=== PATIENT | male | born 1955 | race Caucasian/White ===

== ENCOUNTER → 2019-06-03 09:16 | Outpatient (CLI) | payer MEDICARE, OTHER, SELFPAY ==
[2019-06-03 10:12] LABS: Alanine Aminotransferase 9 IU/L (<50); Albumin 4.3 g/dL (3.5-5.0); Albumin Globulin Ratio 1.7 (1.0-2.8); Alkaline Phosphatase 70 U/L (38-126); Aspartate Aminotransferase 22 IU/L (17-59); BUN Creatinine Ratio 25.6 (6-22); Bilirubin Total 0.6 mg/dL (0.2-1.3); Blood Urea Nitrogen 23 mg/dL (9-20); Calcium 9.6 mg/dL (8.4-10.2); Carbon Dioxide 31 mmol/L (22-32); Chloride 104 mmol/L (98-107); Cholesterol 159 mg/dL (140-199); Estimated Glomerular Filt Rate > 60.0 mL/min (>60); Globulin 2.6 g/dL (1.7-4.1); Glucose 109 mg/dL (80-110); HDL Cholesterol 60 mg/dL (40-60); HEMOLYSIS < 15 (0-50); LDL Cholesterol Calculated 80 mg/dL (<100); Potassium 3.8 mmol/L (3.4-5.1); Sodium 142 mmol/L (137-145); Total Protein 6.9 g/dL (6.3-8.2); Triglycerides 93 mg/dL (35-150)
[2019-06-03 10:42] LABS: Prostate Specific Antigen 1.62 ng/mL (0.10-4.00)
[2019-06-03 14:42] LABS: Creatinine Urine Random 99.7 mg/dL
[2019-06-03 14:45] LABS: Microalbumin Urine Random 0.8 mg/dL (0-1.6)
== END ==
PROVIDERS: PCP Nurse Practitioner Family; Visit Provider Nurse Practitioner Family
DX: Z13.6 Encounter for screening for cardiovascular disorders (principal); Z12.5 Encounter for screening for malignant neoplasm of prostate; I10 Essential (primary) hypertension
CPT/HCPCS: 36415; 80053; 80061; 82043; 82570; 84153

== ENCOUNTER → 2019-08-14 14:41 | Outpatient (CLI) | payer MEDICARE, OTHER, SELFPAY ==
--- NOTE | 2019-08-14 | DI.US.S_ITS ---
PROCEDURE: US ABD AORTA ANEURYSM SCREEN INDICATIONS: AAA SCREEN TECHNIQUE: Real time scanning was performed of the aorta and iliac arteries, with image documentation. COMPARISON: None. FINDINGS: Aorta: Proximal aortic diameter measures 2.7 cm. Mid-aorta measures 2.3 cm. Distal aortic diameter is 2.3 cm. Iliac arteries: Right common iliac artery measures 1.4 cm. Left common iliac artery measures 1.4 cm. IMPRESSION: No sonographic evidence for aneurysmal dilatation of the abdominal aorta. There is ectasia of the proximal abdominal aorta measuring up to 2.7 cm in diameter. Recommend followup imaging in 5 years. Dictated by: Iván Doty M.D. on 08/14/2019 at 22:07 Approved by: Iván Doty M.D. on 08/14/2019 at 22:10
== END ==
PROVIDERS: Family Provider Nurse Practitioner Family; PCP Nurse Practitioner Family; Visit Provider Nurse Practitioner Family
DX: Z13.6 Encounter for screening for cardiovascular disorders (principal); I77.811 Abdominal aortic ectasia
CPT/HCPCS: 76706

== ENCOUNTER → 2019-09-22 06:46 | Outpatient (CLI) | payer MEDICARE, OTHER, SELFPAY ==
--- NOTE | 2019-09-22 | DI.ECHO.S_ITS ---
[facility]---------+ [facility] +---------+ : : [address] : : : : [id number] : : : : Phone: [phone]+ Echocardiogram Report + + :Name: EVER WESLEY Study Date: 09/22/2019 Height: 72 in : :[facility] Weight: 227 lb : : Gender: Male BSA: 2.2 m2 : :: 1955 Age: 64 yrs BP: 158/86 mmHg: :Reason For Study: Atrial fibrillation : :Ordering Physician: Itzel : :Cierami Performed By: Rose Kumari : :Referring: MODESTO OSUNA : + + Interpretation Summary 1) Mildly increased left ventricular thickness (concentric) with normal size, wall motion, and systolic function (EF 60-65%). 2) The right ventricle is normal in size and function. 3) No significant valvular abnormalities. 4) The ascending aorta is mildly enlarged at 3.8cm. 5) No prior Echo available for comparison. Procedure: A two-dimensional transthoracic echocardiogram with color flow and Doppler was performed. The study quality was technically adequate. There is no prior echocardiogram noted for this patient. The patient was in sinus bradycardia with heart rates between 49-63 bpm during the exam. Left Ventricle: The left ventricle is normal in size. There is mild concentric left ventricular hypertrophy. The ejection fraction is estimated to be 60-65%. Diastolic parameters suggest probable normal left ventricular diastolic function and normal filling pressures. Right Ventricle: The right ventricle is normal in size and function. Atria: The left atrium is mildly dilated. Right atrial size is normal. There is no Doppler evidence for an interatrial shunt. Mitral Valve: The mitral valve is normal in structure and function. There is mild mitral regurgitation. Aortic Valve: The aortic valve is trileaflet. There is mild aortic valve sclerosis. There is no aortic valve stenosis. No aortic regurgitation is present. Tricuspid Valve: The tricuspid valve is normal in structure and function. There is mild tricuspid regurgitation. Right ventricular systolic pressure is estimated to be 23 mmHg plus the clinically estimated CVP which cannot be estimated on this exam. Pulmonic Valve: The pulmonic valve is normal in structure and function. There has been no significant change since the previous study. Great Vessels: The aortic root is normal size. The ascending aorta is mildly enlarged. The inferior vena cava was not well visualized. Pericardium/ Pleura There is no pericardial effusion. There is no pleural effusion. MMode/2D Measurements & Calculations LVIDd: 5.0 cm LVOT diam: 2.3 cm LVIDs: 3.0 cm Ao root diam: 3.1 cm FS: 39.5 % asc Aorta Diam: 3.8 cm EPSS: 0.42 cm Ao Arch Diam (Prox Trans): 2.8 cm IVSd: 1.2 cm LVPWd: 1.0 cm LV [place]. diameter/BSA (cm/m^2): 2.2 LV sys. diameter/BSA (cm/m^2): 1.4 LA A2 area: 28.9 cm2 RA long axis: 5.4 cm LA A4 area: 19.9 cm2 RA area: 20.2 cm2 LA length (vol): 5.6 cm RA vol: 64.4 ml LA vol: 86.5 ml RA : 28.6 ml/m2 LA vol index: 38.5 ml/m2 RVD1 (basal): 3.9 cm TAPSE: 2.2 cm Doppler Measurements & Calculations Ao V2 max: 172.0 cm/sec LVOT Max Tyrone: 133.2 cm/sec Ao V2 mean: 110.7 cm/sec LV V1 max P.1 mmHg Ao max P.8 mmHg LV V1 VTI: 26.3 cm Ao mean P.8 mmHg JAREN(I,D): 3.0 cm2 Ao V2 VTI: 37.3 cm JAREN(V,D): 3.3 cm2 sev ratio: 0.71 JAREN indexed to BSA (cm^2/m^2): 1.3 MV E max tyrone: 87.6 cm/sec TR max tryone: 237.7 cm/sec MV A max tyrone: 84.1 cm/sec TR max P.6 mmHg MV E/A: 1.0 PA V2 max: 89.4 cm/sec Med Peak E' Tyrone: 8.6 cm/sec PA V2 mean: 62.8 cm/sec E/E' med: 10.1 PA mean P.8 mmHg Lat Peak E' Tyrone: 14.4 cm/sec PA pr(Accel): 28.1 mmHg E/E' lat: 6.1 E/e' average: 8.1 MV dec time: 0.22 sec MV P1/2t: 68.6 msec MV P1/2t max tyrone: 88.9 cm/sec SV(LVOT): 110.8 shanique MVA(P1/2t): 3.2 cm2 Reading Physician:09:36 AM
== END ==
PROVIDERS: Family Provider Nurse Practitioner Family; PCP Nurse Practitioner Family; Referring Provider Internal Medicine Cardiovascular Disease; Visit Provider Internal Medicine Cardiovascular Disease
DX: I08.3 Combined rheumatic disorders of mitral, aortic and tricuspid valves (principal); I77.89 Other specified disorders of arteries and arterioles; I48.0 Paroxysmal atrial fibrillation
CPT/HCPCS: 93306

== ENCOUNTER → 2019-11-27 08:18 | Outpatient (CLI) | payer MEDICARE, OTHER, SELFPAY ==
[2019-11-27 09:17] LABS: Add Manual Diff / Slide Review NO; Basophils Absolute Auto 100 /uL (0-100); Basophils Percent Auto 1.1 % (0-2); Eosinophils Absolute Auto 100 /uL (0-450); Eosinophils Percent Auto 2.5 % (2-4); Hematocrit 45.4 % (41-53); Hemoglobin 15.6 g/dL (13.5-17.5); Lymphocytes Absolute Auto 1300 /uL (1100-4500); Lymphocytes Percent Auto 22.6 % (25-40); Mean Corpuscular HGB Conc 34.3 % (30-36); Mean Corpuscular Hemoglobin 31.2 PG (26-34); Mean Corpuscular Volume 90.7 fL (80-100); Monocytes Absolute Auto 400 /uL (0-900); Monocytes Percent Auto 7.9 % (3-14); Neutrophils Absolute Auto 3700 /uL (1500-7000); Neutrophils Percent Auto 65.9 % (50-75); Platelet Count 182 X10^3/uL (150-400); Red Blood Cell Count 5.01 X10^6/uL (4.5-5.9); Red Cell Distribution Width 13.7 % (11.6-14.8); White Blood Cell Count 5.7 X10^3/uL (4.5-11.0)
[2019-11-27 09:38] LABS: BUN Creatinine Ratio 30.8 (6-22); Blood Urea Nitrogen 24 mg/dL (9-20); Calcium 9.3 mg/dL (8.4-10.2); Carbon Dioxide 28 mmol/L (22-32); Chloride 106 mmol/L (98-107); Estimated Glomerular Filt Rate > 60.0 mL/min (>60); Glucose 109 mg/dL (80-110); HEMOLYSIS < 15 (0-50); Sodium 141 mmol/L (137-145)
== END ==
PROVIDERS: Family Provider Nurse Practitioner Family; PCP Nurse Practitioner Family; Referring Provider Internal Medicine Cardiovascular Disease; Visit Provider Internal Medicine Cardiovascular Disease
DX: I10 Essential (primary) hypertension (principal)
CPT/HCPCS: 36415; 80048; 85025

== ENCOUNTER → 2020-02-13 07:29 | Outpatient (CLI) | payer MEDICARE, OTHER, SELFPAY ==
[2020-02-13 07:43] LABS: Add Manual Diff / Slide Review NO; Basophils Absolute Auto 100 /uL (0-100); Eosinophils Absolute Auto 100 /uL (0-450); Eosinophils Percent Auto 1.7 % (2-4); Hematocrit 47.4 % (41-53); Hemoglobin 16.4 g/dL (13.5-17.5); Lymphocytes Absolute Auto 1100 /uL (1100-4500); Lymphocytes Percent Auto 17.7 % (25-40); Mean Corpuscular HGB Conc 34.5 % (30-36); Mean Corpuscular Hemoglobin 31.1 PG (26-34); Monocytes Absolute Auto 400 /uL (0-900); Neutrophils Absolute Auto 4700 /uL (1500-7000); Neutrophils Percent Auto 72.6 % (50-75); Platelet Count 198 X10^3/uL (150-400); Red Blood Cell Count 5.27 X10^6/uL (4.5-5.9); Red Cell Distribution Width 13.5 % (11.6-14.8); White Blood Cell Count 6.4 X10^3/uL (4.5-11.0)
[2020-02-13 07:55] LABS: Alanine Aminotransferase 9 IU/L (<50); Albumin 4.4 g/dL (3.5-5.0); Albumin Globulin Ratio 1.6 (1.0-2.8); Alkaline Phosphatase 76 U/L (38-126); Aspartate Aminotransferase 21 IU/L (17-59); BUN Creatinine Ratio 29.4 (6-22); Bilirubin Total 0.8 mg/dL (0.2-1.3); Blood Urea Nitrogen 25 mg/dL (9-20); Calcium 9.9 mg/dL (8.4-10.2); Carbon Dioxide 27 mmol/L (22-32); Chloride 107 mmol/L (98-107); Estimated Glomerular Filt Rate > 60.0 mL/min (>60); Globulin 2.7 g/dL (1.7-4.1); Glucose 114 mg/dL (80-110); HEMOLYSIS < 15 (0-50); Potassium 4.1 mmol/L (3.4-5.1); Sodium 140 mmol/L (137-145); Total Protein 7.1 g/dL (6.3-8.2)
[2020-02-13 08:28] LABS: HEMOLYSIS 19 (0-50); Iron 243 ug/dL (49-181)
[2020-02-13 08:30] LABS: Ferritin 42 ng/mL (18-464)
[2020-02-13 08:39] LABS: Percent Iron Saturation 92 % (20-50); Total Iron Binding Capacity 265 ug/dL (261-462); Transferrin 204 mg/dL (206-381)
== END ==
PROVIDERS: Internal Medicine Hematology & Oncology; Family Provider Nurse Practitioner Family; PCP Nurse Practitioner Family; Referring Provider Nurse Practitioner Family; Visit Provider Nurse Practitioner Family
DX: Z13.820 Encounter for screening for osteoporosis (principal); R29.890 Loss of height; C43.9 Malignant melanoma of skin, unspecified; E83.119 Hemochromatosis, unspecified; Z00.00 Encounter for general adult medical examination without abnormal findings; Z87.891 Personal history of nicotine dependence
CPT/HCPCS: 36415; 77080; 80053; 82728; 83540; 83550; 85025

== ENCOUNTER → 2020-02-20 14:27 | Outpatient (CLI) | payer MEDICARE, OTHER, SELFPAY ==
[2020-02-21 18:24] LABS: COVID19 Sendout Not Detected (Not Detect)
== END ==
PROVIDERS: Family Provider Nurse Practitioner Family; PCP Nurse Practitioner Family; Visit Provider Physician Assistant
DX: Z11.59 Encounter for screening for other viral diseases (principal)
CPT/HCPCS: 87635

== ENCOUNTER 2020-02-23 07:16 | Day surgery (SDC) | payer MEDICARE, OTHER, SELFPAY ==
[2020-02-23 07:33] VITALS: BP 150/86; PULSE 82; RESP 16; TEMP 36.1; O2SAT 96; BMI 28.5
[2020-02-23] MEDS: LACTATED RINGERS 1,000 ML 200 ML IV ×2 (07:48→08:07)
--- NOTE | 2020-02-23 07:56 | PM.HP.1 ---
History of Present Illness History of Present Illness Date Patient Seen: 02/23/20 Time Patient Seen: 07:56 Chief complaint: [facility] [place] Narrative: The patient presents for colorectal sreening. The previous colonoscopy 10 years ago which was normal. No personal or family history of colon cancer. On further history denies any recent gastrointestinal symptoms. No nausea, vomiting, abdominal pain, loss of appetite, unexplained weight loss, change in bowel habits, diarrhea, constipation, melena, hematochezia, or bright red blood per rectum. Patient History Medical History Ankle pain (Inactive ~2001) Aortic ectasia, abdominal (Acute 07/2019) Atrial fibrillation (Chronic 2004) Balance problem (Acute 2016) Cervical spine disease (Chronic ~2007) Chronic back pain (Chronic ~1993) Degenerative joint disease (DJD) of lumbar spine (Chronic ~1994) Fractures (Resolved ~1969) GERD (gastroesophageal reflux disease) (Chronic 2004) GI bleeding (Inactive ~2002) Hearing loss (Chronic) Hemochromatosis (Chronic 2011) History of melanoma in situ (Acute 2016) History of smoking 10-25 pack years (Chronic) Hypertension (Chronic 1999) Melanoma (Chronic ~2016) Mumps (Resolved ~1959) Positive PPD (Inactive ~1994) Rubella (Resolved ~1960) Shoulder pain (Chronic ~2018) Sleep apnea (Chronic ~2008) Vision disorder (Chronic) Surgical History Anesthesia (Resolved) History of ankle fusion (Resolved ~01/2013) History of arthroscopy of left knee (Resolved ~01/2014) History of inguinal hernia repair (Resolved) History of left hip replacement (Resolved ~2008) History of tonsillectomy (Resolved ~1959) Family & Social History Family History Father History of heart disease Congestive heart failure Mother History of heart disease Congestive heart failure Brother Hypertension Grandfather History of heart disease Congestive heart failure Grandmother No problems noted. Grandfather Kidney disease Grandmother Aneurysm Social History: household members spouse Tobacco & Substance use: Smoking Status Former smoker alcohol intake never Substance Use Type does not use Meds Home Medications and Allergies Home Medications Medication Instructions Recorded Confirmed Type cholecalciferol (vitamin D3) 25 1,000 unit PO BID cap 06/03/19 02/23/20 History mcg (1,000 unit) capsule clindamycin HCl 150 mg capsule 600 mg PO ONCE PRN cap 06/03/19 02/23/20 History multivitamin 1 tab PO DAILY 06/03/19 02/23/20 History propafenone 325 mg 325 mg PO BID cap 06/03/19 02/23/20 History capsule,extended release 12 hr diltiazem HCl 420 mg capsule,24 420 mg PO QAM 09/15/19 02/23/20 History hr,extended release apixaban 5 mg tablet 5 mg PO BID 09/17/19 02/23/20 History famotidine 20 mg tablet 20 mg PO DAILY #90 tab 12/31/19 02/23/20 Rx Allergies Allergy/AdvReac Type Severity Reaction Status Date / Time Penicillins Allergy Mild Hives, Verified 09/20/19 12:50 swelling Review of Systems Review of Systems Narrative: A 10 point review of systems is negative except as noted in the HPI Exam Vital Signs (past 8 hours): - 02/23/20 07:33 Temperature 97.0 F L Pulse Rate 82 Respiratory Rate 16 Blood Pressure 150/86 H Pulse Oximetry 96 Oxygen Delivery Method Room Air Narrative Exam Narrative: General-no acute distress, well nourished HEENT-moist mucous membranes, no scleral icterus Neck-supple, no lymphadenopathy Chest- non labored respirations, clear to auscultation bilaterally Cardiac-regular rate no peripheral edema Abdomen-soft, nontender, non distended Extremities-warm, well perfused Neurological-alert and oriented, no focal deficits Assessment & Plan Assessment and plan (1) Screening for colon cancer: Status: Acute Assessment & Plan narrative: The patient requires colorectal screening and colonoscopy is recommended. Technical details were discussed. Risks, benefits, alternatives explained. Risks including but not limited to myocardial infarction, aspiration, bleeding, pain, missed lesion, incomplete examination, need for further radiographic studies, colonic perforation, and need for major abdominal surgery were discussed. All questions were answered to their satisfaction, and they are in agreement with this plan.
[2020-02-23] MEDS: fentaNYL 250 MCG/5 ML INJ IV (08:02)
[2020-02-23] MEDS: MIDAZOLAM 5 MG/5 ML VIAL IV (08:02)
--- NOTE | 2020-02-23 08:26 | PM.OP.ENDO ---
Operative Date/Time/Diagnoses Date of procedure: 02/23/20 Time of procedure: 08:26 Pre-op diagnosis: Screening colonoscopy Post-op diagnosis: same Procedure & Clinicians Study performed: Colonoscopy Same procedure as scheduled: Yes Indications: 65-year-old male last colonoscopy 10 years ago presents for routine screening. Surgeon: Everett Felix Procedure Notes SCOAP/Timeout: Performed Procedure in detail: Patient placed in left lateral recumbent position. Time out was performed. Procedural sedation was administered with Versed and Fentanyl. Examination began with a thorough inspection of the perianal area there was no evidence of fissures, fistulae, external hemorrhoids or cutaneous malignancy. The colonoscopy scope was then placed into the rectum the the lumen was insufflated with air. The scope was carefully advanced forward. Ultimately the cecum was intubated and confirmed by identification of the ileocecal valve and the confluence of the taenia. The scope was then slowly withdrawn examining colon thoroughly in all directions. In the rectum the rectal columns were identified and retroflexion of the scope was performed for inspection of the distal rectum and anal canal. The colonoscopy was notable for the followin. Quality of the preparation-fair 2. No masses or polyps 3. Sigmoid diverticulosis. Scope withdrawal time: 6 Sedation minutes: 20 Findings: diverticulosis Specimen(s): none sent Complications: none Impression: Diverticulosis Post-procedure Recommendations: Colonscopy in 10 years Disposition: same day surgery
[2020-02-23 08:29] VITALS: BP 124/80; PULSE 76; RESP 16; TEMP 36.8; O2SAT 97
[2020-02-23 08:35] VITALS: BP 121/81; PULSE 70; RESP 13; O2SAT 97
[2020-02-23 08:40] VITALS: BP 102/67; PULSE 75; RESP 14; TEMP 36.6; O2SAT 96
[2020-02-23 09:04] VITALS: BP 137/79; PULSE 74; RESP 16; TEMP 36.7; O2SAT 96
== END 2020-02-23 09:03 | disposition home or self-care (01) ==
PROVIDERS: Family Provider Nurse Practitioner Family; PCP Nurse Practitioner Family; Referring Provider Nurse Practitioner Family; Visit Provider Surgery
PROC: 0DJD8ZZ Inspection of Lower Intestinal Tract, Via Natural or Artificial Opening Endoscopic (ICD-10-PCS; CPT 45378; principal; 2020-02-23 08:30)
DX: Z12.11 Encounter for screening for malignant neoplasm of colon (principal); K57.30 Diverticulosis of large intestine without perforation or abscess without bleeding; K21.9 Gastro-esophageal reflux disease without esophagitis; I10 Essential (primary) hypertension; G47.30 Sleep apnea, unspecified
CPT/HCPCS: G0121; 99152; J2250; J3010

== ENCOUNTER → 2020-03-10 09:02 | Outpatient (CLI) | payer MEDICARE, OTHER, SELFPAY ==
[2020-03-10 10:29] LABS: Free T4, Direct Thyroxine 1.06 ng/dL (0.78-2.19)
[2020-03-10 10:43] LABS: Thyroid Stimulating Hormone 2.05 uIU/mL (0.47-4.68)
[2020-03-10 11:09] LABS: Vitamin B12 Reflex MMA if <400 770 pg/mL (239-931)
== END ==
PROVIDERS: Family Provider Nurse Practitioner Family; PCP Nurse Practitioner Family; Referring Provider Psychiatry & Neurology Neurology; Visit Provider Psychiatry & Neurology Neurology
DX: R26.9 Unspecified abnormalities of gait and mobility (principal); G60.3 Idiopathic progressive neuropathy; R27.9 Unspecified lack of coordination
CPT/HCPCS: 36415; 82607; 84439; 84443

== ENCOUNTER 2020-08-18 09:45 | Outpatient (RCR) | payer MEDICARE, OTHER, SELFPAY ==
--- NOTE | 2020-07-20 14:57 | PT.OIE ---
Current Diagnoses Unspecified abnormalities of gait and mobility (07/20/20) Past Medical History (Last Reviewed 02/23/20 @ 07:57 by Everett Felix MD) Ankle pain (~2001) Aortic ectasia, abdominal (07/2019) Atrial fibrillation (2004) Balance problem (2016) Cervical spine disease (~2007) Chronic back pain (~1993) Degenerative joint disease (DJD) of lumbar spine (~1994) Fractures (~1969) GERD (gastroesophageal reflux disease) (2004) GI bleeding (~2002) Hearing loss Hemochromatosis (2011) History of melanoma in situ (2016) History of smoking 10-25 pack years Hypertension (1999) Melanoma (~2016) Mumps (~1959) Positive PPD (~1994) Rubella (~1960) Shoulder pain (~2018) Sleep apnea (~2008) Vision disorder Past Surgical History (Last Reviewed 02/23/20 @ 07:57 by Everett Felix MD) Anesthesia History of ankle fusion (~01/2013) History of arthroscopy of left knee (~01/2014) History of inguinal hernia repair History of left hip replacement (~2008) History of tonsillectomy (~1959) Visit Care Team Role Provider Type VIVI Ponce Family Provider Advanced Customer Service Technician Primary Care Provider Specialty: Family Practice Address: [address] [place] [address], [id number] Email: [email or web address] Ofelia Neal MD Attending Provider Non-Staff Referring Provider Specialty: Neurology Address: [address] [place] [address], [id number] Email: Physical Therapy Initial Evaluation PT-OP-A Visit Information Start: 07/15/20 15:29 Freq: Status: Active Protocol: Document 07/20/20 13:01 MB (Rec: 07/20/20 13:18 MB [id number]) Out-Patient Physical Therapy Visit Information Visit Information Visit Type Initial Evaluation Visit Start Time 13:01 Visit Stop Time 14:00 Total Visit Minutes 59 Visit Number 1 Evaluation Information Evaluation Date 07/20/20 PT-OP-B Current Condition Start: 07/15/20 15:29 Freq: Status: Active Protocol: Document 07/20/20 13:01 MB (Rec: 07/20/20 13:18 MB [id number]) Current Condition History of Current Condition Onset Date 2015 Current Complaints Balance and inability to walk in a straight line History of Current Condition PMH: increased ferritin from hemochromatosis, right ankle surgery 2001 to remove bone spurs and pt had trouble and then had to have fusion in 2012. He has history of arthritis. Pt reports that since surgery 2012, his toes went numb and he never got his sensation back. He has three screws in. Further PMH: HTN, a -fib and on blood thinner, left THR 2008, vericose veins, neck arthritis. If pt turns his head to the left for long enough, he gets tingling near brachial plexus and into shoulder. If he turns his head to the right, he can get paresthesias down to the top of his thumb. Pt reports history of light- headedness and dizziness with turning in the bed that he no longer gets. Pt occ gets cervicogenic headaches. Pt has trouble walking on unstable surfaces and falls to the right. His last fall was in 2019. He is stable on his sailboat. Pt lives on his sailboat. Pt reports arthritic pain 2/10 in his hands, 2/10 in his posterior neck, 1/10 in his SI area and 1/10 in his right ankle. Prior Treatments and Tests PT for right ankle, neck and LB. Pt liked relieving the pain. He likes visuals with exercises. Treatment Goals Patient/Caregiver Goals Find out something to help his balance PT-OP-C Subjective Start: 07/15/20 15:29 Freq: Status: Active Protocol: Document 07/20/20 13:01 MB (Rec: 07/20/20 13:18 MB [id number]) OP-PT Subjective Patient Comments Patient Comments See history of current condition Patient Questionnaires Lower Extremity Functional Scale LEFS Score 55 LEFS Impairment 20 to 39% Impaired (Score 48- 62) PT-OP-D Balance Start: 07/15/20 15:29 Freq: Status: Active Protocol: Document 07/20/20 13:01 MB (Rec: 07/20/20 14:52 MB [id number]) Balance Tests Other Other Balance Tests Performed Components of FGA performed with bare feet including head turns, walking backwards and walking with eyes shut and pt has no LOB with these tasks. He cannot perform Tandem gait d/t LOB. PT-OP-G Mobility & Gait Start: 07/15/20 15:29 Freq: Status: Active Protocol: Document 07/20/20 13:01 MB (Rec: 07/20/20 14:52 MB [id number]) OP Gait Assessment Gait Gait Assistance Required: Independent Distance (Feet) 100 Able to Maintain Weight Bearing Status Yes During Gait Assistive Devices Assistive Device None Orthotic/Prosthetic Devices or Brace: No Factors Limiting Gait Function Factors Limiting Gait Function Decreased Strength,Limited Range of Motion,Poor Balance Comments Gait Comments Gait in bare feet several reps in the hallway: pt with right foot anomalies that make gait appear to be favoring the right foot and the right foot presents with functional foot drop--decreased push off, rigid ankle and mid foot and hyper extension/whipping type reponse of right knee with final WB phase of gait. Pt reports increased listing to the right or LOB with increased gait distance at home and so 6MWT performed with pt wearing his shoes and socks and he gait trains 1254 feet in 6 minutes, favoring the right foot and no LOB PT-OP-J Posture/Palpation/Skin Start: 07/15/20 15:29 Freq: Status: Active Protocol: Document 07/20/20 13:01 MB (Rec: 07/20/20 14:52 MB [id number]) Posture Evaluation Comments Posture Comments Many postural changes in standing, pt barefoot: left tragus 3 in front of left AC joint, decreased cervical lordosis, Dowager's hump, decreased thoracic kyphosis, elevated shoulders, curvature reversal and left convexity lower thoracic area, decreased lumbar lordosis, skin changes B distal LEs with edema right greater than left LE, left shoulder and iliac crest higher than the right, B knee valgus and B foot anomalies, greater on the right with supinated foot on the right and mildly pronated on the left, right calf is atrophied compared to the left. Pt stands with right foot slightly in front of the left. PT-OP-K Range of Motion Start: 07/15/20 15:29 Freq: Status: Active Protocol: Document 07/20/20 13:01 MB (Rec: 07/20/20 14:52 MB [id number]) Cervical Spine Range of Motion Cervical Spine Active Testing Position Standing Flexion 20 Extension 15 Rotation Left 15 Rotation Right 20 Lateral Flexion Left 10 Lateral Flexion Right 10 Comments Postural changes contribute to cervical ROM loss Ankle and Foot Goniometric Range of Motion Ankle and Foot ROM Limitations Comments B foot changes, greater on the right with pt with very little active eversion and inversion, less than 5 deg each on the right foot. Right ankle DF 5 deg with leg extended in supine. With attempted heel raises in standing, pt can clear right heel x5 with excessive right knee flexion and thrusting weight forward. PT-OP-M Strength Start: 07/15/20 15:29 Freq: Status: Active Protocol: Document 07/20/20 13:01 MB (Rec: 07/20/20 14:52 MB [id number]) Hip Strength Hip Manual Muscle Testing Left Flexion (L2) 5 Normal Abduction 3+ Fair+ Right Flexion (L2) 3+ Fair+ Abduction 4 Good Knee Strength Knee Manual Muscle Testing Left Flexion (S2) 5 Normal Extension (L3) 5 Normal Right Flexion (S2) 5 Normal Extension (L3) 5 Normal Ankle/Foot Strength Ankle and Foot Manual Muscle Testing Left Dorsiflexion (L4) 5 Normal Inversion 4 Good Eversion (S1) 4 Good Comments Pt performs 20 reps heel raises in standing with B hand support against the wall Right Comments MMT is not accurate in setting of ROM losses from old ankle fusion and functional foot drop with gait requiring increased right knee flexion Toe Strength Toe Manual Muscle Testing Left Great Toe Extension 3+ Fair+ Comments Left 5th toe does not extend with the rest of toes when observed Right Great Toe Extension 3+ Fair+ PT-OP-T Assessment and Plan Start: 07/15/20 15:29 Freq: Status: Active Protocol: Document 07/20/20 13:01 MB (Rec: 07/20/20 14:52 MB [id number]) Physical Therapy Assessment Rehab Potential Rehabilitation Potential Fair Evaluation Complexity Number of Personal Factors/Comorbidities 1-2 Number of Body Systems Impaired 1-2 Clinical Presentation at Evaluation Evolving Impairments Impairments Balance,Gait,Integument,Pain, Posture,ROM,Sensation,Soft Tissue Mobility,Strength Other Impairments Pt reports numbness on the ball of his left foot. He presents with integumentary changes from hemachromatosis and B LE edema. Other Concerns Fall Risk Yes Goals 5 Infection Prevention Coordinator Goal (LTG) Pt will perform progressive HEP with I including flexibility, alignment, balance, strengthening and gait activities to improve range of motion, strength and balance by 09/17/20. LTG Duration 8 weeks 4 Usp Goal (LTG) Pt will gait train at least 1600 feet in 6 minutes without LOB to improve ability to walk with for exercise by 09/17/20. LTG Duration 8 weeks 3 Infection Prevention Coordinator Goal (LTG) Pt will present with improved B hip flexion and abduction strength to 5/5 to improve balance and functional strength by 09/17/20. LTG Duration 8 weeks 2 Impairment Reports of falls, listing to the right, unable to perform Tandem gait Usp Goal (LTG) Pt will present WNLs on a standardized balance test to decrease fall risk by 09/17/20. LTG Duration 8 weeks 1 Impairment LEF reflects 31.25% impairment Usp Goal (LTG) Pt will present with an improved LEF score to reflect no more than 25% impairment to improve functional tasks and balance by 09/17/20. LTG Duration 8 weeks Assessment Summary Assessment Pt is a 65 y/o male presenting with right foot numbness, post-op changes from right ankle fusion in 2012, limited right ankle ROM and strength, poor balance, many postural changes of his spine that all contribute to his reports of poor balance and trouble walking for exercise with his . He reports walking on inclines and for increased duration are difficult and that he occ lists to the right and/or loses his balance. He and his live on their sail boat and he denies falls on the boat. He presents with right greater than left LE edema and skin changes that he states is d/t hemachromatosis and being on a blood thinner for a-fib. Post-op changes and lymphatic/integumentary changes and edema are barriers to PT. Pt presents with severe cervical spine limitations that also affect his ability to turn his head with functional tasks and gait and since this also contributes to balance impairment, PT course will include cervical intervention as well. Will also consider assessing VOR and other cervicogenic components to his presentation. He will benefit from PT to improve range, flexibility, functional strength, balance and gait. PT interventions may include exercise, manual therapy including fascial Counterstrain and other functional activities. Physical Therapy Plan Frequency and Duration Frequency of Treatment 2x/Week Duration of Treatment 8 weeks Plan of Care Start Date 07/20/20 Plan of Care End Date 09/20/20 Therapeutic Interventions Therapeutic Interventions Balance Training,Canalithic Repositioning,Coordination Training,Gait Training,Home Exercise Program,Joint Mobilizations,Manual Therapy, Neuromuscular Re-education, Patient/Caregiver Education, Self-Care/Home Management, Sensory Integration,Soft Tissue Mobilization,Taping, Therapeutic Activities, Therapeutic Exercises Modalities Cold Pack/Ice Massage,Hot Packs Next Visit Focus/Plan Next Note Type Treatment Note Next Visit Plan Initiate flexibility exercises
--- NOTE | 2020-07-20 14:57 | PT.OPPOC ---
Physical, Occupational & Speech Therapy At [facility] Current Diagnoses Unspecified abnormalities of gait and mobility (07/20/20) Visit Care Team Role Provider Type VIVI Ponce Family Provider Advanced Manager Paid Primary Care Provider Specialty: Family Practice Address: [address] [place] [address], [id number] Email: [email or web address] Ofelia Neal MD Attending Provider Non-Staff Referring Provider Specialty: Neurology Address: [address] [place] [address], [id number] Email: Plan Of Care PT-OP-T Assessment and Plan Start: 07/15/20 15:29 Freq: Status: Active Protocol: Document 07/20/20 13:01 MB (Rec: 07/20/20 14:52 MB [id number]) Physical Therapy Assessment Rehab Potential Rehabilitation Potential Fair Evaluation Complexity Number of Personal Factors/Comorbidities 1-2 Number of Body Systems Impaired 1-2 Clinical Presentation at Evaluation Evolving Impairments Impairments Balance,Gait,Integument,Pain, Posture,ROM,Sensation,Soft Tissue Mobility,Strength Other Impairments Pt reports numbness on the ball of his left foot. He presents with integumentary changes from hemachromatosis and B LE edema. Other Concerns Fall Risk Yes Goals 5 Assistant Fitness Manager Goal (LTG) Pt will perform progressive HEP with I including flexibility, alignment, balance, strengthening and gait activities to improve range of motion, strength and balance by 09/17/20. LTG Duration 8 weeks 4 [facility] Goal (LTG) Pt will gait train at least 1600 feet in 6 minutes without LOB to improve ability to walk with for exercise by 09/17/20. LTG Duration 8 weeks 3 [facility] Goal (LTG) Pt will present with improved B hip flexion and abduction strength to 5/5 to improve balance and functional strength by 09/17/20. LTG Duration 8 weeks 2 Impairment Reports of falls, listing to the right, unable to perform Tandem gait Assistant Fitness Manager Goal (LTG) Pt will present WNLs on a standardized balance test to decrease fall risk by 09/17/20. LTG Duration 8 weeks 1 Impairment LEF reflects 31.25% impairment [facility] Goal (LTG) Pt will present with an improved LEF score to reflect no more than 25% impairment to improve functional tasks and balance by 09/17/20. LTG Duration 8 weeks Assessment Summary Assessment Pt is a 65 y/o male presenting with right foot numbness, post-op changes from right ankle fusion in 2012, limited right ankle ROM and strength, poor balance, many postural changes of his spine that all contribute to his reports of poor balance and trouble walking for exercise with his . He reports walking on inclines and for increased duration are difficult and that he occ lists to the right and/or loses his balance. He and his live on their sail boat and he denies falls on the boat. He presents with right greater than left LE edema and skin changes that he states is d/t hemachromatosis and being on a blood thinner for a-fib. Post-op changes and lymphatic/integumentary changes and edema are barriers to PT. Pt presents with severe cervical spine limitations that also affect his ability to turn his head with functional tasks and gait and since this also contributes to balance impairment, PT course will include cervical intervention as well. Will also consider assessing VOR and other cervicogenic components to his presentation. He will benefit from PT to improve range, flexibility, functional strength, balance and gait. PT interventions may include exercise, manual therapy including fascial Counterstrain and other functional activities. Physical Therapy Plan Frequency and Duration Frequency of Treatment 2x/Week Duration of Treatment 8 weeks Plan of Care Start Date 07/20/20 Plan of Care End Date 09/20/20 Therapeutic Interventions Therapeutic Interventions Balance Training,Canalithic Repositioning,Coordination Training,Gait Training,Home Exercise Program,Joint Mobilizations,Manual Therapy, Neuromuscular Re-education, Patient/Caregiver Education, Self-Care/Home Management, Sensory Integration,Soft Tissue Mobilization,Taping, Therapeutic Activities, Therapeutic Exercises Modalities Cold Pack/Ice Massage,Hot Packs Next Visit Focus/Plan Next Note Type Treatment Note Next Visit Plan Initiate flexibility exercises Plan of Care Dates Plan of Care Start Date 07/20/20 Plan of Care End Date 09/20/20 Electronically Signed by: Sarah Bridges PT 07/20/20 2149 Please Sign and Return: I have reviewed this Plan of Care and certify that the skilled therapy services above are required to meet the patient?s needs. Physician Signature Date Printed Name and Credentials Clinical Instructor Signature Printed Name and Credentials
--- NOTE | 2020-07-23 13:44 | PT.OTN ---
Current Diagnoses Unspecified abnormalities of gait and mobility (07/23/20) Physical Therapy Treatment Note PT-OP-A Visit Information Start: 07/15/20 15:29 Freq: Status: Active Protocol: Document 07/23/20 13:02 MB (Rec: 07/23/20 13:43 MB [id number]) Out-Patient Physical Therapy Visit Information Visit Information Visit Type Treatment Note Visit Start Time 13:02 Visit Stop Time 13:45 Total Visit Minutes 43 Visit Number 2 PT-OP-B Current Condition Start: 07/15/20 15:29 Freq: Status: Active Protocol: Document 07/20/20 13:01 MB (Rec: 07/20/20 13:18 MB [id number]) Current Condition History of Current Condition Onset Date 2015 Current Complaints Balance and inability to walk in a straight line History of Current Condition PMH: increased ferritin from hemochromatosis, right ankle surgery 2001 to remove bone spurs and pt had trouble and then had to have fusion in 2012. He has history of arthritis. Pt reports that since surgery 2012, his toes went numb and he never got his sensation back. He has three screws in. Further PMH: HTN, a -fib and on blood thinner, left THR 2008, vericose veins, neck arthritis. If pt turns his head to the left for long enough, he gets tingling near brachial plexus and into shoulder. If he turns his head to the right, he can get paresthesias down to the top of his thumb. Pt reports history of light- headedness and dizziness with turning in the bed that he no longer gets. Pt occ gets cervicogenic headaches. Pt has trouble walking on unstable surfaces and falls to the right. His last fall was in 2019. He is stable on his sailboat. Pt lives on his sailboat. Pt reports arthritic pain 2/10 in his hands, 2/10 in his posterior neck, 1/10 in his SI area and 1/10 in his right ankle. Prior Treatments and Tests PT for right ankle, neck and LB. Pt liked relieving the pain. He likes visuals with exercises. Treatment Goals Patient/Caregiver Goals Find out something to help his balance PT-OP-C Subjective Start: 07/15/20 15:29 Freq: Status: Active Protocol: Document 07/23/20 13:02 MB (Rec: 07/23/20 13:43 MB [id number]) OP-PT Subjective Patient Comments Patient Comments Okay when PT asks pt how he is doing PT-OP-D Balance Start: 07/15/20 15:29 Freq: Status: Active Protocol: Document 07/20/20 13:01 MB (Rec: 07/20/20 14:52 MB [id number]) Balance Tests Other Other Balance Tests Performed Components of FGA performed with bare feet including head turns, walking backwards and walking with eyes shut and pt has no LOB with these tasks. He cannot perform Tandem gait d/t LOB. PT-OP-G Mobility & Gait Start: 07/15/20 15:29 Freq: Status: Active Protocol: Document 07/20/20 13:01 MB (Rec: 07/20/20 14:52 MB [id number]) OP Gait Assessment Gait Gait Assistance Required: Independent Distance (Feet) 100 Able to Maintain Weight Bearing Status Yes During Gait Assistive Devices Assistive Device None Orthotic/Prosthetic Devices or Brace: No Factors Limiting Gait Function Factors Limiting Gait Function Decreased Strength,Limited Range of Motion,Poor Balance Comments Gait Comments Gait in bare feet several reps in the hallway: pt with right foot anomalies that make gait appear to be favoring the right foot and the right foot presents with functional foot drop--decreased push off, rigid ankle and mid foot and hyper extension/whipping type reponse of right knee with final WB phase of gait. Pt reports increased listing to the right or LOB with increased gait distance at home and so 6MWT performed with pt wearing his shoes and socks and he gait trains 1254 feet in 6 minutes, favoring the right foot and no LOB PT-OP-J Posture/Palpation/Skin Start: 07/15/20 15:29 Freq: Status: Active Protocol: Document 07/20/20 13:01 MB (Rec: 07/20/20 14:52 MB [id number]) Posture Evaluation Comments Posture Comments Many postural changes in standing, pt barefoot: left tragus 3 in front of left AC joint, decreased cervical lordosis, Dowager's hump, decreased thoracic kyphosis, elevated shoulders, curvature reversal and left convexity lower thoracic area, decreased lumbar lordosis, skin changes B distal LEs with edema right greater than left LE, left shoulder and iliac crest higher than the right, B knee valgus and B foot anomalies, greater on the right with supinated foot on the right and mildly pronated on the left, right calf is atrophied compared to the left. Pt stands with right foot slightly in front of the left. PT-OP-K Range of Motion Start: 07/15/20 15:29 Freq: Status: Active Protocol: Document 07/20/20 13:01 MB (Rec: 07/20/20 14:52 MB [id number]) Cervical Spine Range of Motion Cervical Spine Active Testing Position Standing Flexion 20 Extension 15 Rotation Left 15 Rotation Right 20 Lateral Flexion Left 10 Lateral Flexion Right 10 Comments Postural changes contribute to cervical ROM loss Ankle and Foot Goniometric Range of Motion Ankle and Foot ROM Limitations Comments B foot changes, greater on the right with pt with very little active eversion and inversion, less than 5 deg each on the right foot. Right ankle DF 5 deg with leg extended in supine. With attempted heel raises in standing, pt can clear right heel x5 with excessive right knee flexion and thrusting weight forward. PT-OP-M Strength Start: 07/15/20 15:29 Freq: Status: Active Protocol: Document 07/20/20 13:01 MB (Rec: 07/20/20 14:52 MB [id number]) Hip Strength Hip Manual Muscle Testing Left Flexion (L2) 5 Normal Abduction 3+ Fair+ Right Flexion (L2) 3+ Fair+ Abduction 4 Good Knee Strength Knee Manual Muscle Testing Left Flexion (S2) 5 Normal Extension (L3) 5 Normal Right Flexion (S2) 5 Normal Extension (L3) 5 Normal Ankle/Foot Strength Ankle and Foot Manual Muscle Testing Left Dorsiflexion (L4) 5 Normal Inversion 4 Good Eversion (S1) 4 Good Comments Pt performs 20 reps heel raises in standing with B hand support against the wall Right Comments MMT is not accurate in setting of ROM losses from old ankle fusion and functional foot drop with gait requiring increased right knee flexion Toe Strength Toe Manual Muscle Testing Left Great Toe Extension 3+ Fair+ Comments Left 5th toe does not extend with the rest of toes when observed Right Great Toe Extension 3+ Fair+ PT-OP-Q Treatments Start: 07/15/20 15:29 Freq: Status: Active Protocol: Document 07/23/20 13:02 MB (Rec: 07/23/20 13:43 MB [id number]) Manual Therapy Treatment Other Other Manual Treatments Lavage right greater than left foot, ankle and calf, gentle mobs B phalanges and movement at mets as feet anatomy allow which is not much. Very stiff mets and tarsals. LEs are not very cool to touch and discoloration is great and he has edema that is pitting B posterior legs and con't with legs just lying flat. He presents with right knee tension PT-OP-T Assessment and Plan Start: 07/15/20 15:29 Freq: Status: Active Protocol: Document 07/23/20 13:02 MB (Rec: 07/23/20 13:43 MB [id number]) Physical Therapy Assessment Rehab Potential Rehabilitation Potential Fair Evaluation Complexity Number of Personal Factors/Comorbidities 1-2 Number of Body Systems Impaired 1-2 Clinical Presentation at Evaluation Evolving Impairments Impairments Balance,Gait,Integument,Pain, Posture,ROM,Sensation,Soft Tissue Mobility,Strength Other Impairments Pt reports numbness on the ball of his left foot. He presents with integumentary changes from hemachromatosis and B LE edema. Other Concerns Fall Risk Yes Goals 5 Assisted Goal (LTG) Pt will perform progressive HEP with I including flexibility, alignment, balance, strengthening and gait activities to improve range of motion, strength and balance by 09/17/20. LTG Duration 8 weeks 4 Lithographing Machine Operator Goal (LTG) Pt will gait train at least 1600 feet in 6 minutes without LOB to improve ability to walk with for exercise by 09/17/20. LTG Duration 8 weeks 3 Assisted Goal (LTG) Pt will present with improved B hip flexion and abduction strength to 5/5 to improve balance and functional strength by 09/17/20. LTG Duration 8 weeks 2 Impairment Reports of falls, listing to the right, unable to perform Tandem gait Lithographing Machine Operator Goal (LTG) Pt will present WNLs on a standardized balance test to decrease fall risk by 09/17/20. LTG Duration 8 weeks 1 Impairment LEF reflects 31.25% impairment Lithographing Machine Operator Goal (LTG) Pt will present with an improved LEF score to reflect no more than 25% impairment to improve functional tasks and balance by 09/17/20. LTG Duration 8 weeks Assessment Summary Assessment Manual assessment and treatment today to assess and improve right greater than left foot and LE tension. This is to help with mobility, balance and gait. See manual treatment comments. Consider measuring pt for compression hose with very limited compression. Physical Therapy Plan Frequency and Duration Frequency of Treatment 2x/Week Duration of Treatment 8 weeks Plan of Care Start Date 07/20/20 Plan of Care End Date 09/20/20 Therapeutic Interventions Therapeutic Interventions Balance Training,Canalithic Repositioning,Coordination Training,Gait Training,Home Exercise Program,Joint Mobilizations,Manual Therapy, Neuromuscular Re-education, Patient/Caregiver Education, Self-Care/Home Management, Sensory Integration,Soft Tissue Mobilization,Taping, Therapeutic Activities, Therapeutic Exercises Modalities Cold Pack/Ice Massage,Hot Packs Next Visit Focus/Plan Next Note Type Treatment Note Next Visit Plan Initiate flexibility exercises and other progression. Measure for compression hose. Consider lymphedema therapist scan/opinion
--- NOTE | 2020-07-28 15:14 | PT.OTN ---
Current Diagnoses Unspecified abnormalities of gait and mobility (07/28/20) Physical Therapy Treatment Note PT-OP-A Visit Information Start: 07/15/20 15:29 Freq: Status: Active Protocol: Document 07/28/20 14:32 MB (Rec: 07/28/20 15:14 MB [id number]) Out-Patient Physical Therapy Visit Information Visit Information Visit Type Treatment Note Visit Start Time 14:32 Visit Stop Time 15:13 Total Visit Minutes 41 Visit Number 3 PT-OP-B Current Condition Start: 07/15/20 15:29 Freq: Status: Active Protocol: Document 07/20/20 13:01 MB (Rec: 07/20/20 13:18 MB [id number]) Current Condition History of Current Condition Onset Date 2015 Current Complaints Balance and inability to walk in a straight line History of Current Condition PMH: increased ferritin from hemochromatosis, right ankle surgery 2001 to remove bone spurs and pt had trouble and then had to have fusion in 2012. He has history of arthritis. Pt reports that since surgery 2012, his toes went numb and he never got his sensation back. He has three screws in. Further PMH: HTN, a -fib and on blood thinner, left THR 2008, vericose veins, neck arthritis. If pt turns his head to the left for long enough, he gets tingling near brachial plexus and into shoulder. If he turns his head to the right, he can get paresthesias down to the top of his thumb. Pt reports history of light- headedness and dizziness with turning in the bed that he no longer gets. Pt occ gets cervicogenic headaches. Pt has trouble walking on unstable surfaces and falls to the right. His last fall was in 2019. He is stable on his sailboat. Pt lives on his sailboat. Pt reports arthritic pain 2/10 in his hands, 2/10 in his posterior neck, 1/10 in his SI area and 1/10 in his right ankle. Prior Treatments and Tests PT for right ankle, neck and LB. Pt liked relieving the pain. He likes visuals with exercises. Treatment Goals Patient/Caregiver Goals Find out something to help his balance PT-OP-C Subjective Start: 07/15/20 15:29 Freq: Status: Active Protocol: Document 07/28/20 14:32 MB (Rec: 07/28/20 15:14 MB [id number]) OP-PT Subjective Patient Comments Patient Comments Pretty good when PT asks pt how he felt after last treatment's manual work PT-OP-D Balance Start: 07/15/20 15:29 Freq: Status: Active Protocol: Document 07/20/20 13:01 MB (Rec: 07/20/20 14:52 MB [id number]) Balance Tests Other Other Balance Tests Performed Components of FGA performed with bare feet including head turns, walking backwards and walking with eyes shut and pt has no LOB with these tasks. He cannot perform Tandem gait d/t LOB. PT-OP-G Mobility & Gait Start: 07/15/20 15:29 Freq: Status: Active Protocol: Document 07/20/20 13:01 MB (Rec: 07/20/20 14:52 MB [id number]) OP Gait Assessment Gait Gait Assistance Required: Independent Distance (Feet) 100 Able to Maintain Weight Bearing Status Yes During Gait Assistive Devices Assistive Device None Orthotic/Prosthetic Devices or Brace: No Factors Limiting Gait Function Factors Limiting Gait Function Decreased Strength,Limited Range of Motion,Poor Balance Comments Gait Comments Gait in bare feet several reps in the hallway: pt with right foot anomalies that make gait appear to be favoring the right foot and the right foot presents with functional foot drop--decreased push off, rigid ankle and mid foot and hyper extension/whipping type reponse of right knee with final WB phase of gait. Pt reports increased listing to the right or LOB with increased gait distance at home and so 6MWT performed with pt wearing his shoes and socks and he gait trains 1254 feet in 6 minutes, favoring the right foot and no LOB PT-OP-J Posture/Palpation/Skin Start: 07/15/20 15:29 Freq: Status: Active Protocol: Document 07/20/20 13:01 MB (Rec: 07/20/20 14:52 MB [id number]) Posture Evaluation Comments Posture Comments Many postural changes in standing, pt barefoot: left tragus 3 in front of left AC joint, decreased cervical lordosis, Dowager's hump, decreased thoracic kyphosis, elevated shoulders, curvature reversal and left convexity lower thoracic area, decreased lumbar lordosis, skin changes B distal LEs with edema right greater than left LE, left shoulder and iliac crest higher than the right, B knee valgus and B foot anomalies, greater on the right with supinated foot on the right and mildly pronated on the left, right calf is atrophied compared to the left. Pt stands with right foot slightly in front of the left. PT-OP-K Range of Motion Start: 07/15/20 15:29 Freq: Status: Active Protocol: Document 07/20/20 13:01 MB (Rec: 07/20/20 14:52 MB [id number]) Cervical Spine Range of Motion Cervical Spine Active Testing Position Standing Flexion 20 Extension 15 Rotation Left 15 Rotation Right 20 Lateral Flexion Left 10 Lateral Flexion Right 10 Comments Postural changes contribute to cervical ROM loss Ankle and Foot Goniometric Range of Motion Ankle and Foot ROM Limitations Comments B foot changes, greater on the right with pt with very little active eversion and inversion, less than 5 deg each on the right foot. Right ankle DF 5 deg with leg extended in supine. With attempted heel raises in standing, pt can clear right heel x5 with excessive right knee flexion and thrusting weight forward. PT-OP-M Strength Start: 07/15/20 15:29 Freq: Status: Active Protocol: Document 07/20/20 13:01 MB (Rec: 07/20/20 14:52 MB [id number]) Hip Strength Hip Manual Muscle Testing Left Flexion (L2) 5 Normal Abduction 3+ Fair+ Right Flexion (L2) 3+ Fair+ Abduction 4 Good Knee Strength Knee Manual Muscle Testing Left Flexion (S2) 5 Normal Extension (L3) 5 Normal Right Flexion (S2) 5 Normal Extension (L3) 5 Normal Ankle/Foot Strength Ankle and Foot Manual Muscle Testing Left Dorsiflexion (L4) 5 Normal Inversion 4 Good Eversion (S1) 4 Good Comments Pt performs 20 reps heel raises in standing with B hand support against the wall Right Comments MMT is not accurate in setting of ROM losses from old ankle fusion and functional foot drop with gait requiring increased right knee flexion Toe Strength Toe Manual Muscle Testing Left Great Toe Extension 3+ Fair+ Comments Left 5th toe does not extend with the rest of toes when observed Right Great Toe Extension 3+ Fair+ PT-OP-Q Treatments Start: 07/15/20 15:29 Freq: Status: Active Protocol: Document 07/28/20 14:32 MB (Rec: 07/28/20 15:14 MB [id number]) Therapeutic Exercises Supine Exercises Rene stretch Side bilateral Comments Abdominal drawing in first, then lower leg, 30 sec hold Hamstring stretch and AP Side bilateral Equipment Used Martial art belt Comments Hook lying with head and neck supported Sitting Exercises AP and toe flexion with band ankle hammock Side bilateral Equipment Used Level 2 band Comments 20 reps slowly Standing Exercises Calf stretching in standing--gastroc and soleus Side bilateral Comments 20 sec hold each B PT-OP-T Assessment and Plan Start: 07/15/20 15:29 Freq: Status: Active Protocol: Document 07/28/20 14:32 MB (Rec: 07/28/20 15:14 MB [id number]) Physical Therapy Assessment Rehab Potential Rehabilitation Potential Fair Evaluation Complexity Number of Personal Factors/Comorbidities 1-2 Number of Body Systems Impaired 1-2 Clinical Presentation at Evaluation Evolving Impairments Impairments Balance,Gait,Integument,Pain, Posture,ROM,Sensation,Soft Tissue Mobility,Strength Other Impairments Pt reports numbness on the ball of his left foot. He presents with integumentary changes from hemachromatosis and B LE edema. Other Concerns Fall Risk Yes Goals 5 Hat Stock Laminating Machine Operator Goal (LTG) Pt will perform progressive HEP with I including flexibility, alignment, balance, strengthening and gait activities to improve range of motion, strength and balance by 09/17/20. LTG Duration 8 weeks 4 [employer] Machine Operator Goal (LTG) Pt will gait train at least 1600 feet in 6 minutes without LOB to improve ability to walk with for exercise by 09/17/20. LTG Duration 8 weeks 3 [employer] Machine Operator Goal (LTG) Pt will present with improved B hip flexion and abduction strength to 5/5 to improve balance and functional strength by 09/17/20. LTG Duration 8 weeks 2 Impairment Reports of falls, listing to the right, unable to perform Tandem gait [facility] Living Goal (LTG) Pt will present WNLs on a standardized balance test to decrease fall risk by 09/17/20. LTG Duration 8 weeks 1 Impairment LEF reflects 31.25% impairment [facility] Goal (LTG) Pt will present with an improved LEF score to reflect no more than 25% impairment to improve functional tasks and balance by 09/17/20. LTG Duration 8 weeks Assessment Summary Assessment Initiated flexibility exercises today and pt to perform at home. Provided handout and education about compression hose. Con't manual work and strengthening and balance progression. Physical Therapy Plan Frequency and Duration Frequency of Treatment 2x/Week Duration of Treatment 8 weeks Plan of Care Start Date 07/20/20 Plan of Care End Date 09/20/20 Therapeutic Interventions Therapeutic Interventions Balance Training,Canalithic Repositioning,Coordination Training,Gait Training,Home Exercise Program,Joint Mobilizations,Manual Therapy, Neuromuscular Re-education, Patient/Caregiver Education, Self-Care/Home Management, Sensory Integration,Soft Tissue Mobilization,Taping, Therapeutic Activities, Therapeutic Exercises Modalities Cold Pack/Ice Massage,Hot Packs Next Visit Focus/Plan Next Note Type Treatment Note Next Visit Plan Consider lymphedema therapist scan/opinion. Progress strengthening and balance exercises.
--- NOTE | 2020-07-30 15:15 | PT.OTN ---
Current Diagnoses Unspecified abnormalities of gait and mobility (07/30/20) Physical Therapy Treatment Note PT-OP-A Visit Information Start: 07/15/20 15:29 Freq: Status: Active Protocol: Document 07/30/20 14:31 MB (Rec: 07/30/20 15:13 MB [id number]) Out-Patient Physical Therapy Visit Information Visit Information Visit Type Treatment Note Visit Start Time 14:31 Visit Stop Time 15:15 Total Visit Minutes 44 Visit Number 4 PT-OP-B Current Condition Start: 07/15/20 15:29 Freq: Status: Active Protocol: Document 07/20/20 13:01 MB (Rec: 07/20/20 13:18 MB [id number]) Current Condition History of Current Condition Onset Date 2015 Current Complaints Balance and inability to walk in a straight line History of Current Condition PMH: increased ferritin from hemochromatosis, right ankle surgery 2001 to remove bone spurs and pt had trouble and then had to have fusion in 2012. He has history of arthritis. Pt reports that since surgery 2012, his toes went numb and he never got his sensation back. He has three screws in. Further PMH: HTN, a -fib and on blood thinner, left THR 2008, vericose veins, neck arthritis. If pt turns his head to the left for long enough, he gets tingling near brachial plexus and into shoulder. If he turns his head to the right, he can get paresthesias down to the top of his thumb. Pt reports history of light- headedness and dizziness with turning in the bed that he no longer gets. Pt occ gets cervicogenic headaches. Pt has trouble walking on unstable surfaces and falls to the right. His last fall was in 2019. He is stable on his sailboat. Pt lives on his sailboat. Pt reports arthritic pain 2/10 in his hands, 2/10 in his posterior neck, 1/10 in his SI area and 1/10 in his right ankle. Prior Treatments and Tests PT for right ankle, neck and LB. Pt liked relieving the pain. He likes visuals with exercises. Treatment Goals Patient/Caregiver Goals Find out something to help his balance PT-OP-C Subjective Start: 07/15/20 15:29 Freq: Status: Active Protocol: Document 07/30/20 14:31 MB (Rec: 07/30/20 15:13 MB [id number]) OP-PT Subjective Patient Comments Patient Comments Not too good. Pt reports left neck pain PT-OP-D Balance Start: 07/15/20 15:29 Freq: Status: Active Protocol: Document 07/20/20 13:01 MB (Rec: 07/20/20 14:52 MB [id number]) Balance Tests Other Other Balance Tests Performed Components of FGA performed with bare feet including head turns, walking backwards and walking with eyes shut and pt has no LOB with these tasks. He cannot perform Tandem gait d/t LOB. PT-OP-G Mobility & Gait Start: 07/15/20 15:29 Freq: Status: Active Protocol: Document 07/20/20 13:01 MB (Rec: 07/20/20 14:52 MB [id number]) OP Gait Assessment Gait Gait Assistance Required: Independent Distance (Feet) 100 Able to Maintain Weight Bearing Status Yes During Gait Assistive Devices Assistive Device None Orthotic/Prosthetic Devices or Brace: No Factors Limiting Gait Function Factors Limiting Gait Function Decreased Strength,Limited Range of Motion,Poor Balance Comments Gait Comments Gait in bare feet several reps in the hallway: pt with right foot anomalies that make gait appear to be favoring the right foot and the right foot presents with functional foot drop--decreased push off, rigid ankle and mid foot and hyper extension/whipping type reponse of right knee with final WB phase of gait. Pt reports increased listing to the right or LOB with increased gait distance at home and so 6MWT performed with pt wearing his shoes and socks and he gait trains 1254 feet in 6 minutes, favoring the right foot and no LOB PT-OP-J Posture/Palpation/Skin Start: 07/15/20 15:29 Freq: Status: Active Protocol: Document 07/20/20 13:01 MB (Rec: 07/20/20 14:52 MB [id number]) Posture Evaluation Comments Posture Comments Many postural changes in standing, pt barefoot: left tragus 3 in front of left AC joint, decreased cervical lordosis, Dowager's hump, decreased thoracic kyphosis, elevated shoulders, curvature reversal and left convexity lower thoracic area, decreased lumbar lordosis, skin changes B distal LEs with edema right greater than left LE, left shoulder and iliac crest higher than the right, B knee valgus and B foot anomalies, greater on the right with supinated foot on the right and mildly pronated on the left, right calf is atrophied compared to the left. Pt stands with right foot slightly in front of the left. PT-OP-K Range of Motion Start: 07/15/20 15:29 Freq: Status: Active Protocol: Document 07/20/20 13:01 MB (Rec: 07/20/20 14:52 MB [id number]) Cervical Spine Range of Motion Cervical Spine Active Testing Position Standing Flexion 20 Extension 15 Rotation Left 15 Rotation Right 20 Lateral Flexion Left 10 Lateral Flexion Right 10 Comments Postural changes contribute to cervical ROM loss Ankle and Foot Goniometric Range of Motion Ankle and Foot ROM Limitations Comments B foot changes, greater on the right with pt with very little active eversion and inversion, less than 5 deg each on the right foot. Right ankle DF 5 deg with leg extended in supine. With attempted heel raises in standing, pt can clear right heel x5 with excessive right knee flexion and thrusting weight forward. PT-OP-M Strength Start: 07/15/20 15:29 Freq: Status: Active Protocol: Document 07/20/20 13:01 MB (Rec: 07/20/20 14:52 MB [id number]) Hip Strength Hip Manual Muscle Testing Left Flexion (L2) 5 Normal Abduction 3+ Fair+ Right Flexion (L2) 3+ Fair+ Abduction 4 Good Knee Strength Knee Manual Muscle Testing Left Flexion (S2) 5 Normal Extension (L3) 5 Normal Right Flexion (S2) 5 Normal Extension (L3) 5 Normal Ankle/Foot Strength Ankle and Foot Manual Muscle Testing Left Dorsiflexion (L4) 5 Normal Inversion 4 Good Eversion (S1) 4 Good Comments Pt performs 20 reps heel raises in standing with B hand support against the wall Right Comments MMT is not accurate in setting of ROM losses from old ankle fusion and functional foot drop with gait requiring increased right knee flexion Toe Strength Toe Manual Muscle Testing Left Great Toe Extension 3+ Fair+ Comments Left 5th toe does not extend with the rest of toes when observed Right Great Toe Extension 3+ Fair+ PT-OP-Q Treatments Start: 07/15/20 15:29 Freq: Status: Active Protocol: Document 07/30/20 14:31 MB (Rec: 07/30/20 15:13 MB [id number]) Manual Therapy Treatment Other Other Manual Treatments Pt prone: grade III-IV PA thoracic mobs, scapular mobs, STM and positional release B upper traps and levator, suboccipitals, rib recoil Pt supine: MWM B upper traps with PT providing TrP pressure and pt elevating shoulders, STM B upper traps and levator in supine and suboccipital release PT-OP-T Assessment and Plan Start: 07/15/20 15:29 Freq: Status: Active Protocol: Document 07/30/20 14:31 MB (Rec: 07/30/20 15:13 MB [id number]) Physical Therapy Assessment Rehab Potential Rehabilitation Potential Fair Evaluation Complexity Number of Personal Factors/Comorbidities 1-2 Number of Body Systems Impaired 1-2 Clinical Presentation at Evaluation Evolving Impairments Impairments Balance,Gait,Integument,Pain, Posture,ROM,Sensation,Soft Tissue Mobility,Strength Other Impairments Pt reports numbness on the ball of his left foot. He presents with integumentary changes from hemachromatosis and B LE edema. Other Concerns Fall Risk Yes Goals 5 Nursing Home Goal (LTG) Pt will perform progressive HEP with I including flexibility, alignment, balance, strengthening and gait activities to improve range of motion, strength and balance by 09/17/20. LTG Duration 8 weeks 4 Optometric Coordinator Goal (LTG) Pt will gait train at least 1600 feet in 6 minutes without LOB to improve ability to walk with for exercise by 09/17/20. LTG Duration 8 weeks 3 Nursing Home Goal (LTG) Pt will present with improved B hip flexion and abduction strength to 5/5 to improve balance and functional strength by 09/17/20. LTG Duration 8 weeks 2 Impairment Reports of falls, listing to the right, unable to perform Tandem gait Nursing Home Goal (LTG) Pt will present WNLs on a standardized balance test to decrease fall risk by 09/17/20. LTG Duration 8 weeks 1 Impairment LEF reflects 31.25% impairment Optometric Coordinator Goal (LTG) Pt will present with an improved LEF score to reflect no more than 25% impairment to improve functional tasks and balance by 09/17/20. LTG Duration 8 weeks Assessment Summary Assessment Manual work to assess and address cervical limitations today in order to help with neck rotation and balance. Con 't to address. Physical Therapy Plan Frequency and Duration Frequency of Treatment 2x/Week Duration of Treatment 8 weeks Plan of Care Start Date 07/20/20 Plan of Care End Date 09/20/20 Therapeutic Interventions Therapeutic Interventions Balance Training,Canalithic Repositioning,Coordination Training,Gait Training,Home Exercise Program,Joint Mobilizations,Manual Therapy, Neuromuscular Re-education, Patient/Caregiver Education, Self-Care/Home Management, Sensory Integration,Soft Tissue Mobilization,Taping, Therapeutic Activities, Therapeutic Exercises Modalities Cold Pack/Ice Massage,Hot Packs Next Visit Focus/Plan Next Note Type Treatment Note Next Visit Plan Consider lymphedema therapist scan/opinion. Progress strengthening and balance exercises. Con't to work on cervical spine.
--- NOTE | 2020-08-04 09:45 | PT.OTN ---
Current Diagnoses Unspecified abnormalities of gait and mobility (08/04/20) Physical Therapy Treatment Note PT-OP-A Visit Information Start: 07/15/20 15:29 Freq: Status: Active Protocol: Document 08/04/20 09:03 MB (Rec: 08/04/20 09:33 MB [id number]) Out-Patient Physical Therapy Visit Information Visit Information Visit Type Treatment Note Visit Start Time 09:03 Visit Stop Time 09:45 Total Visit Minutes 42 Visit Number 5 PT-OP-B Current Condition Start: 07/15/20 15:29 Freq: Status: Active Protocol: Document 07/20/20 13:01 MB (Rec: 07/20/20 13:18 MB [id number]) Current Condition History of Current Condition Onset Date 2015 Current Complaints Balance and inability to walk in a straight line History of Current Condition PMH: increased ferritin from hemochromatosis, right ankle surgery 2001 to remove bone spurs and pt had trouble and then had to have fusion in 2012. He has history of arthritis. Pt reports that since surgery 2012, his toes went numb and he never got his sensation back. He has three screws in. Further PMH: HTN, a -fib and on blood thinner, left THR 2008, vericose veins, neck arthritis. If pt turns his head to the left for long enough, he gets tingling near brachial plexus and into shoulder. If he turns his head to the right, he can get paresthesias down to the top of his thumb. Pt reports history of light- headedness and dizziness with turning in the bed that he no longer gets. Pt occ gets cervicogenic headaches. Pt has trouble walking on unstable surfaces and falls to the right. His last fall was in 2019. He is stable on his sailboat. Pt lives on his sailboat. Pt reports arthritic pain 2/10 in his hands, 2/10 in his posterior neck, 1/10 in his SI area and 1/10 in his right ankle. Prior Treatments and Tests PT for right ankle, neck and LB. Pt liked relieving the pain. He likes visuals with exercises. Treatment Goals Patient/Caregiver Goals Find out something to help his balance PT-OP-C Subjective Start: 07/15/20 15:29 Freq: Status: Active Protocol: Document 08/04/20 09:03 MB (Rec: 08/04/20 09:33 MB [id number]) OP-PT Subjective Patient Comments Patient Comments The exercises are going well. Pt ordered closed toe hose. PT-OP-D Balance Start: 07/15/20 15:29 Freq: Status: Active Protocol: Document 07/20/20 13:01 MB (Rec: 07/20/20 14:52 MB [id number]) Balance Tests Other Other Balance Tests Performed Components of FGA performed with bare feet including head turns, walking backwards and walking with eyes shut and pt has no LOB with these tasks. He cannot perform Tandem gait d/t LOB. PT-OP-G Mobility & Gait Start: 07/15/20 15:29 Freq: Status: Active Protocol: Document 07/20/20 13:01 MB (Rec: 07/20/20 14:52 MB [id number]) OP Gait Assessment Gait Gait Assistance Required: Independent Distance (Feet) 100 Able to Maintain Weight Bearing Status Yes During Gait Assistive Devices Assistive Device None Orthotic/Prosthetic Devices or Brace: No Factors Limiting Gait Function Factors Limiting Gait Function Decreased Strength,Limited Range of Motion,Poor Balance Comments Gait Comments Gait in bare feet several reps in the hallway: pt with right foot anomalies that make gait appear to be favoring the right foot and the right foot presents with functional foot drop--decreased push off, rigid ankle and mid foot and hyper extension/whipping type reponse of right knee with final WB phase of gait. Pt reports increased listing to the right or LOB with increased gait distance at home and so 6MWT performed with pt wearing his shoes and socks and he gait trains 1254 feet in 6 minutes, favoring the right foot and no LOB PT-OP-J Posture/Palpation/Skin Start: 07/15/20 15:29 Freq: Status: Active Protocol: Document 07/20/20 13:01 MB (Rec: 07/20/20 14:52 MB [id number]) Posture Evaluation Comments Posture Comments Many postural changes in standing, pt barefoot: left tragus 3 in front of left AC joint, decreased cervical lordosis, Dowager's hump, decreased thoracic kyphosis, elevated shoulders, curvature reversal and left convexity lower thoracic area, decreased lumbar lordosis, skin changes B distal LEs with edema right greater than left LE, left shoulder and iliac crest higher than the right, B knee valgus and B foot anomalies, greater on the right with supinated foot on the right and mildly pronated on the left, right calf is atrophied compared to the left. Pt stands with right foot slightly in front of the left. PT-OP-K Range of Motion Start: 07/15/20 15:29 Freq: Status: Active Protocol: Document 07/20/20 13:01 MB (Rec: 07/20/20 14:52 MB [id number]) Cervical Spine Range of Motion Cervical Spine Active Testing Position Standing Flexion 20 Extension 15 Rotation Left 15 Rotation Right 20 Lateral Flexion Left 10 Lateral Flexion Right 10 Comments Postural changes contribute to cervical ROM loss Ankle and Foot Goniometric Range of Motion Ankle and Foot ROM Limitations Comments B foot changes, greater on the right with pt with very little active eversion and inversion, less than 5 deg each on the right foot. Right ankle DF 5 deg with leg extended in supine. With attempted heel raises in standing, pt can clear right heel x5 with excessive right knee flexion and thrusting weight forward. PT-OP-M Strength Start: 07/15/20 15:29 Freq: Status: Active Protocol: Document 07/20/20 13:01 MB (Rec: 07/20/20 14:52 MB [id number]) Hip Strength Hip Manual Muscle Testing Left Flexion (L2) 5 Normal Abduction 3+ Fair+ Right Flexion (L2) 3+ Fair+ Abduction 4 Good Knee Strength Knee Manual Muscle Testing Left Flexion (S2) 5 Normal Extension (L3) 5 Normal Right Flexion (S2) 5 Normal Extension (L3) 5 Normal Ankle/Foot Strength Ankle and Foot Manual Muscle Testing Left Dorsiflexion (L4) 5 Normal Inversion 4 Good Eversion (S1) 4 Good Comments Pt performs 20 reps heel raises in standing with B hand support against the wall Right Comments MMT is not accurate in setting of ROM losses from old ankle fusion and functional foot drop with gait requiring increased right knee flexion Toe Strength Toe Manual Muscle Testing Left Great Toe Extension 3+ Fair+ Comments Left 5th toe does not extend with the rest of toes when observed Right Great Toe Extension 3+ Fair+ PT-OP-Q Treatments Start: 07/15/20 15:29 Freq: Status: Active Protocol: Document 08/04/20 09:03 MB (Rec: 08/04/20 09:33 MB [id number]) Therapeutic Exercises Sitting Exercises PF STM Comments Sitting with ball under foot and massage over PF (plantar fascia), PT demo Calf MWM with racquet ball Side bilateral Comments TrP pressure with ball and active DF/PF Hamstring MWM Side bilateral Comments TrP pressure with racquet ball and pt extending legs Upper traps MWM Side left Comments TrP pressure and pt performing active cervical rotation away Standing Exercises Glute STM Side bilateral Comments Standing against wall with TrP STM with racquet ball Infraspinatus MWM with racquet ball Side left Comments TrP pressure with racquet ball and pt performing active ER and IR Intrascapular massage with racquet ball Side left Comments Pt performs with cues Manual Therapy Treatment Other Other Manual Treatments B plantar fascia and plantar flexor and fibularis longus STM, grade II-III phalange and metatarsal mobs to joint tolerance PT-OP-T Assessment and Plan Start: 07/15/20 15:29 Freq: Status: Active Protocol: Document 08/04/20 09:03 MB (Rec: 08/04/20 09:33 MB [id number]) Physical Therapy Assessment Rehab Potential Rehabilitation Potential Fair Evaluation Complexity Number of Personal Factors/Comorbidities 1-2 Number of Body Systems Impaired 1-2 Clinical Presentation at Evaluation Evolving Impairments Impairments Balance,Gait,Integument,Pain, Posture,ROM,Sensation,Soft Tissue Mobility,Strength Other Impairments Pt reports numbness on the ball of his left foot. He presents with integumentary changes from hemachromatosis and B LE edema. Other Concerns Fall Risk Yes Goals 5 Field Logistics Coordinator Goal (LTG) Pt will perform progressive HEP with I including flexibility, alignment, balance, strengthening and gait activities to improve range of motion, strength and balance by 09/17/20. LTG Duration 8 weeks 4 [facility] Goal (LTG) Pt will gait train at least 1600 feet in 6 minutes without LOB to improve ability to walk with for exercise by 09/17/20. LTG Duration 8 weeks 3 [facility] Goal (LTG) Pt will present with improved B hip flexion and abduction strength to 11/17 to improve balance and functional strength by 09/17/20. LTG Duration 8 weeks 2 Impairment Reports of falls, listing to the right, unable to perform Tandem gait [facility] Goal (LTG) Pt will present WNLs on a standardized balance test to decrease fall risk by 09/17/20. LTG Duration 8 weeks 1 Impairment LEF reflects 31.25% impairment Field Logistics Coordinator Goal (LTG) Pt will present with an improved LEF score to reflect no more than 25% impairment to improve functional tasks and balance by 09/17/20. LTG Duration 8 weeks Assessment Summary Assessment Initiated self-myofascial mobility today with racquet ball and MWM, ongoing manual work. See progression plans below. Physical Therapy Plan Frequency and Duration Frequency of Treatment 2x/Week Duration of Treatment 8 weeks Plan of Care Start Date 07/20/20 Plan of Care End Date 09/20/20 Therapeutic Interventions Therapeutic Interventions Balance Training,Canalithic Repositioning,Coordination Training,Gait Training,Home Exercise Program,Joint Mobilizations,Manual Therapy, Neuromuscular Re-education, Patient/Caregiver Education, Self-Care/Home Management, Sensory Integration,Soft Tissue Mobilization,Taping, Therapeutic Activities, Therapeutic Exercises Modalities Cold Pack/Ice Massage,Hot Packs Next Visit Focus/Plan Next Note Type Treatment Note Next Visit Plan Progress strengthening and balance exercises. Con't to work on cervical spine.
--- NOTE | 2020-08-06 14:32 | PT.OTN ---
Current Diagnoses Unspecified abnormalities of gait and mobility (08/06/20) Physical Therapy Treatment Note PT-OP-A Visit Information Start: 07/15/20 15:29 Freq: Status: Active Protocol: Document 08/06/20 13:52 MB (Rec: 08/06/20 14:31 MB [id number]) Out-Patient Physical Therapy Visit Information Visit Information Visit Type Treatment Note Visit Start Time 13:52 Visit Stop Time 14:30 Total Visit Minutes 38 Visit Number 6 PT-OP-B Current Condition Start: 07/15/20 15:29 Freq: Status: Active Protocol: Document 07/20/20 13:01 MB (Rec: 07/20/20 13:18 MB [id number]) Current Condition History of Current Condition Onset Date 2015 Current Complaints Balance and inability to walk in a straight line History of Current Condition PMH: increased ferritin from hemochromatosis, right ankle surgery 2001 to remove bone spurs and pt had trouble and then had to have fusion in 2012. He has history of arthritis. Pt reports that since surgery 2012, his toes went numb and he never got his sensation back. He has three screws in. Further PMH: HTN, a -fib and on blood thinner, left THR 2008, vericose veins, neck arthritis. If pt turns his head to the left for long enough, he gets tingling near brachial plexus and into shoulder. If he turns his head to the right, he can get paresthesias down to the top of his thumb. Pt reports history of light- headedness and dizziness with turning in the bed that he no longer gets. Pt occ gets cervicogenic headaches. Pt has trouble walking on unstable surfaces and falls to the right. His last fall was in 2019. He is stable on his sailboat. Pt lives on his sailboat. Pt reports arthritic pain 2/10 in his hands, 2/10 in his posterior neck, 1/10 in his SI area and 1/10 in his right ankle. Prior Treatments and Tests PT for right ankle, neck and LB. Pt liked relieving the pain. He likes visuals with exercises. Treatment Goals Patient/Caregiver Goals Find out something to help his balance PT-OP-C Subjective Start: 07/15/20 15:29 Freq: Status: Active Protocol: Document 08/06/20 13:52 MB (Rec: 08/06/20 14:31 MB [id number]) OP-PT Subjective Patient Comments Patient Comments Doing pretty good. I got my first COVID shot today. Pt has been doing racquet ball massages PT-OP-D Balance Start: 07/15/20 15:29 Freq: Status: Active Protocol: Document 07/20/20 13:01 MB (Rec: 07/20/20 14:52 MB [id number]) Balance Tests Other Other Balance Tests Performed Components of FGA performed with bare feet including head turns, walking backwards and walking with eyes shut and pt has no LOB with these tasks. He cannot perform Tandem gait d/t LOB. PT-OP-G Mobility & Gait Start: 07/15/20 15:29 Freq: Status: Active Protocol: Document 07/20/20 13:01 MB (Rec: 07/20/20 14:52 MB [id number]) OP Gait Assessment Gait Gait Assistance Required: Independent Distance (Feet) 100 Able to Maintain Weight Bearing Status Yes During Gait Assistive Devices Assistive Device None Orthotic/Prosthetic Devices or Brace: No Factors Limiting Gait Function Factors Limiting Gait Function Decreased Strength,Limited Range of Motion,Poor Balance Comments Gait Comments Gait in bare feet several reps in the hallway: pt with right foot anomalies that make gait appear to be favoring the right foot and the right foot presents with functional foot drop--decreased push off, rigid ankle and mid foot and hyper extension/whipping type reponse of right knee with final WB phase of gait. Pt reports increased listing to the right or LOB with increased gait distance at home and so 6MWT performed with pt wearing his shoes and socks and he gait trains 1254 feet in 6 minutes, favoring the right foot and no LOB PT-OP-J Posture/Palpation/Skin Start: 07/15/20 15:29 Freq: Status: Active Protocol: Document 07/20/20 13:01 MB (Rec: 07/20/20 14:52 MB [id number]) Posture Evaluation Comments Posture Comments Many postural changes in standing, pt barefoot: left tragus 3 in front of left AC joint, decreased cervical lordosis, Dowager's hump, decreased thoracic kyphosis, elevated shoulders, curvature reversal and left convexity lower thoracic area, decreased lumbar lordosis, skin changes B distal LEs with edema right greater than left LE, left shoulder and iliac crest higher than the right, B knee valgus and B foot anomalies, greater on the right with supinated foot on the right and mildly pronated on the left, right calf is atrophied compared to the left. Pt stands with right foot slightly in front of the left. PT-OP-K Range of Motion Start: 07/15/20 15:29 Freq: Status: Active Protocol: Document 07/20/20 13:01 MB (Rec: 07/20/20 14:52 MB [id number]) Cervical Spine Range of Motion Cervical Spine Active Testing Position Standing Flexion 20 Extension 15 Rotation Left 15 Rotation Right 20 Lateral Flexion Left 10 Lateral Flexion Right 10 Comments Postural changes contribute to cervical ROM loss Ankle and Foot Goniometric Range of Motion Ankle and Foot ROM Limitations Comments B foot changes, greater on the right with pt with very little active eversion and inversion, less than 5 deg each on the right foot. Right ankle DF 5 deg with leg extended in supine. With attempted heel raises in standing, pt can clear right heel x5 with excessive right knee flexion and thrusting weight forward. PT-OP-M Strength Start: 07/15/20 15:29 Freq: Status: Active Protocol: Document 07/20/20 13:01 MB (Rec: 07/20/20 14:52 MB [id number]) Hip Strength Hip Manual Muscle Testing Left Flexion (L2) 5 Normal Abduction 3+ Fair+ Right Flexion (L2) 3+ Fair+ Abduction 4 Good Knee Strength Knee Manual Muscle Testing Left Flexion (S2) 5 Normal Extension (L3) 5 Normal Right Flexion (S2) 5 Normal Extension (L3) 5 Normal Ankle/Foot Strength Ankle and Foot Manual Muscle Testing Left Dorsiflexion (L4) 5 Normal Inversion 4 Good Eversion (S1) 4 Good Comments Pt performs 20 reps heel raises in standing with B hand support against the wall Right Comments MMT is not accurate in setting of ROM losses from old ankle fusion and functional foot drop with gait requiring increased right knee flexion Toe Strength Toe Manual Muscle Testing Left Great Toe Extension 3+ Fair+ Comments Left 5th toe does not extend with the rest of toes when observed Right Great Toe Extension 3+ Fair+ PT-OP-Q Treatments Start: 07/15/20 15:29 Freq: Status: Active Protocol: Document 08/06/20 13:52 MB (Rec: 08/06/20 14:31 MB [id number]) Therapeutic Exercises Standing Exercises Tandem standing Comments In the corner: right foot behind partial tandem and left full, shoes on Forward, backward and side stepping with band Side bilateral Comments All directions, several reps, level 2 then level 1 band Manual Therapy Treatment Other Other Manual Treatments Pt prone: B scapular mobs, thoracic PA mobs with rib recoil, right upper traps release PT-OP-T Assessment and Plan Start: 07/15/20 15:29 Freq: Status: Active Protocol: Document 08/06/20 13:52 MB (Rec: 08/06/20 14:31 MB [id number]) Physical Therapy Assessment Rehab Potential Rehabilitation Potential Fair Evaluation Complexity Number of Personal Factors/Comorbidities 1-2 Number of Body Systems Impaired 1-2 Clinical Presentation at Evaluation Evolving Impairments Impairments Balance,Gait,Integument,Pain, Posture,ROM,Sensation,Soft Tissue Mobility,Strength Other Impairments Pt reports numbness on the ball of his left foot. He presents with integumentary changes from hemachromatosis and B LE edema. Other Concerns Fall Risk Yes Goals 5 Jail Goal (LTG) Pt will perform progressive HEP with I including flexibility, alignment, balance, strengthening and gait activities to improve range of motion, strength and balance by 09/17/20. 08/06/20: Pt has been performing HEP exercises: racquet ball massages, foot hammock with level 3 & 4 bands , calf stretches, hamstring stretch, brice stretch, backwards and side stepping with band, Tandem standing in corner, partial when right foot behind LTG Duration 8 weeks 4 Code Enforcement Inspector Goal (LTG) Pt will gait train at least 1600 feet in 6 minutes without LOB to improve ability to walk with for exercise by 09/17/20. LTG Duration 8 weeks 3 Jail Goal (LTG) Pt will present with improved B hip flexion and abduction strength to / to improve balance and functional strength by 09/17/20. LTG Duration 8 weeks 2 Impairment Reports of falls, listing to the right, unable to perform Tandem gait Jail Goal (LTG) Pt will present WNLs on a standardized balance test to decrease fall risk by 09/17/20. LTG Duration 8 weeks 1 Impairment LEF reflects 31.25% impairment Code Enforcement Inspector Goal (LTG) Pt will present with an improved LEF score to reflect no more than 25% impairment to improve functional tasks and balance by 09/17/20. LTG Duration 8 weeks Assessment Summary Assessment Progressed balance exercises today and LE strengthening, con't ankle, intrascapular and core strengthening and balance progression. Physical Therapy Plan Frequency and Duration Frequency of Treatment 2x/Week Duration of Treatment 8 weeks Plan of Care Start Date 07/20/20 Plan of Care End Date 09/20/20 Therapeutic Interventions Therapeutic Interventions Balance Training,Canalithic Repositioning,Coordination Training,Gait Training,Home Exercise Program,Joint Mobilizations,Manual Therapy, Neuromuscular Re-education, Patient/Caregiver Education, Self-Care/Home Management, Sensory Integration,Soft Tissue Mobilization,Taping, Therapeutic Activities, Therapeutic Exercises Modalities Cold Pack/Ice Massage,Hot Packs Next Visit Focus/Plan Next Note Type Treatment Note Next Visit Plan Progress strengthening and balance exercises. Consider heel raises, intrascapular, shoulder and core strengthening. Con't to work on cervical spine.
--- NOTE | 2020-08-09 10:30 | PT.OTN ---
Current Diagnoses Unspecified abnormalities of gait and mobility (08/09/20) Physical Therapy Treatment Note PT-OP-A Visit Information Start: 07/15/20 15:29 Freq: Status: Active Protocol: Document 08/09/20 09:45 SP (Rec: 08/09/20 12:51 SP [id number]) Out-Patient Physical Therapy Visit Information Visit Information Visit Type Treatment Note Visit Note CASEY Mccoy attended 1/2 tx and assisted with ed and support as needed. Visit Start Time 09:45 Visit Stop Time 10:30 Total Visit Minutes 45 Visit Number 7 Number of UPHOLSTERY BUNDLER Visits 1 PT-OP-B Current Condition Start: 07/15/20 15:29 Freq: Status: Active Protocol: Document 07/20/20 13:01 MB (Rec: 07/20/20 13:18 MB [id number]) Current Condition History of Current Condition Onset Date 2015 Current Complaints Balance and inability to walk in a straight line History of Current Condition PMH: increased ferritin from hemochromatosis, right ankle surgery 2001 to remove bone spurs and pt had trouble and then had to have fusion in 2012. He has history of arthritis. Pt reports that since surgery 2012, his toes went numb and he never got his sensation back. He has three screws in. Further PMH: HTN, a -fib and on blood thinner, left THR 2008, vericose veins, neck arthritis. If pt turns his head to the left for long enough, he gets tingling near brachial plexus and into shoulder. If he turns his head to the right, he can get paresthesias down to the top of his thumb. Pt reports history of light- headedness and dizziness with turning in the bed that he no longer gets. Pt occ gets cervicogenic headaches. Pt has trouble walking on unstable surfaces and falls to the right. His last fall was in 2019. He is stable on his sailboat. Pt lives on his sailboat. Pt reports arthritic pain 2/10 in his hands, 2/10 in his posterior neck, 1/10 in his SI area and 1/10 in his right ankle. Prior Treatments and Tests PT for right ankle, neck and LB. Pt liked relieving the pain. He likes visuals with exercises. Treatment Goals Patient/Caregiver Goals Find out something to help his balance PT-OP-C Subjective Start: 07/15/20 15:29 Freq: Status: Active Protocol: Document 08/09/20 09:45 SP (Rec: 08/09/20 12:51 SP [id number]) OP-PT Subjective Patient Comments Patient Comments Pt reported compliant with HEP exercises, no questions/ concerns. Patient Reported Progress Improving PT-OP-D Balance Start: 07/15/20 15:29 Freq: Status: Active Protocol: Document 07/20/20 13:01 MB (Rec: 07/20/20 14:52 MB [id number]) Balance Tests Other Other Balance Tests Performed Components of FGA performed with bare feet including head turns, walking backwards and walking with eyes shut and pt has no LOB with these tasks. He cannot perform Tandem gait d/t LOB. PT-OP-G Mobility & Gait Start: 07/15/20 15:29 Freq: Status: Active Protocol: Document 07/20/20 13:01 MB (Rec: 07/20/20 14:52 MB [id number]) OP Gait Assessment Gait Gait Assistance Required: Independent Distance (Feet) 100 Able to Maintain Weight Bearing Status Yes During Gait Assistive Devices Assistive Device None Orthotic/Prosthetic Devices or Brace: No Factors Limiting Gait Function Factors Limiting Gait Function Decreased Strength,Limited Range of Motion,Poor Balance Comments Gait Comments Gait in bare feet several reps in the hallway: pt with right foot anomalies that make gait appear to be favoring the right foot and the right foot presents with functional foot drop--decreased push off, rigid ankle and mid foot and hyper extension/whipping type reponse of right knee with final WB phase of gait. Pt reports increased listing to the right or LOB with increased gait distance at home and so 6MWT performed with pt wearing his shoes and socks and he gait trains 1254 feet in 6 minutes, favoring the right foot and no LOB PT-OP-J Posture/Palpation/Skin Start: 07/15/20 15:29 Freq: Status: Active Protocol: Document 07/20/20 13:01 MB (Rec: 07/20/20 14:52 MB [id number]) Posture Evaluation Comments Posture Comments Many postural changes in standing, pt barefoot: left tragus 3 in front of left AC joint, decreased cervical lordosis, Dowager's hump, decreased thoracic kyphosis, elevated shoulders, curvature reversal and left convexity lower thoracic area, decreased lumbar lordosis, skin changes B distal LEs with edema right greater than left LE, left shoulder and iliac crest higher than the right, B knee valgus and B foot anomalies, greater on the right with supinated foot on the right and mildly pronated on the left, right calf is atrophied compared to the left. Pt stands with right foot slightly in front of the left. PT-OP-K Range of Motion Start: 07/15/20 15:29 Freq: Status: Active Protocol: Document 07/20/20 13:01 MB (Rec: 07/20/20 14:52 MB [id number]) Cervical Spine Range of Motion Cervical Spine Active Testing Position Standing Flexion 20 Extension 15 Rotation Left 15 Rotation Right 20 Lateral Flexion Left 10 Lateral Flexion Right 10 Comments Postural changes contribute to cervical ROM loss Ankle and Foot Goniometric Range of Motion Ankle and Foot ROM Limitations Comments B foot changes, greater on the right with pt with very little active eversion and inversion, less than 5 deg each on the right foot. Right ankle DF 5 deg with leg extended in supine. With attempted heel raises in standing, pt can clear right heel x5 with excessive right knee flexion and thrusting weight forward. PT-OP-M Strength Start: 07/15/20 15:29 Freq: Status: Active Protocol: Document 07/20/20 13:01 MB (Rec: 07/20/20 14:52 MB [id number]) Hip Strength Hip Manual Muscle Testing Left Flexion (L2) 5 Normal Abduction 3+ Fair+ Right Flexion (L2) 3+ Fair+ Abduction 4 Good Knee Strength Knee Manual Muscle Testing Left Flexion (S2) 5 Normal Extension (L3) 5 Normal Right Flexion (S2) 5 Normal Extension (L3) 5 Normal Ankle/Foot Strength Ankle and Foot Manual Muscle Testing Left Dorsiflexion (L4) 5 Normal Inversion 4 Good Eversion (S1) 4 Good Comments Pt performs 20 reps heel raises in standing with B hand support against the wall Right Comments MMT is not accurate in setting of ROM losses from old ankle fusion and functional foot drop with gait requiring increased right knee flexion Toe Strength Toe Manual Muscle Testing Left Great Toe Extension 3+ Fair+ Comments Left 5th toe does not extend with the rest of toes when observed Right Great Toe Extension 3+ Fair+ PT-OP-Q Treatments Start: 07/15/20 15:29 Freq: Status: Active Protocol: Document 08/09/20 09:45 SP (Rec: 08/09/20 12:51 SP [id number]) Therapeutic Exercises Sitting Exercises pirformis stretch Sitting Exercise Name w/ EV/IV Side bilateral Reps/Minutes 30 x2 ankle ev/iv/pf/ df TB Sitting Exercise Name add HEP Side right Reps/Minutes x10 each direction Comments cued slow allowable range foot on floor AP and toe flexion with band ankle hammock Sitting Exercise Name HEP review Side bilateral Equipment Used Level 2 band Comments 10 reps slowly Standing Exercises sit<> stands Standing Exercise Name add HEP Equipment Used 20 raised table>18 chair Reps/Minutes x10 total Comments cued hip hinge with glut facilitation knees apart and knees behind with toe SLS Side bilateral Equipment Used counter for contact support PRN Reps/Minutes 3 Comments L 10, 8, 5 ; R 4, 7, 5 Forward, backward and side stepping with band Standing Exercise Name review HEP f/b/s Side bilateral Resistance TB #2 Reps/Minutes 20 ft x2 laps each direction Comments CG back stepping for balance, cued slow w/ WBOS PT-OP-T Assessment and Plan Start: 07/15/20 15:29 Freq: Status: Active Protocol: Document 08/09/20 09:45 SP (Rec: 08/09/20 12:51 SP [id number]) Physical Therapy Assessment Goals 5 Customer Engagement Manager Goal (LTG) Pt will perform progressive HEP with I including flexibility, alignment, balance, strengthening and gait activities to improve range of motion, strength and balance by 09/17/20. 08/06/20: Pt has been performing HEP exercises: racquet ball massages, foot hammock with level 3 & 4 bands , calf stretches, hamstring stretch, brice stretch, backwards and side stepping with band, Tandem standing in corner, partial when right foot behind, added 4 way ankle TB, sit to stands, SLS for time, hip stretch LTG Duration 8 weeks 4 [facility] Goal (LTG) Pt will gait train at least 1600 feet in 6 minutes without LOB to improve ability to walk with for exercise by 09/17/20. LTG Duration 8 weeks 3 [facility] Goal (LTG) Pt will present with improved B hip flexion and abduction strength to / to improve balance and functional strength by 09/17/20. LTG Duration 8 weeks 2 Impairment Reports of falls, listing to the right, unable to perform Tandem gait Customer Engagement Manager Goal (LTG) Pt will present WNLs on a standardized balance test to decrease fall risk by 09/17/20. LTG Duration 8 weeks 1 Impairment LEF reflects 31.25% impairment Customer Engagement Manager Goal (LTG) Pt will present with an improved LEF score to reflect no more than 25% impairment to improve functional tasks and balance by 09/17/20. LTG Duration 8 weeks Assessment Summary Assessment Tx focused on HEP, initated 4 way ankle TB, sit to stands with improved hip hinge post cuing and SLS for time with cuing for upright posture, stance leg over NAZANIN and glut fac with imprived time. Back stepping band walk challenging today required rail and contact posteriorly with cuing for slower pacing to allow safety retro lean. Physical Therapy Plan Frequency and Duration Frequency of Treatment 2x/Week Duration of Treatment 8 weeks Plan of Care Start Date 07/20/20 Plan of Care End Date 09/20/20 Therapeutic Interventions Therapeutic Interventions Balance Training,Canalithic Repositioning,Coordination Training,Gait Training,Home Exercise Program,Joint Mobilizations,Manual Therapy, Neuromuscular Re-education, Patient/Caregiver Education, Self-Care/Home Management, Sensory Integration,Soft Tissue Mobilization,Taping, Therapeutic Activities, Therapeutic Exercises Modalities Cold Pack/Ice Massage,Hot Packs Next Visit Focus/Plan Next Note Type Treatment Note Next Visit Plan Assess response to sls, sit to stands, ankle strength/mob and band walk last tx. Progress strengthening and balance exercises. Consider heel raises, intrascapular, shoulder and core strengthening. Con't to work on cervical spine.
--- NOTE | 2020-08-11 15:22 | PT.OTN ---
Current Diagnoses Unspecified abnormalities of gait and mobility (08/11/20) Physical Therapy Treatment Note PT-OP-A Visit Information Start: 07/15/20 15:29 Freq: Status: Active Protocol: Document 08/11/20 14:32 MB (Rec: 08/11/20 14:52 MB [id number]) Out-Patient Physical Therapy Visit Information Visit Information Visit Type Treatment Note Visit Note Medicare 03/03 before KX 2020 Visit Start Time 14:32 Visit Stop Time 15:15 Total Visit Minutes 43 Visit Number 8 Number of MUFFLER INSTALLER Visits 0 PT-OP-B Current Condition Start: 07/15/20 15:29 Freq: Status: Active Protocol: Document 07/20/20 13:01 MB (Rec: 07/20/20 13:18 MB [id number]) Current Condition History of Current Condition Onset Date 2015 Current Complaints Balance and inability to walk in a straight line History of Current Condition PMH: increased ferritin from hemochromatosis, right ankle surgery 2001 to remove bone spurs and pt had trouble and then had to have fusion in 2012. He has history of arthritis. Pt reports that since surgery 2012, his toes went numb and he never got his sensation back. He has three screws in. Further PMH: HTN, a -fib and on blood thinner, left THR 2008, vericose veins, neck arthritis. If pt turns his head to the left for long enough, he gets tingling near brachial plexus and into shoulder. If he turns his head to the right, he can get paresthesias down to the top of his thumb. Pt reports history of light- headedness and dizziness with turning in the bed that he no longer gets. Pt occ gets cervicogenic headaches. Pt has trouble walking on unstable surfaces and falls to the right. His last fall was in 2019. He is stable on his sailboat. Pt lives on his sailboat. Pt reports arthritic pain 2/10 in his hands, 2/10 in his posterior neck, 1/10 in his SI area and 1/10 in his right ankle. Prior Treatments and Tests PT for right ankle, neck and LB. Pt liked relieving the pain. He likes visuals with exercises. Treatment Goals Patient/Caregiver Goals Find out something to help his balance PT-OP-C Subjective Start: 07/15/20 15:29 Freq: Status: Active Protocol: Document 08/11/20 14:32 MB (Rec: 08/11/20 14:52 MB [id number]) OP-PT Subjective Patient Comments Patient Comments I did them all today. PT-OP-D Balance Start: 07/15/20 15:29 Freq: Status: Active Protocol: Document 07/20/20 13:01 MB (Rec: 07/20/20 14:52 MB [id number]) Balance Tests Other Other Balance Tests Performed Components of FGA performed with bare feet including head turns, walking backwards and walking with eyes shut and pt has no LOB with these tasks. He cannot perform Tandem gait d/t LOB. PT-OP-G Mobility & Gait Start: 07/15/20 15:29 Freq: Status: Active Protocol: Document 07/20/20 13:01 MB (Rec: 07/20/20 14:52 MB [id number]) OP Gait Assessment Gait Gait Assistance Required: Independent Distance (Feet) 100 Able to Maintain Weight Bearing Status Yes During Gait Assistive Devices Assistive Device None Orthotic/Prosthetic Devices or Brace: No Factors Limiting Gait Function Factors Limiting Gait Function Decreased Strength,Limited Range of Motion,Poor Balance Comments Gait Comments Gait in bare feet several reps in the hallway: pt with right foot anomalies that make gait appear to be favoring the right foot and the right foot presents with functional foot drop--decreased push off, rigid ankle and mid foot and hyper extension/whipping type reponse of right knee with final WB phase of gait. Pt reports increased listing to the right or LOB with increased gait distance at home and so 6MWT performed with pt wearing his shoes and socks and he gait trains 1254 feet in 6 minutes, favoring the right foot and no LOB PT-OP-J Posture/Palpation/Skin Start: 07/15/20 15:29 Freq: Status: Active Protocol: Document 07/20/20 13:01 MB (Rec: 07/20/20 14:52 MB [id number]) Posture Evaluation Comments Posture Comments Many postural changes in standing, pt barefoot: left tragus 3 in front of left AC joint, decreased cervical lordosis, Dowager's hump, decreased thoracic kyphosis, elevated shoulders, curvature reversal and left convexity lower thoracic area, decreased lumbar lordosis, skin changes B distal LEs with edema right greater than left LE, left shoulder and iliac crest higher than the right, B knee valgus and B foot anomalies, greater on the right with supinated foot on the right and mildly pronated on the left, right calf is atrophied compared to the left. Pt stands with right foot slightly in front of the left. PT-OP-K Range of Motion Start: 07/15/20 15:29 Freq: Status: Active Protocol: Document 07/20/20 13:01 MB (Rec: 07/20/20 14:52 MB [id number]) Cervical Spine Range of Motion Cervical Spine Active Testing Position Standing Flexion 20 Extension 15 Rotation Left 15 Rotation Right 20 Lateral Flexion Left 10 Lateral Flexion Right 10 Comments Postural changes contribute to cervical ROM loss Ankle and Foot Goniometric Range of Motion Ankle and Foot ROM Limitations Comments B foot changes, greater on the right with pt with very little active eversion and inversion, less than 5 deg each on the right foot. Right ankle DF 5 deg with leg extended in supine. With attempted heel raises in standing, pt can clear right heel x5 with excessive right knee flexion and thrusting weight forward. PT-OP-M Strength Start: 07/15/20 15:29 Freq: Status: Active Protocol: Document 07/20/20 13:01 MB (Rec: 07/20/20 14:52 MB [id number]) Hip Strength Hip Manual Muscle Testing Left Flexion (L2) 5 Normal Abduction 3+ Fair+ Right Flexion (L2) 3+ Fair+ Abduction 4 Good Knee Strength Knee Manual Muscle Testing Left Flexion (S2) 5 Normal Extension (L3) 5 Normal Right Flexion (S2) 5 Normal Extension (L3) 5 Normal Ankle/Foot Strength Ankle and Foot Manual Muscle Testing Left Dorsiflexion (L4) 5 Normal Inversion 4 Good Eversion (S1) 4 Good Comments Pt performs 20 reps heel raises in standing with B hand support against the wall Right Comments MMT is not accurate in setting of ROM losses from old ankle fusion and functional foot drop with gait requiring increased right knee flexion Toe Strength Toe Manual Muscle Testing Left Great Toe Extension 3+ Fair+ Comments Left 5th toe does not extend with the rest of toes when observed Right Great Toe Extension 3+ Fair+ PT-OP-Q Treatments Start: 07/15/20 15:29 Freq: Status: Active Protocol: Document 08/11/20 14:32 MB (Rec: 08/11/20 15:20 MB [id number]) Therapeutic Exercises Standing Exercises Shoulder ER and scapular retraction strengthening with band Comments Level 2 band, 5 reps, pt cannot tolerate retraction with band over doorway Manual Therapy Treatment Other Other Manual Treatments Pt prone: B scapular mobs, thoracic PA mobs with rib recoil, right upper traps release, B STM upper traps along cervical spine PT-OP-T Assessment and Plan Start: 07/15/20 15:29 Freq: Status: Active Protocol: Document 08/11/20 14:32 MB (Rec: 08/11/20 14:52 MB [id number]) Physical Therapy Assessment Rehab Potential Rehabilitation Potential Fair Evaluation Complexity Number of Personal Factors/Comorbidities 1-2 Number of Body Systems Impaired 1-2 Clinical Presentation at Evaluation Evolving Impairments Impairments Balance,Gait,Integument,Pain, Posture,ROM,Sensation,Soft Tissue Mobility,Strength Other Impairments Pt reports numbness on the ball of his left foot. He presents with integumentary changes from hemachromatosis and B LE edema. Other Concerns Fall Risk Yes Goals 5 Forestry Support Specialist Goal (LTG) Pt will perform progressive HEP with I including flexibility, alignment, balance, strengthening and gait activities to improve range of motion, strength and balance by 09/17/20. 08/11/20: Pt has been performing HEP exercises: racquet ball massages, foot hammock with level 3 & 4 bands , calf stretches, hamstring stretch, brice stretch, backwards and side stepping with band, Tandem standing in corner, partial when right foot behind, SLS, hip rotator stretch, ankle strengthening and intrascapular and shoulder ER strengthening with bands LTG Duration 8 weeks 4 [facility] Goal (LTG) Pt will gait train at least 1600 feet in 6 minutes without LOB to improve ability to walk with for exercise by 09/17/20. LTG Duration 8 weeks 3 [facility] Goal (LTG) Pt will present with improved B hip flexion and abduction strength to 11/17 to improve balance and functional strength by 09/17/20. LTG Duration 8 weeks 2 Impairment Reports of falls, listing to the right, unable to perform Tandem gait [facility] Goal (LTG) Pt will present WNLs on a standardized balance test to decrease fall risk by 09/17/20. LTG Duration 8 weeks 1 Impairment LEF reflects 31.25% impairment Forestry Support Specialist Goal (LTG) Pt will present with an improved LEF score to reflect no more than 25% impairment to improve functional tasks and balance by 09/17/20. LTG Duration 8 weeks Assessment Summary Assessment Added postural strengthening today and ongoing manual work. Discussed plan with pt and he is reaching HEP goals and anticipate 2 more treatments. Physical Therapy Plan Frequency and Duration Frequency of Treatment 2x/Week Duration of Treatment 8 weeks Plan of Care Start Date 07/20/20 Plan of Care End Date 09/20/20 Therapeutic Interventions Therapeutic Interventions Balance Training,Canalithic Repositioning,Coordination Training,Gait Training,Home Exercise Program,Joint Mobilizations,Manual Therapy, Neuromuscular Re-education, Patient/Caregiver Education, Self-Care/Home Management, Sensory Integration,Soft Tissue Mobilization,Taping, Therapeutic Activities, Therapeutic Exercises Modalities Cold Pack/Ice Massage,Hot Packs Next Visit Focus/Plan Next Note Type Treatment Note Next Visit Plan Review any exercises as needed and manual work
--- NOTE | 2020-08-16 13:00 | PT.OTN ---
Current Diagnoses Unspecified abnormalities of gait and mobility (08/16/20) Physical Therapy Treatment Note PT-OP-A Visit Information Start: 07/15/20 15:29 Freq: Status: Active Protocol: Document 08/16/20 12:17 MB (Rec: 08/16/20 12:32 MB [id number]) Out-Patient Physical Therapy Visit Information Visit Information Visit Type Treatment Note Visit Note Medicare 03/03 before KX 2020 Visit Start Time 12:17 Visit Stop Time 13:00 Total Visit Minutes 43 Visit Number 9 Number of REGISTRY NURSE Visits 0 PT-OP-B Current Condition Start: 07/15/20 15:29 Freq: Status: Active Protocol: Document 07/20/20 13:01 MB (Rec: 07/20/20 13:18 MB [id number]) Current Condition History of Current Condition Onset Date 2015 Current Complaints Balance and inability to walk in a straight line History of Current Condition PMH: increased ferritin from hemochromatosis, right ankle surgery 2001 to remove bone spurs and pt had trouble and then had to have fusion in 2012. He has history of arthritis. Pt reports that since surgery 2012, his toes went numb and he never got his sensation back. He has three screws in. Further PMH: HTN, a -fib and on blood thinner, left THR 2008, vericose veins, neck arthritis. If pt turns his head to the left for long enough, he gets tingling near brachial plexus and into shoulder. If he turns his head to the right, he can get paresthesias down to the top of his thumb. Pt reports history of light- headedness and dizziness with turning in the bed that he no longer gets. Pt occ gets cervicogenic headaches. Pt has trouble walking on unstable surfaces and falls to the right. His last fall was in 2019. He is stable on his sailboat. Pt lives on his sailboat. Pt reports arthritic pain 2/10 in his hands, 2/10 in his posterior neck, 1/10 in his SI area and 1/10 in his right ankle. Prior Treatments and Tests PT for right ankle, neck and LB. Pt liked relieving the pain. He likes visuals with exercises. Treatment Goals Patient/Caregiver Goals Find out something to help his balance PT-OP-C Subjective Start: 07/15/20 15:29 Freq: Status: Active Protocol: Document 08/16/20 12:17 MB (Rec: 08/16/20 12:32 MB [id number]) OP-PT Subjective Patient Comments Patient Comments I'm okay. PT-OP-D Balance Start: 07/15/20 15:29 Freq: Status: Active Protocol: Document 07/20/20 13:01 MB (Rec: 07/20/20 14:52 MB [id number]) Balance Tests Other Other Balance Tests Performed Components of FGA performed with bare feet including head turns, walking backwards and walking with eyes shut and pt has no LOB with these tasks. He cannot perform Tandem gait d/t LOB. PT-OP-G Mobility & Gait Start: 07/15/20 15:29 Freq: Status: Active Protocol: Document 07/20/20 13:01 MB (Rec: 07/20/20 14:52 MB [id number]) OP Gait Assessment Gait Gait Assistance Required: Independent Distance (Feet) 100 Able to Maintain Weight Bearing Status Yes During Gait Assistive Devices Assistive Device None Orthotic/Prosthetic Devices or Brace: No Factors Limiting Gait Function Factors Limiting Gait Function Decreased Strength,Limited Range of Motion,Poor Balance Comments Gait Comments Gait in bare feet several reps in the hallway: pt with right foot anomalies that make gait appear to be favoring the right foot and the right foot presents with functional foot drop--decreased push off, rigid ankle and mid foot and hyper extension/whipping type reponse of right knee with final WB phase of gait. Pt reports increased listing to the right or LOB with increased gait distance at home and so 6MWT performed with pt wearing his shoes and socks and he gait trains 1254 feet in 6 minutes, favoring the right foot and no LOB PT-OP-J Posture/Palpation/Skin Start: 07/15/20 15:29 Freq: Status: Active Protocol: Document 07/20/20 13:01 MB (Rec: 07/20/20 14:52 MB [id number]) Posture Evaluation Comments Posture Comments Many postural changes in standing, pt barefoot: left tragus 3 in front of left AC joint, decreased cervical lordosis, Dowager's hump, decreased thoracic kyphosis, elevated shoulders, curvature reversal and left convexity lower thoracic area, decreased lumbar lordosis, skin changes B distal LEs with edema right greater than left LE, left shoulder and iliac crest higher than the right, B knee valgus and B foot anomalies, greater on the right with supinated foot on the right and mildly pronated on the left, right calf is atrophied compared to the left. Pt stands with right foot slightly in front of the left. PT-OP-K Range of Motion Start: 07/15/20 15:29 Freq: Status: Active Protocol: Document 07/20/20 13:01 MB (Rec: 07/20/20 14:52 MB [id number]) Cervical Spine Range of Motion Cervical Spine Active Testing Position Standing Flexion 20 Extension 15 Rotation Left 15 Rotation Right 20 Lateral Flexion Left 10 Lateral Flexion Right 10 Comments Postural changes contribute to cervical ROM loss Ankle and Foot Goniometric Range of Motion Ankle and Foot ROM Limitations Comments B foot changes, greater on the right with pt with very little active eversion and inversion, less than 5 deg each on the right foot. Right ankle DF 5 deg with leg extended in supine. With attempted heel raises in standing, pt can clear right heel x5 with excessive right knee flexion and thrusting weight forward. PT-OP-M Strength Start: 07/15/20 15:29 Freq: Status: Active Protocol: Document 07/20/20 13:01 MB (Rec: 07/20/20 14:52 MB [id number]) Hip Strength Hip Manual Muscle Testing Left Flexion (L2) 5 Normal Abduction 3+ Fair+ Right Flexion (L2) 3+ Fair+ Abduction 4 Good Knee Strength Knee Manual Muscle Testing Left Flexion (S2) 5 Normal Extension (L3) 5 Normal Right Flexion (S2) 5 Normal Extension (L3) 5 Normal Ankle/Foot Strength Ankle and Foot Manual Muscle Testing Left Dorsiflexion (L4) 5 Normal Inversion 4 Good Eversion (S1) 4 Good Comments Pt performs 20 reps heel raises in standing with B hand support against the wall Right Comments MMT is not accurate in setting of ROM losses from old ankle fusion and functional foot drop with gait requiring increased right knee flexion Toe Strength Toe Manual Muscle Testing Left Great Toe Extension 3+ Fair+ Comments Left 5th toe does not extend with the rest of toes when observed Right Great Toe Extension 3+ Fair+ PT-OP-Q Treatments Start: 07/15/20 15:29 Freq: Status: Active Protocol: Document 08/16/20 12:17 MB (Rec: 08/16/20 12:32 MB [id number]) Therapeutic Exercises Sitting Exercises Thoracic rotation Comments B and held and breathed to the end Manual Therapy Treatment Other Other Manual Treatments Pt prone: B scapular mobs, thoracic PA mobs with rib recoil, right upper traps release, B STM upper traps along cervical spine PT-OP-T Assessment and Plan Start: 07/15/20 15:29 Freq: Status: Active Protocol: Document 08/16/20 12:17 MB (Rec: 08/16/20 12:32 MB [id number]) Physical Therapy Assessment Rehab Potential Rehabilitation Potential Fair Evaluation Complexity Number of Personal Factors/Comorbidities 1-2 Number of Body Systems Impaired 1-2 Clinical Presentation at Evaluation Evolving Impairments Impairments Balance,Gait,Integument,Pain, Posture,ROM,Sensation,Soft Tissue Mobility,Strength Other Impairments Pt reports numbness on the ball of his left foot. He presents with integumentary changes from hemachromatosis and B LE edema. Other Concerns Fall Risk Yes Goals 5 Neon Technician Goal (LTG) Pt will perform progressive HEP with I including flexibility, alignment, balance, strengthening and gait activities to improve range of motion, strength and balance by 09/17/20. 08/11/20: Pt has been performing HEP exercises: racquet ball massages, foot hammock with level 3 & 4 bands , calf stretches, hamstring stretch, brice stretch, backwards and side stepping with band, Tandem standing in corner, partial when right foot behind, SLS, hip rotator stretch, ankle strengthening and intrascapular and shoulder ER strengthening with bands LTG Duration 8 weeks 4 [facility] Goal (LTG) Pt will gait train at least 1600 feet in 6 minutes without LOB to improve ability to walk with for exercise by 09/17/20. LTG Duration 8 weeks 3 [facility] Goal (LTG) Pt will present with improved B hip flexion and abduction strength to / to improve balance and functional strength by 09/17/20. LTG Duration 8 weeks 2 Impairment Reports of falls, listing to the right, unable to perform Tandem gait Neon Technician Goal (LTG) Pt will present WNLs on a standardized balance test to decrease fall risk by 09/17/20. LTG Duration 8 weeks 1 Impairment LEF reflects 31.25% impairment Neon Technician Goal (LTG) Pt will present with an improved LEF score to reflect no more than 25% impairment to improve functional tasks and balance by 09/17/20. LTG Duration 8 weeks Assessment Summary Assessment Added thoracic rotation today and manual work. Anticipate d/ c next treatment date. Physical Therapy Plan Frequency and Duration Frequency of Treatment 2x/Week Duration of Treatment 8 weeks Plan of Care Start Date 07/20/20 Plan of Care End Date 09/20/20 Therapeutic Interventions Therapeutic Interventions Balance Training,Canalithic Repositioning,Coordination Training,Gait Training,Home Exercise Program,Joint Mobilizations,Manual Therapy, Neuromuscular Re-education, Patient/Caregiver Education, Self-Care/Home Management, Sensory Integration,Soft Tissue Mobilization,Taping, Therapeutic Activities, Therapeutic Exercises Modalities Cold Pack/Ice Massage,Hot Packs Next Visit Focus/Plan Next Note Type Discharge Summary
--- NOTE | 2020-08-18 10:29 | PT.OTN ---
Current Diagnoses Unspecified abnormalities of gait and mobility (08/18/20) Physical Therapy Treatment Note PT-OP-A Visit Information Start: 07/15/20 15:29 Freq: Status: Active Protocol: Document 08/18/20 09:47 MB (Rec: 08/18/20 10:28 MB [id number]) Out-Patient Physical Therapy Visit Information Visit Information Visit Type Treatment Note Visit Start Time 09:47 Visit Stop Time 10:25 Total Visit Minutes 38 Visit Number 10 PT-OP-B Current Condition Start: 07/15/20 15:29 Freq: Status: Active Protocol: Document 07/20/20 13:01 MB (Rec: 07/20/20 13:18 MB [id number]) Current Condition History of Current Condition Onset Date 2015 Current Complaints Balance and inability to walk in a straight line History of Current Condition PMH: increased ferritin from hemochromatosis, right ankle surgery 2001 to remove bone spurs and pt had trouble and then had to have fusion in 2012. He has history of arthritis. Pt reports that since surgery 2012, his toes went numb and he never got his sensation back. He has three screws in. Further PMH: HTN, a -fib and on blood thinner, left THR 2008, vericose veins, neck arthritis. If pt turns his head to the left for long enough, he gets tingling near brachial plexus and into shoulder. If he turns his head to the right, he can get paresthesias down to the top of his thumb. Pt reports history of light- headedness and dizziness with turning in the bed that he no longer gets. Pt occ gets cervicogenic headaches. Pt has trouble walking on unstable surfaces and falls to the right. His last fall was in 2019. He is stable on his sailboat. Pt lives on his sailboat. Pt reports arthritic pain 2/10 in his hands, 2/10 in his posterior neck, 1/10 in his SI area and 1/10 in his right ankle. Prior Treatments and Tests PT for right ankle, neck and LB. Pt liked relieving the pain. He likes visuals with exercises. Treatment Goals Patient/Caregiver Goals Find out something to help his balance PT-OP-C Subjective Start: 07/15/20 15:29 Freq: Status: Active Protocol: Document 08/18/20 09:47 MB (Rec: 08/18/20 10:28 MB [id number]) OP-PT Subjective Patient Comments Patient Comments I'm doing okay. Pt states that he is doing his exercises . PT-OP-D Balance Start: 07/15/20 15:29 Freq: Status: Active Protocol: Document 07/20/20 13:01 MB (Rec: 07/20/20 14:52 MB [id number]) Balance Tests Other Other Balance Tests Performed Components of FGA performed with bare feet including head turns, walking backwards and walking with eyes shut and pt has no LOB with these tasks. He cannot perform Tandem gait d/t LOB. PT-OP-G Mobility & Gait Start: 07/15/20 15:29 Freq: Status: Active Protocol: Document 07/20/20 13:01 MB (Rec: 07/20/20 14:52 MB [id number]) OP Gait Assessment Gait Gait Assistance Required: Independent Distance (Feet) 100 Able to Maintain Weight Bearing Status Yes During Gait Assistive Devices Assistive Device None Orthotic/Prosthetic Devices or Brace: No Factors Limiting Gait Function Factors Limiting Gait Function Decreased Strength,Limited Range of Motion,Poor Balance Comments Gait Comments Gait in bare feet several reps in the hallway: pt with right foot anomalies that make gait appear to be favoring the right foot and the right foot presents with functional foot drop--decreased push off, rigid ankle and mid foot and hyper extension/whipping type reponse of right knee with final WB phase of gait. Pt reports increased listing to the right or LOB with increased gait distance at home and so 6MWT performed with pt wearing his shoes and socks and he gait trains 1254 feet in 6 minutes, favoring the right foot and no LOB PT-OP-J Posture/Palpation/Skin Start: 07/15/20 15:29 Freq: Status: Active Protocol: Document 07/20/20 13:01 MB (Rec: 07/20/20 14:52 MB [id number]) Posture Evaluation Comments Posture Comments Many postural changes in standing, pt barefoot: left tragus 3 in front of left AC joint, decreased cervical lordosis, Dowager's hump, decreased thoracic kyphosis, elevated shoulders, curvature reversal and left convexity lower thoracic area, decreased lumbar lordosis, skin changes B distal LEs with edema right greater than left LE, left shoulder and iliac crest higher than the right, B knee valgus and B foot anomalies, greater on the right with supinated foot on the right and mildly pronated on the left, right calf is atrophied compared to the left. Pt stands with right foot slightly in front of the left. PT-OP-K Range of Motion Start: 07/15/20 15:29 Freq: Status: Active Protocol: Document 07/20/20 13:01 MB (Rec: 07/20/20 14:52 MB [id number]) Cervical Spine Range of Motion Cervical Spine Active Testing Position Standing Flexion 20 Extension 15 Rotation Left 15 Rotation Right 20 Lateral Flexion Left 10 Lateral Flexion Right 10 Comments Postural changes contribute to cervical ROM loss Ankle and Foot Goniometric Range of Motion Ankle and Foot ROM Limitations Comments B foot changes, greater on the right with pt with very little active eversion and inversion, less than 5 deg each on the right foot. Right ankle DF 5 deg with leg extended in supine. With attempted heel raises in standing, pt can clear right heel x5 with excessive right knee flexion and thrusting weight forward. PT-OP-M Strength Start: 07/15/20 15:29 Freq: Status: Active Protocol: Document 07/20/20 13:01 MB (Rec: 07/20/20 14:52 MB [id number]) Hip Strength Hip Manual Muscle Testing Left Flexion (L2) 5 Normal Abduction 3+ Fair+ Right Flexion (L2) 3+ Fair+ Abduction 4 Good Knee Strength Knee Manual Muscle Testing Left Flexion (S2) 5 Normal Extension (L3) 5 Normal Right Flexion (S2) 5 Normal Extension (L3) 5 Normal Ankle/Foot Strength Ankle and Foot Manual Muscle Testing Left Dorsiflexion (L4) 5 Normal Inversion 4 Good Eversion (S1) 4 Good Comments Pt performs 20 reps heel raises in standing with B hand support against the wall Right Comments MMT is not accurate in setting of ROM losses from old ankle fusion and functional foot drop with gait requiring increased right knee flexion Toe Strength Toe Manual Muscle Testing Left Great Toe Extension 3+ Fair+ Comments Left 5th toe does not extend with the rest of toes when observed Right Great Toe Extension 3+ Fair+ PT-OP-Q Treatments Start: 07/15/20 15:29 Freq: Status: Active Protocol: Document 08/18/20 09:47 MB (Rec: 08/18/20 10:28 MB [id number]) Therapeutic Exercises Sitting Exercises pirformis stretch Comments Performed in sitting today Upper traps MWM Comments Performed on intrascapular muscles today Standing Exercises Forward, backward and side stepping with band Comments Level 1 and 2 bands today, several trials Other Exercises Answered all HEP exercises Comments Performed this today in preparation for d/c PT-OP-T Assessment and Plan Start: 07/15/20 15:29 Freq: Status: Active Protocol: Document 08/18/20 09:47 MB (Rec: 08/18/20 10:28 MB [id number]) Physical Therapy Assessment Goals 5 Coverage Specialist Rn Goal (LTG) Pt will perform progressive HEP with I including flexibility, alignment, balance, strengthening and gait activities to improve range of motion, strength and balance by 09/17/20. 08/18/20: Pt has been performing HEP exercises: racquet ball massages, foot hammock with level 3 & 4 bands, calf stretches, hamstring stretch, brice stretch, backwards and side stepping with band, Tandem standing in corner, partial when right foot behind , SLS, hip rotator stretch, ankle strengthening and intrascapular and shoulder ER strengthening with bands LTG Duration Met 4 Coverage Specialist Rn Goal (LTG) Pt will gait train at least 1600 feet in 6 minutes without LOB to improve ability to walk with for exercise by 09/17/20. 08/18/20: Pt gait trains 1766 feet in 6 minutes with one episode of scuffing left foot with gait LTG Duration Met 3 Long-Term Goal (LTG) Pt will present with improved B hip flexion and abduction strength to 5/5 to improve balance and functional strength by 09/17/20. 08/18/20: Right hip flexion and abduction 4/5 and left hip flexion and abduction 5/5 LTG Duration Met 2 Impairment Reports of falls, listing to the right, unable to perform Tandem gait Coverage Specialist Rn Goal (LTG) Pt will present WNLs on a standardized balance test to decrease fall risk by 09/17/20. 08/18/20: Pt scores WNLs on FGA balance testing with only trouble with Tandem walking, score 28/30 LTG Duration Met 1 Impairment LEF reflects 31.25% impairment Coverage Specialist Rn Goal (LTG) Pt will present with an improved LEF score to reflect no more than 25% impairment to improve functional tasks and balance by 09/17/20. 2/3/21: LEF score reflects 26. 25% impairment, an improvement since evaluation LTG Duration Progressed Assessment Summary Assessment Pt has progressed towards or met all PT goals since starting PT. He has met 6MWT, HEP and FGA (balance ) goals. He has progressed towards strengthening and LEF goals. Pt is ready to d/c PT.
== END 2020-08-19 14:26 ==
LOC: PHYS 09:45
PROVIDERS: Family Provider Nurse Practitioner Family; PCP Nurse Practitioner Family; Referring Provider Psychiatry & Neurology Neurology; Visit Provider Psychiatry & Neurology Neurology
DX: R26.9 Unspecified abnormalities of gait and mobility (principal)
CPT/HCPCS: 97110; 97116; 97140; 97161

== ENCOUNTER → 2020-10-26 09:08 | Outpatient (CLI) | payer MEDICARE, OTHER, SELFPAY ==
--- NOTE | 2020-10-26 | DI.RAD.S_ITS ---
PROCEDURE: XR CERVICAL SPINE MIN 6V INDICATIONS: Radiculopathy, cervical region TECHNIQUE: 6 views of the cervical spine acquired. COMPARISON: None. FINDINGS: Bones: No fractures or dislocations to the T1 level. Oblique images demonstrate no bony foraminal stenoses. There is moderately severe degenerative disc disease at C5-6 and C6-7 and facet osteoarthritis that is also moderately severe at these levels. Spinal and foraminal stenosis would be expected. Soft tissues: No prevertebral soft tissue swelling. IMPRESSION: C5-6 and C6-7 moderately severe degenerative disc disease and facet osteoarthritis to the degree that significant spinal and foraminal stenosis likely is present. Dictated by: Ernesto Roman M.D. on 10/26/2020 at 10:32 Approved by: Ernesto Roman M.D. on 10/26/2020 at 10:34
== END ==
PROVIDERS: Family Provider Nurse Practitioner Family; PCP Nurse Practitioner Family; Referring Provider Psychiatry & Neurology Neurology; Visit Provider Psychiatry & Neurology Neurology
DX: M50.122 Cervical disc disorder at C5-C6 level with radiculopathy (principal); M47.22 Other spondylosis with radiculopathy, cervical region
CPT/HCPCS: 72052

== ENCOUNTER 2020-10-28 08:15 | Outpatient (RCR) | payer MEDICARE, OTHER, SELFPAY ==
--- NOTE | 2020-09-28 15:45 | PT.OIE ---
Current Diagnoses Spondylopathy, unspecified (09/28/20) Past Medical History (Last Updated 08/31/20 @ 15:27 by VIVI Ponce) Ankle pain (~2001) Aortic ectasia, abdominal (07/2019) Atrial fibrillation (2004) Balance problem (2016) Cervical spine disease (~2007) Chronic back pain (~1993) Degenerative joint disease (DJD) of lumbar spine (~1994) Fractures (~1969) GERD (gastroesophageal reflux disease) (2004) GI bleeding (~2002) Hearing loss Hemochromatosis (2011) History of melanoma in situ (2016) History of smoking 10-25 pack years Hypertension (1999) Melanoma (~2016) Mumps (~1959) Positive PPD (~1994) Rubella (~1960) Shoulder pain (~2018) Sleep apnea (~2008) Vision disorder Past Surgical History (Last Reviewed 02/23/20 @ 07:57 by Everett Felix MD) Anesthesia History of ankle fusion (~01/2013) History of arthroscopy of left knee (~01/2014) History of inguinal hernia repair History of left hip replacement (~2008) History of tonsillectomy (~1959) Visit Care Team Role Provider Type Ofelia Neal MD Other Providers Non-Staff Specialty: Neurology Address: [address] [place] [address], [id number] Email: VIVI Ponce Attending Provider Advanced Preparation Room Manager Family Provider Primary Care Provider Referring Provider Specialty: Family Practice Address: [address] [place] [address], [id number] Email: [email or web address] Physical Therapy Initial Evaluation PT-OP-A Visit Information Start: 09/24/20 14:39 Freq: Status: Active Protocol: Document 09/28/20 14:33 MB (Rec: 09/28/20 14:47 MB [id number]) Out-Patient Physical Therapy Visit Information Visit Information Visit Type Initial Evaluation Visit Note Medicare Pt goes by Ernesto Visit Start Time 14:33 Visit Stop Time 15:00 Total Visit Minutes 27 Visit Number 1 Evaluation Information Evaluation Date 09/28/20 Precautions Precautions Hemochromatosis, neuropathy, s /p right ankle fusion, cervical spinal changes PT-OP-B Current Condition Start: 09/24/20 14:39 Freq: Status: Active Protocol: Document 09/28/20 14:33 MB (Rec: 09/28/20 14:47 MB [id number]) Current Condition History of Current Condition Onset Date Years Current Complaints Radicular numbness down right arm History of Current Condition Pt presents with long history of neck pain and decreased ROM . He has arthritis. He recently finished OPPT course for right foot and balance and postural changes and self STM was initiated at that time. Pt saw his PCP about neck pain and radicular symptoms down his right arm to his dorsal thumb. He has electrical buzzing in left shoulder blade . His biggest complaint is electrical numbness down the arm and hand. He returned to neurologist after completely OPPT for balance and she was glad he is restarting PT for his neck d/ t radicular symptoms. Pt is left-headed except for writing. PMH includes hemochromatosis, neuropathy, a-fib, L THR, R ankle fusion, DDD with changes in cervical and lumbar spine. Pt reports 2/10 posterior neck pain, 1/10 LBP between SI joints, 1/10 pain right ankle. Pt sleeps on his back or side . He has a small contour pillow. He has a CPAP. Prior Treatments and Tests Cervical spinal injections, PT for right foot/balance recently Treatment Goals Patient/Caregiver Goals Help decrease right arm symptoms PT-OP-C Subjective Start: 09/24/20 14:39 Freq: Status: Active Protocol: Document 09/28/20 14:33 MB (Rec: 09/28/20 15:29 MB [id number]) OP-PT Subjective Patient Comments Patient Comments See history of current condition Patient Reported Progress Worse Patient Questionnaires Neck Disability Index NDI Score 8 Neck Disability Index Impairment 1 to 19% Impaired (Score 1-9) Quick Dash- Upper Extremity Quick Dash UE Score 16 Quick Dash UE Impairment 1 to 19% Impaired (Score 1-19) PT-OP-H Neuro Start: 09/24/20 14:39 Freq: Status: Active Protocol: Document 09/28/20 14:33 MB (Rec: 09/28/20 15:45 MB [id number]) Sensation Evaluation Gross Sensation Gross Sensation WNL Comments Summary Comments Pt reports he often has numbness down his right arm to his thumb and this is the most problematic thing for him . He is standing upright with head in neutral when PT checks him today. Known radiculopathy and so PT does not attempt to provoke with cervical testing today. PT-OP-J Posture/Palpation/Skin Start: 09/24/20 14:39 Freq: Status: Active Protocol: Document 09/28/20 14:33 MB (Rec: 09/28/20 15:45 MB [id number]) Posture Evaluation Comments Posture Comments Forward head, rounded shoulder , very limited cervical and thoracic mobility PT-OP-K Range of Motion Start: 09/24/20 14:39 Freq: Status: Active Protocol: Document 09/28/20 14:33 MB (Rec: 09/28/20 15:45 MB [id number]) Cervical Spine Range of Motion Cervical Spine Active Testing Position Standing Flexion 40 Extension 20 Rotation Left 18 Rotation Right 55 Lateral Flexion Left 8 Lateral Flexion Right 10 Shoulder Goniometric Range of Motion Shoulder Left Active Shoulder ROM WFL Yes Testing Position Standing Comments Normal flexion and abduction in standing Right Active Shoulder ROM WFL Yes Testing Position Standing Comments Normal flexion and abduction in standing Wrist Goniometric Range of Motion ROM Limitations Comments Pt does present with decreased B wrist extension and flexion movement in setting of arthritic changes PT-OP-M Strength Start: 09/24/20 14:39 Freq: Status: Active Protocol: Document 09/28/20 14:33 MB (Rec: 09/28/20 15:45 MB [id number]) Shoulder Strength Shoulder Manual Muscle Testing Left Flexion 5 Normal Abduction (C5) 5 Normal External Rotation 5 Normal Internal Rotation 5 Normal Right Flexion 4 Good Abduction (C5) 5 Normal External Rotation 3+ Fair+ Internal Rotation 4 Good Elbow/Forearm Strength Elbow and Forearm Manual Muscle Testing Left Flexion (C6) 5 Normal Extension (C7) 5 Normal Pronation 5 Normal Supination 5 Normal Right Flexion (C6) 5 Normal Extension (C7) 5 Normal Pronation 5 Normal Supination 5 Normal Wrist Strength Wrist Manual Muscle Testing Left Flexion (C7) 5 Normal Extension (C6) 5 Normal Comments In available range Right Flexion (C7) 5 Normal Extension (C6) 5 Normal Comments In available range PT-OP-T Assessment and Plan Start: 09/24/20 14:39 Freq: Status: Active Protocol: Document 09/28/20 14:33 MB (Rec: 09/28/20 15:45 MB [id number]) Physical Therapy Assessment Rehab Potential Rehabilitation Potential Fair Evaluation Complexity Number of Personal Factors/Comorbidities 1-2 Number of Body Systems Impaired 1-2 Clinical Presentation at Evaluation Evolving Impairments Impairments Activity Tolerance,Balance, Pain,Posture,ROM,Sensation, Soft Tissue Mobility,Strength Goals 3 Nursery Technician Goal (LTG) Pt will perform progressive HEP with I including postural, cervical and thoracic mobility, breathing, ROM, balance and strengthening exercises to improve cervical range and decrease paresthesias by 11/28/2020. LTG Duration 8 weeks 2 Nursery Technician Goal (LTG) Pt will present with improved active cervical ROM to at least 25 deg extension, 25 deg left rotation, B SB 15 deg to improve functional head turns with driving and gait by 11/28. LTG Duration 8 weeks 1 Nursery Technician Goal (LTG) Pt will present with an improved QuickDASH score to no more than 5% impairment to reflect improved functional mobility and less numbness by 11/28/2020. LTG Duration 8 weeks Assessment Summary Assessment Pt is a 65 y/o male presenting with right UE numbness and severe limitations in cervical spine ROM d/t DDD and likely other anatomical changes. Pt presents with many postural changes. He has other underlying issues including hemocromatosis, THR, ankle fusion and neuropathy and these affect his mobility and balance as well. He presents with right UE weakness as well . Pt will benefit from PT to improve range, flexibility, posture, balance and strength. He will benefit from manual work to assist with fascial components to presentation. Barriers include chronic progress disease process. Physical Therapy Plan Frequency and Duration Frequency of Treatment 2x/Week Duration of Treatment 8 weeks Plan of Care Start Date 09/28/20 Plan of Care End Date 11/29/20 Therapeutic Interventions Therapeutic Interventions Balance Training,Canalithic Repositioning,Coordination Training,Home Exercise Program ,Joint Mobilizations,Manual Therapy,Neuromuscular Re- education,Patient/Caregiver Education,Self-Care/Home Management,Soft Tissue Mobilization,Taping, Therapeutic Exercises Modalities Cold Pack/Ice Massage,Electric Stimulation,Hot Packs, Ultrasound Next Visit Focus/Plan Next Note Type Treatment Note Next Visit Plan Review applicable exercises given last PT course and initiate manual work, consider Counterstrain
--- NOTE | 2020-09-28 15:45 | PT.OPPOC ---
Physical, Occupational & Speech Therapy At [facility] Current Diagnoses Spondylopathy, unspecified (09/28/20) Visit Care Team Role Provider Type Ofelia Neal MD Other Providers Non-Staff Specialty: Neurology Address: [address] [place], [address] Email: VIVI Ponce Attending Provider Advanced Account Manager Family Provider Primary Care Provider Referring Provider Specialty: Family Practice Address: [address] [place] [address], [address] Email: [email or web address] Plan Of Care PT-OP-T Assessment and Plan Start: 09/24/20 14:39 Freq: Status: Active Protocol: Document 09/28/20 14:33 MB (Rec: 09/28/20 15:45 MB [id number]) Physical Therapy Assessment Rehab Potential Rehabilitation Potential Fair Evaluation Complexity Number of Personal Factors/Comorbidities 1-2 Number of Body Systems Impaired 1-2 Clinical Presentation at Evaluation Evolving Impairments Impairments Activity Tolerance,Balance, Pain,Posture,ROM,Sensation, Soft Tissue Mobility,Strength Goals 3 Field Service Specialist Goal (LTG) Pt will perform progressive HEP with I including postural, cervical and thoracic mobility, breathing, ROM, balance and strengthening exercises to improve cervical range and decrease paresthesias by 11/28/2020. LTG Duration 8 weeks 2 Half-Way Goal (LTG) Pt will present with improved active cervical ROM to at least 25 deg extension, 25 deg left rotation, B SB 15 deg to improve functional head turns with driving and gait by 11/28. LTG Duration 8 weeks 1 Field Service Specialist Goal (LTG) Pt will present with an improved QuickDASH score to no more than 5% impairment to reflect improved functional mobility and less numbness by 11/28/2020. LTG Duration 8 weeks Assessment Summary Assessment Pt is a 65 y/o male presenting with right UE numbness and severe limitations in cervical spine ROM d/t DDD and likely other anatomical changes. Pt presents with many postural changes. He has other underlying issues including hemocromatosis, THR, ankle fusion and neuropathy and these affect his mobility and balance as well. He presents with right UE weakness as well . Pt will benefit from PT to improve range, flexibility, posture, balance and strength. He will benefit from manual work to assist with fascial components to presentation. Barriers include chronic progress disease process. Physical Therapy Plan Frequency and Duration Frequency of Treatment 2x/Week Duration of Treatment 8 weeks Plan of Care Start Date 09/28/20 Plan of Care End Date 11/29/20 Therapeutic Interventions Therapeutic Interventions Balance Training,Canalithic Repositioning,Coordination Training,Home Exercise Program ,Joint Mobilizations,Manual Therapy,Neuromuscular Re- education,Patient/Caregiver Education,Self-Care/Home Management,Soft Tissue Mobilization,Taping, Therapeutic Exercises Modalities Cold Pack/Ice Massage,Electric Stimulation,Hot Packs, Ultrasound Next Visit Focus/Plan Next Note Type Treatment Note Next Visit Plan Review applicable exercises given last PT course and initiate manual work, consider Counterstrain Plan of Care Dates Plan of Care Start Date 09/28/20 Plan of Care End Date 11/29/20 Electronically Signed by: Sarah Bridges, PT 09/28/20 2526 Please Sign and Return: I have reviewed this Plan of Care and certify that the skilled therapy services above are required to meet the patient?s needs. Physician Signature Date Printed Name and Credentials Clinical Instructor Signature Printed Name and Credentials
--- NOTE | 2020-10-06 15:13 | PT.OTN ---
Current Diagnoses Spondylopathy, unspecified (10/06/20) Physical Therapy Treatment Note PT-OP-A Visit Information Start: 09/24/20 14:39 Freq: Status: Active Protocol: Document 10/06/20 14:31 MB (Rec: 10/06/20 14:39 MB [id number]) Out-Patient Physical Therapy Visit Information Visit Information Visit Type Treatment Note Visit Note Medicare Visit Start Time 14:31 Visit Stop Time 15:13 Total Visit Minutes 41 Visit Number 2 Precautions Precautions Hemochromatosis, neuropathy, s /p right ankle fusion, cervical spinal changes PT-OP-B Current Condition Start: 09/24/20 14:39 Freq: Status: Active Protocol: Document 09/28/20 14:33 MB (Rec: 09/28/20 14:47 MB [id number]) Current Condition History of Current Condition Onset Date Years Current Complaints Radicular numbness down right arm History of Current Condition Pt presents with long history of neck pain and decreased ROM . He has arthritis. He recently finished OPPT course for right foot and balance and postural changes and self STM was initiated at that time. Pt saw his PCP about neck pain and radicular symptoms down his right arm to his dorsal thumb. He has electrical buzzing in left shoulder blade . His biggest complaint is electrical numbness down the arm and hand. He returned to neurologist after completely OPPT for balance and she was glad he is restarting PT for his neck d/ t radicular symptoms. Pt is left-headed except for writing. PMH includes hemochromatosis, neuropathy, a-fib, L THR, R ankle fusion, DDD with changes in cervical and lumbar spine. Pt reports 2/10 posterior neck pain, 1/10 LBP between SI joints, 1/10 pain right ankle. Pt sleeps on his back or side . He has a small contour pillow. He has a CPAP. 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 PT-OP-H Neuro Start: 09/24/20 14:39 Freq: Status: Active Protocol: Document 09/28/20 14:33 MB (Rec: 09/28/20 15:45 MB [id number]) Sensation Evaluation Gross Sensation Gross Sensation WNL Comments Summary Comments Pt reports he often has numbness down his right arm to his thumb and this is the most problematic thing for him . He is standing upright with head in neutral when PT checks him today. Known radiculopathy and so PT does not attempt to provoke with cervical testing today. PT-OP-J Posture/Palpation/Skin Start: 09/24/20 14:39 Freq: Status: Active Protocol: Document 09/28/20 14:33 MB (Rec: 09/28/20 15:45 MB [id number]) Posture Evaluation Comments Posture Comments Forward head, rounded shoulder , very limited cervical and thoracic mobility PT-OP-K Range of Motion Start: 09/24/20 14:39 Freq: Status: Active Protocol: Document 09/28/20 14:33 MB (Rec: 09/28/20 15:45 MB [id number]) Cervical Spine Range of Motion Cervical Spine Active Testing Position Standing Flexion 40 Extension 20 Rotation Left 18 Rotation Right 55 Lateral Flexion Left 8 Lateral Flexion Right 10 Shoulder Goniometric Range of Motion Shoulder Left Active Shoulder ROM WFL Yes Testing Position Standing Comments Normal flexion and abduction in standing Right Active Shoulder ROM WFL Yes Testing Position Standing Comments Normal flexion and abduction in standing Wrist Goniometric Range of Motion ROM Limitations Comments Pt does present with decreased B wrist extension and flexion movement in setting of arthritic changes PT-OP-M Strength Start: 09/24/20 14:39 Freq: Status: Active Protocol: Document 09/28/20 14:33 MB (Rec: 09/28/20 15:45 MB [id number]) Shoulder Strength Shoulder Manual Muscle Testing Left Flexion 5 Normal Abduction (C5) 5 Normal External Rotation 5 Normal Internal Rotation 5 Normal Right Flexion 4 Good Abduction (C5) 5 Normal External Rotation 3+ Fair+ Internal Rotation 4 Good Elbow/Forearm Strength Elbow and Forearm Manual Muscle Testing Left Flexion (C6) 5 Normal Extension (C7) 5 Normal Pronation 5 Normal Supination 5 Normal Right Flexion (C6) 5 Normal Extension (C7) 5 Normal Pronation 5 Normal Supination 5 Normal Wrist Strength Wrist Manual Muscle Testing Left Flexion (C7) 5 Normal Extension (C6) 5 Normal Comments In available range Right Flexion (C7) 5 Normal Extension (C6) 5 Normal Comments In available range PT-OP-Q Treatments Start: 09/24/20 14:39 Freq: Status: Active Protocol: Document 10/06/20 14:31 MB (Rec: 10/06/20 15:01 MB [id number]) Manual Therapy Treatment Other Other Manual Treatments Pt agrees to Counterstrain to assess and treat fascial tension and pt presents with tension in the following fascial systems: LF, ALL, standard lymphatic row, spinal vein extension. PT treats stacks in the following systems: standard lymphatic row and spinal vein extension and pt tolerates well. PT-OP-T Assessment and Plan Start: 09/24/20 14:39 Freq: Status: Active Protocol: Document 10/06/20 14:31 MB (Rec: 10/06/20 14:39 MB [id number]) Physical Therapy Assessment Rehab Potential Rehabilitation Potential Fair Evaluation Complexity Number of Personal Factors/Comorbidities 1-2 Number of Body Systems Impaired 1-2 Clinical Presentation at Evaluation Evolving Impairments Impairments Activity Tolerance,Balance, Pain,Posture,ROM,Sensation, Soft Tissue Mobility,Strength Goals 3 Orderlies Teacher Goal (LTG) Pt will perform progressive HEP with I including postural, cervical and thoracic mobility, breathing, ROM, balance and strengthening exercises to improve cervical range and decrease paresthesias by 11/28/2020. LTG Duration 8 weeks 2 Intermediate Goal (LTG) Pt will present with improved active cervical ROM to at least 25 deg extension, 25 deg left rotation, B SB 15 deg to improve functional head turns with driving and gait by 11/28. LTG Duration 8 weeks 1 Intermediate Goal (LTG) Pt will present with an improved QuickDASH score to no more than 5% impairment to reflect improved functional mobility and less numbness by 11/28/2020. LTG Duration 8 weeks Assessment Summary Assessment Initiated Counterstrain today and pt tolerates well today. Con't per POC below. Physical Therapy Plan Frequency and Duration Frequency of Treatment 2x/Week Duration of Treatment 8 weeks Plan of Care Start Date 09/28/20 Plan of Care End Date 11/29/20 Therapeutic Interventions Therapeutic Interventions Balance Training,Canalithic Repositioning,Coordination Training,Home Exercise Program ,Joint Mobilizations,Manual Therapy,Neuromuscular Re- education,Patient/Caregiver Education,Self-Care/Home Management,Soft Tissue Mobilization,Taping, Therapeutic Exercises Modalities Cold Pack/Ice Massage,Electric Stimulation,Hot Packs, Ultrasound Next Visit Focus/Plan Next Note Type Treatment Note Next Visit Plan Review applicable exercises given last PT course and ongoing manual work
--- NOTE | 2020-10-11 08:13 | PT.OTN ---
Current Diagnoses Spondylopathy, unspecified (10/11/20) Physical Therapy Treatment Note PT-OP-A Visit Information Start: 09/24/20 14:39 Freq: Status: Active Protocol: Document 10/11/20 07:31 MB (Rec: 10/11/20 08:09 MB [id number]) Out-Patient Physical Therapy Visit Information Visit Information Visit Type Treatment Note Visit Note Medicare Visit Start Time 07:31 Visit Stop Time 08:10 Total Visit Minutes 39 Visit Number 3 Precautions Precautions Hemochromatosis, neuropathy, s /p right ankle fusion, cervical spinal changes PT-OP-B Current Condition Start: 09/24/20 14:39 Freq: Status: Active Protocol: Document 09/28/20 14:33 MB (Rec: 09/28/20 14:47 MB [id number]) Current Condition History of Current Condition Onset Date Years Current Complaints Radicular numbness down right arm History of Current Condition Pt presents with long history of neck pain and decreased ROM . He has arthritis. He recently finished OPPT course for right foot and balance and postural changes and self STM was initiated at that time. Pt saw his PCP about neck pain and radicular symptoms down his right arm to his dorsal thumb. He has electrical buzzing in left shoulder blade . His biggest complaint is electrical numbness down the arm and hand. He returned to neurologist after completely OPPT for balance and she was glad he is restarting PT for his neck d/ t radicular symptoms. Pt is left-headed except for writing. PMH includes hemochromatosis, neuropathy, a-fib, L THR, R ankle fusion, DDD with changes in cervical and lumbar spine. Pt reports 2/10 posterior neck pain, 1/10 LBP between SI joints, 1/10 pain right ankle. Pt sleeps on his back or side . He has a small contour pillow. He has a CPAP. Prior Treatments and Tests Cervical spinal injections, PT for right foot/balance recently Treatment Goals Patient/Caregiver Goals Help decrease right arm symptoms PT-OP-C Subjective Start: 09/24/20 14:39 Freq: Status: Active Protocol: Document 10/11/20 07:31 MB (Rec: 10/11/20 08:09 MB [id number]) OP-PT Subjective Patient Comments Patient Comments Pt was unable to do exercises yesterday d/t it was rough on the water yesterday. He felt a little better after Counterstrain. He brings in previous PT duration exercises to review. PT-OP-H Neuro Start: 09/24/20 14:39 Freq: Status: Active Protocol: Document 09/28/20 14:33 MB (Rec: 09/28/20 15:45 MB [id number]) Sensation Evaluation Gross Sensation Gross Sensation WNL Comments Summary Comments Pt reports he often has numbness down his right arm to his thumb and this is the most problematic thing for him . He is standing upright with head in neutral when PT checks him today. Known radiculopathy and so PT does not attempt to provoke with cervical testing today. PT-OP-J Posture/Palpation/Skin Start: 09/24/20 14:39 Freq: Status: Active Protocol: Document 09/28/20 14:33 MB (Rec: 09/28/20 15:45 MB [id number]) Posture Evaluation Comments Posture Comments Forward head, rounded shoulder , very limited cervical and thoracic mobility PT-OP-K Range of Motion Start: 09/24/20 14:39 Freq: Status: Active Protocol: Document 09/28/20 14:33 MB (Rec: 09/28/20 15:45 MB [id number]) Cervical Spine Range of Motion Cervical Spine Active Testing Position Standing Flexion 40 Extension 20 Rotation Left 18 Rotation Right 55 Lateral Flexion Left 8 Lateral Flexion Right 10 Shoulder Goniometric Range of Motion Shoulder Left Active Shoulder ROM WFL Yes Testing Position Standing Comments Normal flexion and abduction in standing Right Active Shoulder ROM WFL Yes Testing Position Standing Comments Normal flexion and abduction in standing Wrist Goniometric Range of Motion ROM Limitations Comments Pt does present with decreased B wrist extension and flexion movement in setting of arthritic changes PT-OP-M Strength Start: 09/24/20 14:39 Freq: Status: Active Protocol: Document 09/28/20 14:33 MB (Rec: 09/28/20 15:45 MB [id number]) Shoulder Strength Shoulder Manual Muscle Testing Left Flexion 5 Normal Abduction (C5) 5 Normal External Rotation 5 Normal Internal Rotation 5 Normal Right Flexion 4 Good Abduction (C5) 5 Normal External Rotation 3+ Fair+ Internal Rotation 4 Good Elbow/Forearm Strength Elbow and Forearm Manual Muscle Testing Left Flexion (C6) 5 Normal Extension (C7) 5 Normal Pronation 5 Normal Supination 5 Normal Right Flexion (C6) 5 Normal Extension (C7) 5 Normal Pronation 5 Normal Supination 5 Normal Wrist Strength Wrist Manual Muscle Testing Left Flexion (C7) 5 Normal Extension (C6) 5 Normal Comments In available range Right Flexion (C7) 5 Normal Extension (C6) 5 Normal Comments In available range PT-OP-Q Treatments Start: 09/24/20 14:39 Freq: Status: Active Protocol: Document 10/11/20 07:31 MB (Rec: 10/11/20 08:09 MB [id number]) Therapeutic Exercises Supine Exercises Rene stretch Comments Pt is not doing, hard finding a location on the yaht, d/c Hamstring stretch and AP Comments Reviewed handout and pt to con 't at home Sitting Exercises Thoracic rotation Comments Reviewed handout and pt to con 't at home pirformis stretch Comments Pt not performing and so d/c ankle ev/iv/pf/ df TB Comments Right ankle does not move with it, so d/c Hamstring MWM Comments Reviewed handout and pt to con 't at home Upper traps MWM Comments Reviewed handout and pt to con 't at home AP and toe flexion with band ankle hammock Comments Reviewed handout and pt to con 't at home Standing Exercises Shoulder ER and scapular retraction strengthening with band Comments Reviewed handout and pt to con 't at home sit<> stands Comments Reviewed handout and pt to con 't at home SLS Comments Reviewed handout and pt to con 't at home Tandem standing Comments Reviewed handout and pt to con 't at home Forward, backward and side stepping with band Comments Reviewed handout and pt to con 't at home Glute STM Comments Reviewed handout and pt to con 't at home Infraspinatus MWM with racquet ball Comments Pt performs I today Intrascapular massage with racquet ball Comments Pt performs I today Calf stretching in standing--gastroc and soleus Comments Pt performs I today Other Exercises Answered all HEP exercises Comments Performed today, reviewed all handouts and got rid of several Manual Therapy Treatment Other Other Manual Treatments Pt prone: thoracic PA mobs grade grade III and IV, scapular mobs, STM cervical paraspinals and thoracolumbar paraspinals PT-OP-T Assessment and Plan Start: 09/24/20 14:39 Freq: Status: Active Protocol: Document 10/11/20 07:31 MB (Rec: 10/11/20 08:09 MB [id number]) Physical Therapy Assessment Rehab Potential Rehabilitation Potential Fair Evaluation Complexity Number of Personal Factors/Comorbidities 1-2 Number of Body Systems Impaired 1-2 Clinical Presentation at Evaluation Evolving Impairments Impairments Activity Tolerance,Balance, Pain,Posture,ROM,Sensation, Soft Tissue Mobility,Strength Goals 3 Tube Mounter Goal (LTG) Pt will perform progressive HEP with I including postural, cervical and thoracic mobility, breathing, ROM, balance and strengthening exercises to improve cervical range and decrease paresthesias by 11/28/2020. LTG Duration 8 weeks 2 Skilled Nursing Goal (LTG) Pt will present with improved active cervical ROM to at least 25 deg extension, 25 deg left rotation, B SB 15 deg to improve functional head turns with driving and gait by 11/28. LTG Duration 8 weeks 1 Skilled Nursing Goal (LTG) Pt will present with an improved QuickDASH score to no more than 5% impairment to reflect improved functional mobility and less numbness by 11/28/2020. LTG Duration 8 weeks Assessment Summary Assessment Reviewed all of pt's previous HEP exercises and revised program. Prone manual work. Con't per plan below. Multiple spinal changes are barriers to improving range and decreasing pain. Physical Therapy Plan Frequency and Duration Frequency of Treatment 2x/Week Duration of Treatment 8 weeks Plan of Care Start Date 09/28/20 Plan of Care End Date 11/29/20 Therapeutic Interventions Therapeutic Interventions Balance Training,Canalithic Repositioning,Coordination Training,Home Exercise Program ,Joint Mobilizations,Manual Therapy,Neuromuscular Re- education,Patient/Caregiver Education,Self-Care/Home Management,Soft Tissue Mobilization,Taping, Therapeutic Exercises Modalities Cold Pack/Ice Massage,Electric Stimulation,Hot Packs, Ultrasound Next Visit Focus/Plan Next Note Type Treatment Note Next Visit Plan Counterstrain next treatment date. Progress exercises as needed, con't manual work, consider doorway stretches
--- NOTE | 2020-10-14 09:02 | PT.OTN ---
Current Diagnoses Spondylopathy, unspecified (10/14/20) Physical Therapy Treatment Note PT-OP-A Visit Information Start: 09/24/20 14:39 Freq: Status: Active Protocol: Document 10/14/20 08:16 MB (Rec: 10/14/20 09:01 MB [id number]) Out-Patient Physical Therapy Visit Information Visit Information Visit Type Treatment Note Visit Note Medicare Visit Start Time 08:16 Visit Stop Time 09:00 Total Visit Minutes 44 Visit Number 4 Precautions Precautions Hemochromatosis, neuropathy, s /p right ankle fusion, cervical spinal changes PT-OP-B Current Condition Start: 09/24/20 14:39 Freq: Status: Active Protocol: Document 09/28/20 14:33 MB (Rec: 09/28/20 14:47 MB [id number]) Current Condition History of Current Condition Onset Date Years Current Complaints Radicular numbness down right arm History of Current Condition Pt presents with long history of neck pain and decreased ROM . He has arthritis. He recently finished OPPT course for right foot and balance and postural changes and self STM was initiated at that time. Pt saw his PCP about neck pain and radicular symptoms down his right arm to his dorsal thumb. He has electrical buzzing in left shoulder blade . His biggest complaint is electrical numbness down the arm and hand. He returned to neurologist after completely OPPT for balance and she was glad he is restarting PT for his neck d/ t radicular symptoms. Pt is left-headed except for writing. PMH includes hemochromatosis, neuropathy, a-fib, L THR, R ankle fusion, DDD with changes in cervical and lumbar spine. Pt reports 2/10 posterior neck pain, 1/10 LBP between SI joints, 1/10 pain right ankle. Pt sleeps on his back or side . He has a small contour pillow. He has a CPAP. Prior Treatments and Tests Cervical spinal injections, PT for right foot/balance recently Treatment Goals Patient/Caregiver Goals Help decrease right arm symptoms PT-OP-C Subjective Start: 09/24/20 14:39 Freq: Status: Active Protocol: Document 10/14/20 08:16 MB (Rec: 10/14/20 09:01 MB [id number]) OP-PT Subjective Patient Comments Patient Comments Pt states that he was able to do projects on the boat yesterday. PT-OP-H Neuro Start: 09/24/20 14:39 Freq: Status: Active Protocol: Document 09/28/20 14:33 MB (Rec: 09/28/20 15:45 MB [id number]) Sensation Evaluation Gross Sensation Gross Sensation WNL Comments Summary Comments Pt reports he often has numbness down his right arm to his thumb and this is the most problematic thing for him . He is standing upright with head in neutral when PT checks him today. Known radiculopathy and so PT does not attempt to provoke with cervical testing today. PT-OP-J Posture/Palpation/Skin Start: 09/24/20 14:39 Freq: Status: Active Protocol: Document 09/28/20 14:33 MB (Rec: 09/28/20 15:45 MB [id number]) Posture Evaluation Comments Posture Comments Forward head, rounded shoulder , very limited cervical and thoracic mobility PT-OP-K Range of Motion Start: 09/24/20 14:39 Freq: Status: Active Protocol: Document 09/28/20 14:33 MB (Rec: 09/28/20 15:45 MB [id number]) Cervical Spine Range of Motion Cervical Spine Active Testing Position Standing Flexion 40 Extension 20 Rotation Left 18 Rotation Right 55 Lateral Flexion Left 8 Lateral Flexion Right 10 Shoulder Goniometric Range of Motion Shoulder Left Active Shoulder ROM WFL Yes Testing Position Standing Comments Normal flexion and abduction in standing Right Active Shoulder ROM WFL Yes Testing Position Standing Comments Normal flexion and abduction in standing Wrist Goniometric Range of Motion ROM Limitations Comments Pt does present with decreased B wrist extension and flexion movement in setting of arthritic changes PT-OP-M Strength Start: 09/24/20 14:39 Freq: Status: Active Protocol: Document 09/28/20 14:33 MB (Rec: 09/28/20 15:45 MB [id number]) Shoulder Strength Shoulder Manual Muscle Testing Left Flexion 5 Normal Abduction (C5) 5 Normal External Rotation 5 Normal Internal Rotation 5 Normal Right Flexion 4 Good Abduction (C5) 5 Normal External Rotation 3+ Fair+ Internal Rotation 4 Good Elbow/Forearm Strength Elbow and Forearm Manual Muscle Testing Left Flexion (C6) 5 Normal Extension (C7) 5 Normal Pronation 5 Normal Supination 5 Normal Right Flexion (C6) 5 Normal Extension (C7) 5 Normal Pronation 5 Normal Supination 5 Normal Wrist Strength Wrist Manual Muscle Testing Left Flexion (C7) 5 Normal Extension (C6) 5 Normal Comments In available range Right Flexion (C7) 5 Normal Extension (C6) 5 Normal Comments In available range PT-OP-Q Treatments Start: 09/24/20 14:39 Freq: Status: Active Protocol: Document 10/14/20 08:16 MB (Rec: 10/14/20 09:01 MB [id number]) Manual Therapy Treatment Other Other Manual Treatments Pt agrees to Counterstrain to assess and treat fascial tension and pt presents with tension in the following fascial systems: greatest in standard row LV and treated stacks in this system PT-OP-T Assessment and Plan Start: 09/24/20 14:39 Freq: Status: Active Protocol: Document 10/14/20 08:16 MB (Rec: 10/14/20 09:01 MB [id number]) Physical Therapy Assessment Rehab Potential Rehabilitation Potential Fair Evaluation Complexity Number of Personal Factors/Comorbidities 1-2 Number of Body Systems Impaired 1-2 Clinical Presentation at Evaluation Evolving Impairments Impairments Activity Tolerance,Balance, Pain,Posture,ROM,Sensation, Soft Tissue Mobility,Strength Goals 3 Alf Goal (LTG) Pt will perform progressive HEP with I including postural, cervical and thoracic mobility, breathing, ROM, balance and strengthening exercises to improve cervical range and decrease paresthesias by 11/28/2020. LTG Duration 8 weeks 2 Surface Miner Goal (LTG) Pt will present with improved active cervical ROM to at least 25 deg extension, 25 deg left rotation, B SB 15 deg to improve functional head turns with driving and gait by 11/28. LTG Duration 8 weeks 1 Surface Miner Goal (LTG) Pt will present with an improved QuickDASH score to no more than 5% impairment to reflect improved functional mobility and less numbness by 11/28/2020. LTG Duration 8 weeks Assessment Summary Assessment Counterstrain again today to address fascial tension and pt with lymphatic venous fascial tension and this is understandable given hemocromatosis. Physical Therapy Plan Frequency and Duration Frequency of Treatment 2x/Week Duration of Treatment 8 weeks Plan of Care Start Date 09/28/20 Plan of Care End Date 11/29/20 Therapeutic Interventions Therapeutic Interventions Balance Training,Canalithic Repositioning,Coordination Training,Home Exercise Program ,Joint Mobilizations,Manual Therapy,Neuromuscular Re- education,Patient/Caregiver Education,Self-Care/Home Management,Soft Tissue Mobilization,Taping, Therapeutic Exercises Modalities Cold Pack/Ice Massage,Electric Stimulation,Hot Packs, Ultrasound Next Visit Focus/Plan Next Note Type Treatment Note Next Visit Plan Consider more Counterstrain next treatment date. Progress exercises as needed, con't manual work, consider doorway stretches
--- NOTE | 2020-10-18 08:16 | PT.OTN ---
Current Diagnoses Spondylopathy, unspecified (10/18/20) Physical Therapy Treatment Note PT-OP-A Visit Information Start: 09/24/20 14:39 Freq: Status: Active Protocol: Document 10/18/20 07:31 MB (Rec: 10/18/20 08:16 MB [id number]) Out-Patient Physical Therapy Visit Information Visit Information Visit Type Treatment Note Visit Note Medicare Visit Start Time 07:31 Visit Stop Time 08:15 Total Visit Minutes 44 Visit Number 5 Precautions Precautions Hemochromatosis, neuropathy, s /p right ankle fusion, cervical spinal changes PT-OP-B Current Condition Start: 09/24/20 14:39 Freq: Status: Active Protocol: Document 09/28/20 14:33 MB (Rec: 09/28/20 14:47 MB [id number]) Current Condition History of Current Condition Onset Date Years Current Complaints Radicular numbness down right arm History of Current Condition Pt presents with long history of neck pain and decreased ROM . He has arthritis. He recently finished OPPT course for right foot and balance and postural changes and self STM was initiated at that time. Pt saw his PCP about neck pain and radicular symptoms down his right arm to his dorsal thumb. He has electrical buzzing in left shoulder blade . His biggest complaint is electrical numbness down the arm and hand. He returned to neurologist after completely OPPT for balance and she was glad he is restarting PT for his neck d/ t radicular symptoms. Pt is left-headed except for writing. PMH includes hemochromatosis, neuropathy, a-fib, L THR, R ankle fusion, DDD with changes in cervical and lumbar spine. Pt reports 2/10 posterior neck pain, 1/10 LBP between SI joints, 1/10 pain right ankle. Pt sleeps on his back or side . He has a small contour pillow. He has a CPAP. Prior Treatments and Tests Cervical spinal injections, PT for right foot/balance recently Treatment Goals Patient/Caregiver Goals Help decrease right arm symptoms PT-OP-C Subjective Start: 09/24/20 14:39 Freq: Status: Active Protocol: Document 10/18/20 07:31 MB (Rec: 10/18/20 08:16 MB [id number]) OP-PT Subjective Patient Comments Patient Comments Pt thinks that the Counterstrain is helpful. He does think that he will end up having surgery on his neck. PT-OP-H Neuro Start: 09/24/20 14:39 Freq: Status: Active Protocol: Document 09/28/20 14:33 MB (Rec: 09/28/20 15:45 MB [id number]) Sensation Evaluation Gross Sensation Gross Sensation WNL Comments Summary Comments Pt reports he often has numbness down his right arm to his thumb and this is the most problematic thing for him . He is standing upright with head in neutral when PT checks him today. Known radiculopathy and so PT does not attempt to provoke with cervical testing today. PT-OP-J Posture/Palpation/Skin Start: 09/24/20 14:39 Freq: Status: Active Protocol: Document 09/28/20 14:33 MB (Rec: 09/28/20 15:45 MB [id number]) Posture Evaluation Comments Posture Comments Forward head, rounded shoulder , very limited cervical and thoracic mobility PT-OP-K Range of Motion Start: 09/24/20 14:39 Freq: Status: Active Protocol: Document 09/28/20 14:33 MB (Rec: 09/28/20 15:45 MB [id number]) Cervical Spine Range of Motion Cervical Spine Active Testing Position Standing Flexion 40 Extension 20 Rotation Left 18 Rotation Right 55 Lateral Flexion Left 8 Lateral Flexion Right 10 Shoulder Goniometric Range of Motion Shoulder Left Active Shoulder ROM WFL Yes Testing Position Standing Comments Normal flexion and abduction in standing Right Active Shoulder ROM WFL Yes Testing Position Standing Comments Normal flexion and abduction in standing Wrist Goniometric Range of Motion ROM Limitations Comments Pt does present with decreased B wrist extension and flexion movement in setting of arthritic changes PT-OP-M Strength Start: 09/24/20 14:39 Freq: Status: Active Protocol: Document 09/28/20 14:33 MB (Rec: 09/28/20 15:45 MB [id number]) Shoulder Strength Shoulder Manual Muscle Testing Left Flexion 5 Normal Abduction (C5) 5 Normal External Rotation 5 Normal Internal Rotation 5 Normal Right Flexion 4 Good Abduction (C5) 5 Normal External Rotation 3+ Fair+ Internal Rotation 4 Good Elbow/Forearm Strength Elbow and Forearm Manual Muscle Testing Left Flexion (C6) 5 Normal Extension (C7) 5 Normal Pronation 5 Normal Supination 5 Normal Right Flexion (C6) 5 Normal Extension (C7) 5 Normal Pronation 5 Normal Supination 5 Normal Wrist Strength Wrist Manual Muscle Testing Left Flexion (C7) 5 Normal Extension (C6) 5 Normal Comments In available range Right Flexion (C7) 5 Normal Extension (C6) 5 Normal Comments In available range PT-OP-Q Treatments Start: 09/24/20 14:39 Freq: Status: Active Protocol: Document 10/18/20 07:31 MB (Rec: 10/18/20 08:16 MB [id number]) Therapeutic Exercises Standing Exercises Pect, hip flexor and QL stretch Side bilateral Comments 30 sec hold each position, modify as needed Manual Therapy Treatment Other Other Manual Treatments Pt agrees to Counterstrain to assess and treat fascial tension and pt presents with tension in the following fascial systems: spinal vein extension LV, ALL, spinal medullary veins, and PT treats stacks in these systems. PT-OP-T Assessment and Plan Start: 09/24/20 14:39 Freq: Status: Active Protocol: Document 10/18/20 07:31 MB (Rec: 10/18/20 08:16 MB [id number]) Physical Therapy Assessment Rehab Potential Rehabilitation Potential Fair Evaluation Complexity Number of Personal Factors/Comorbidities 1-2 Number of Body Systems Impaired 1-2 Clinical Presentation at Evaluation Evolving Impairments Impairments Activity Tolerance,Balance, Pain,Posture,ROM,Sensation, Soft Tissue Mobility,Strength Goals 3 Care Home Goal (LTG) Pt will perform progressive HEP with I including postural, cervical and thoracic mobility, breathing, ROM, balance and strengthening exercises to improve cervical range and decrease paresthesias by 11/28/2020. LTG Duration 8 weeks 2 Care Home Goal (LTG) Pt will present with improved active cervical ROM to at least 25 deg extension, 25 deg left rotation, B SB 15 deg to improve functional head turns with driving and gait by 11/28. LTG Duration 8 weeks 1 Care Home Goal (LTG) Pt will present with an improved QuickDASH score to no more than 5% impairment to reflect improved functional mobility and less numbness by 11/28/2020. LTG Duration 8 weeks Assessment Summary Assessment Pt responds well to Counterstrain today. He has ongoing lymphatic fascial tension. Con't manual work and progressive flexibility. Physical Therapy Plan Frequency and Duration Frequency of Treatment 2x/Week Duration of Treatment 8 weeks Plan of Care Start Date 09/28/20 Plan of Care End Date 11/29/20 Therapeutic Interventions Therapeutic Interventions Balance Training,Canalithic Repositioning,Coordination Training,Home Exercise Program ,Joint Mobilizations,Manual Therapy,Neuromuscular Re- education,Patient/Caregiver Education,Self-Care/Home Management,Soft Tissue Mobilization,Taping, Therapeutic Exercises Modalities Cold Pack/Ice Massage,Electric Stimulation,Hot Packs, Ultrasound Next Visit Focus/Plan Next Note Type Treatment Note Next Visit Plan Consider more Counterstrain, core progression
--- NOTE | 2020-10-21 08:13 | PT.OTN ---
Current Diagnoses Spondylopathy, unspecified (10/21/20) Physical Therapy Treatment Note PT-OP-A Visit Information Start: 09/24/20 14:39 Freq: Status: Active Protocol: Document 10/21/20 07:30 MB (Rec: 10/21/20 08:13 MB [id number]) Out-Patient Physical Therapy Visit Information Visit Information Visit Type Treatment Note Visit Note Medicare Visit Start Time 07:30 Visit Stop Time 08:10 Total Visit Minutes 40 Visit Number 6 Precautions Precautions Hemochromatosis, neuropathy, s /p right ankle fusion, cervical spinal changes PT-OP-B Current Condition Start: 09/24/20 14:39 Freq: Status: Active Protocol: Document 09/28/20 14:33 MB (Rec: 09/28/20 14:47 MB [id number]) Current Condition History of Current Condition Onset Date Years Current Complaints Radicular numbness down right arm History of Current Condition Pt presents with long history of neck pain and decreased ROM . He has arthritis. He recently finished OPPT course for right foot and balance and postural changes and self STM was initiated at that time. Pt saw his PCP about neck pain and radicular symptoms down his right arm to his dorsal thumb. He has electrical buzzing in left shoulder blade . His biggest complaint is electrical numbness down the arm and hand. He returned to neurologist after completely OPPT for balance and she was glad he is restarting PT for his neck d/ t radicular symptoms. Pt is left-headed except for writing. PMH includes hemochromatosis, neuropathy, a-fib, L THR, R ankle fusion, DDD with changes in cervical and lumbar spine. Pt reports 2/10 posterior neck pain, 1/10 LBP between SI joints, 1/10 pain right ankle. Pt sleeps on his back or side . He has a small contour pillow. He has a CPAP. Prior Treatments and Tests Cervical spinal injections, PT for right foot/balance recently Treatment Goals Patient/Caregiver Goals Help decrease right arm symptoms PT-OP-C Subjective Start: 09/24/20 14:39 Freq: Status: Active Protocol: Document 10/21/20 07:30 MB (Rec: 10/21/20 08:13 MB [id number]) OP-PT Subjective Patient Comments Patient Comments I have no way to do the last stretch on the boat. PT-OP-H Neuro Start: 09/24/20 14:39 Freq: Status: Active Protocol: Document 09/28/20 14:33 MB (Rec: 09/28/20 15:45 MB [id number]) Sensation Evaluation Gross Sensation Gross Sensation WNL Comments Summary Comments Pt reports he often has numbness down his right arm to his thumb and this is the most problematic thing for him . He is standing upright with head in neutral when PT checks him today. Known radiculopathy and so PT does not attempt to provoke with cervical testing today. PT-OP-J Posture/Palpation/Skin Start: 09/24/20 14:39 Freq: Status: Active Protocol: Document 09/28/20 14:33 MB (Rec: 09/28/20 15:45 MB [id number]) Posture Evaluation Comments Posture Comments Forward head, rounded shoulder , very limited cervical and thoracic mobility PT-OP-K Range of Motion Start: 09/24/20 14:39 Freq: Status: Active Protocol: Document 09/28/20 14:33 MB (Rec: 09/28/20 15:45 MB [id number]) Cervical Spine Range of Motion Cervical Spine Active Testing Position Standing Flexion 40 Extension 20 Rotation Left 18 Rotation Right 55 Lateral Flexion Left 8 Lateral Flexion Right 10 Shoulder Goniometric Range of Motion Shoulder Left Active Shoulder ROM WFL Yes Testing Position Standing Comments Normal flexion and abduction in standing Right Active Shoulder ROM WFL Yes Testing Position Standing Comments Normal flexion and abduction in standing Wrist Goniometric Range of Motion ROM Limitations Comments Pt does present with decreased B wrist extension and flexion movement in setting of arthritic changes PT-OP-M Strength Start: 09/24/20 14:39 Freq: Status: Active Protocol: Document 09/28/20 14:33 MB (Rec: 09/28/20 15:45 MB [id number]) Shoulder Strength Shoulder Manual Muscle Testing Left Flexion 5 Normal Abduction (C5) 5 Normal External Rotation 5 Normal Internal Rotation 5 Normal Right Flexion 4 Good Abduction (C5) 5 Normal External Rotation 3+ Fair+ Internal Rotation 4 Good Elbow/Forearm Strength Elbow and Forearm Manual Muscle Testing Left Flexion (C6) 5 Normal Extension (C7) 5 Normal Pronation 5 Normal Supination 5 Normal Right Flexion (C6) 5 Normal Extension (C7) 5 Normal Pronation 5 Normal Supination 5 Normal Wrist Strength Wrist Manual Muscle Testing Left Flexion (C7) 5 Normal Extension (C6) 5 Normal Comments In available range Right Flexion (C7) 5 Normal Extension (C6) 5 Normal Comments In available range PT-OP-Q Treatments Start: 09/24/20 14:39 Freq: Status: Active Protocol: Document 10/21/20 07:30 MB (Rec: 10/21/20 08:13 MB [id number]) Therapeutic Exercises Supine Exercises Core progression Supine Exercise Name Abd drawing in set, lumbar rotation, HS, mini march, knee fall out Side bilateral Comments 10 reps slowly Diaphragm breathing Comments 5 reps slowly with cues Pect stretch Side bilateral Comments Head and neck supported and knees bent Manual Therapy Treatment Other Other Manual Treatments Pt prone: STM cervical paraspinals and thoracic paraspinals, gentle rib recoil and PA mobs thoracic spine, scapular mobs, B upper traps STM PT-OP-T Assessment and Plan Start: 09/24/20 14:39 Freq: Status: Active Protocol: Document 10/21/20 07:30 MB (Rec: 10/21/20 08:13 MB [id number]) Physical Therapy Assessment Rehab Potential Rehabilitation Potential Fair Evaluation Complexity Number of Personal Factors/Comorbidities 1-2 Number of Body Systems Impaired 1-2 Clinical Presentation at Evaluation Evolving Impairments Impairments Activity Tolerance,Balance, Pain,Posture,ROM,Sensation, Soft Tissue Mobility,Strength Goals 3 Agricultural And Forestry Supervisor Goal (LTG) Pt will perform progressive HEP with I including postural, cervical and thoracic mobility, breathing, ROM, balance and strengthening exercises to improve cervical range and decrease paresthesias by 11/28/2020. LTG Duration 8 weeks 2 Care Home Goal (LTG) Pt will present with improved active cervical ROM to at least 25 deg extension, 25 deg left rotation, B SB 15 deg to improve functional head turns with driving and gait by 11/28. LTG Duration 8 weeks 1 Care Home Goal (LTG) Pt will present with an improved QuickDASH score to no more than 5% impairment to reflect improved functional mobility and less numbness by 11/28/2020. LTG Duration 8 weeks Assessment Summary Assessment Initiated pect stretch, diaphragm breathing and core exercises in hook lying today. Anticipate one more manual treatment and then prepare for d/c. PT has been limited by spinal changes. Physical Therapy Plan Frequency and Duration Frequency of Treatment 2x/Week Duration of Treatment 8 weeks Plan of Care Start Date 09/28/20 Plan of Care End Date 11/29/20 Therapeutic Interventions Therapeutic Interventions Balance Training,Canalithic Repositioning,Coordination Training,Home Exercise Program ,Joint Mobilizations,Manual Therapy,Neuromuscular Re- education,Patient/Caregiver Education,Self-Care/Home Management,Soft Tissue Mobilization,Taping, Therapeutic Exercises Modalities Cold Pack/Ice Massage,Electric Stimulation,Hot Packs, Ultrasound Next Visit Focus/Plan Next Note Type Treatment Note Next Visit Plan Consider more Counterstrain
--- NOTE | 2020-10-26 08:56 | PT.OTN ---
Current Diagnoses Spondylopathy, unspecified (10/26/20) Physical Therapy Treatment Note PT-OP-A Visit Information Start: 09/24/20 14:39 Freq: Status: Active Protocol: Document 10/26/20 08:16 MB (Rec: 10/26/20 08:47 MB [id number]) Out-Patient Physical Therapy Visit Information Visit Information Visit Type Treatment Note Visit Note Medicare Visit Start Time 08:16 Visit Stop Time 08:56 Total Visit Minutes 40 Visit Number 7 Precautions Precautions Hemochromatosis, neuropathy, s /p right ankle fusion, cervical spinal changes PT-OP-B Current Condition Start: 09/24/20 14:39 Freq: Status: Active Protocol: Document 09/28/20 14:33 MB (Rec: 09/28/20 14:47 MB [id number]) Current Condition History of Current Condition Onset Date Years Current Complaints Radicular numbness down right arm History of Current Condition Pt presents with long history of neck pain and decreased ROM . He has arthritis. He recently finished OPPT course for right foot and balance and postural changes and self STM was initiated at that time. Pt saw his PCP about neck pain and radicular symptoms down his right arm to his dorsal thumb. He has electrical buzzing in left shoulder blade . His biggest complaint is electrical numbness down the arm and hand. He returned to neurologist after completely OPPT for balance and she was glad he is restarting PT for his neck d/ t radicular symptoms. Pt is left-headed except for writing. PMH includes hemochromatosis, neuropathy, a-fib, L THR, R ankle fusion, DDD with changes in cervical and lumbar spine. Pt reports 2/10 posterior neck pain, 1/10 LBP between SI joints, 1/10 pain right ankle. Pt sleeps on his back or side . He has a small contour pillow. He has a CPAP. Prior Treatments and Tests Cervical spinal injections, PT for right foot/balance recently Treatment Goals Patient/Caregiver Goals Help decrease right arm symptoms PT-OP-C Subjective Start: 09/24/20 14:39 Freq: Status: Active Protocol: Document 10/26/20 08:16 MB (Rec: 10/26/20 08:47 MB [id number]) OP-PT Subjective Patient Comments Patient Comments Pt has no new reports. PT-OP-H Neuro Start: 09/24/20 14:39 Freq: Status: Active Protocol: Document 09/28/20 14:33 MB (Rec: 09/28/20 15:45 MB [id number]) Sensation Evaluation Gross Sensation Gross Sensation WNL Comments Summary Comments Pt reports he often has numbness down his right arm to his thumb and this is the most problematic thing for him . He is standing upright with head in neutral when PT checks him today. Known radiculopathy and so PT does not attempt to provoke with cervical testing today. PT-OP-J Posture/Palpation/Skin Start: 09/24/20 14:39 Freq: Status: Active Protocol: Document 09/28/20 14:33 MB (Rec: 09/28/20 15:45 MB [id number]) Posture Evaluation Comments Posture Comments Forward head, rounded shoulder , very limited cervical and thoracic mobility PT-OP-K Range of Motion Start: 09/24/20 14:39 Freq: Status: Active Protocol: Document 09/28/20 14:33 MB (Rec: 09/28/20 15:45 MB [id number]) Cervical Spine Range of Motion Cervical Spine Active Testing Position Standing Flexion 40 Extension 20 Rotation Left 18 Rotation Right 55 Lateral Flexion Left 8 Lateral Flexion Right 10 Shoulder Goniometric Range of Motion Shoulder Left Active Shoulder ROM WFL Yes Testing Position Standing Comments Normal flexion and abduction in standing Right Active Shoulder ROM WFL Yes Testing Position Standing Comments Normal flexion and abduction in standing Wrist Goniometric Range of Motion ROM Limitations Comments Pt does present with decreased B wrist extension and flexion movement in setting of arthritic changes PT-OP-M Strength Start: 09/24/20 14:39 Freq: Status: Active Protocol: Document 09/28/20 14:33 MB (Rec: 09/28/20 15:45 MB [id number]) Shoulder Strength Shoulder Manual Muscle Testing Left Flexion 5 Normal Abduction (C5) 5 Normal External Rotation 5 Normal Internal Rotation 5 Normal Right Flexion 4 Good Abduction (C5) 5 Normal External Rotation 3+ Fair+ Internal Rotation 4 Good Elbow/Forearm Strength Elbow and Forearm Manual Muscle Testing Left Flexion (C6) 5 Normal Extension (C7) 5 Normal Pronation 5 Normal Supination 5 Normal Right Flexion (C6) 5 Normal Extension (C7) 5 Normal Pronation 5 Normal Supination 5 Normal Wrist Strength Wrist Manual Muscle Testing Left Flexion (C7) 5 Normal Extension (C6) 5 Normal Comments In available range Right Flexion (C7) 5 Normal Extension (C6) 5 Normal Comments In available range PT-OP-Q Treatments Start: 09/24/20 14:39 Freq: Status: Active Protocol: Document 10/26/20 08:16 MB (Rec: 10/26/20 08:47 MB [id number]) Manual Therapy Treatment Other Other Manual Treatments Pt agrees to Counterstrain to assess and treat fascial tension and pt presents with tension in the following fascial systems: ALL, spinal medullary and periosteal. PT treats stacks in ALL and spinal medullary and spinal vein extension systems and pt responds well initially. PT-OP-T Assessment and Plan Start: 09/24/20 14:39 Freq: Status: Active Protocol: Document 10/26/20 08:16 MB (Rec: 10/26/20 08:47 MB [id number]) Physical Therapy Assessment Rehab Potential Rehabilitation Potential Fair Evaluation Complexity Number of Personal Factors/Comorbidities 1-2 Number of Body Systems Impaired 1-2 Clinical Presentation at Evaluation Evolving Impairments Impairments Activity Tolerance,Balance, Pain,Posture,ROM,Sensation, Soft Tissue Mobility,Strength Goals 3 Residential Goal (LTG) Pt will perform progressive HEP with I including postural, cervical and thoracic mobility, breathing, ROM, balance and strengthening exercises to improve cervical range and decrease paresthesias by 11/28/2020. LTG Duration 8 weeks 2 Travel Pt Goal (LTG) Pt will present with improved active cervical ROM to at least 25 deg extension, 25 deg left rotation, B SB 15 deg to improve functional head turns with driving and gait by 11/28. LTG Duration 8 weeks 1 Travel Pt Goal (LTG) Pt will present with an improved QuickDASH score to no more than 5% impairment to reflect improved functional mobility and less numbness by 11/28/2020. LTG Duration 8 weeks Assessment Summary Assessment Counterstrain today improves cervical and thoracic fascial mobility. Overall, his presentation has been challenging in setting of spinal changes. Anticipate d/c next treatment date and recommend spinal specialist consult, diagnostics for cervical spine. Physical Therapy Plan Frequency and Duration Frequency of Treatment 2x/Week Duration of Treatment 8 weeks Plan of Care Start Date 09/28/20 Plan of Care End Date 11/29/20 Therapeutic Interventions Therapeutic Interventions Balance Training,Canalithic Repositioning,Coordination Training,Home Exercise Program ,Joint Mobilizations,Manual Therapy,Neuromuscular Re- education,Patient/Caregiver Education,Self-Care/Home Management,Soft Tissue Mobilization,Taping, Therapeutic Exercises Modalities Cold Pack/Ice Massage,Electric Stimulation,Hot Packs, Ultrasound Next Visit Focus/Plan Next Note Type Discharge Summary
--- NOTE | 2020-10-28 13:18 | PT.OTN ---
Current Diagnoses Spondylopathy, unspecified (10/28/20) Physical Therapy Treatment Note PT-OP-A Visit Information Start: 09/24/20 14:39 Freq: Status: Active Protocol: Document 10/28/20 08:17 MB (Rec: 10/28/20 08:34 MB [id number]) Out-Patient Physical Therapy Visit Information Visit Information Visit Type Treatment Note Visit Note Medicare Visit Start Time 08:17 Visit Stop Time 09:00 Total Visit Minutes 43 Visit Number 8 Precautions Precautions Hemochromatosis, neuropathy, s /p right ankle fusion, cervical spinal changes PT-OP-B Current Condition Start: 09/24/20 14:39 Freq: Status: Active Protocol: Document 09/28/20 14:33 MB (Rec: 09/28/20 14:47 MB [id number]) Current Condition History of Current Condition Onset Date Years Current Complaints Radicular numbness down right arm History of Current Condition Pt presents with long history of neck pain and decreased ROM . He has arthritis. He recently finished OPPT course for right foot and balance and postural changes and self STM was initiated at that time. Pt saw his PCP about neck pain and radicular symptoms down his right arm to his dorsal thumb. He has electrical buzzing in left shoulder blade . His biggest complaint is electrical numbness down the arm and hand. He returned to neurologist after completely OPPT for balance and she was glad he is restarting PT for his neck d/ t radicular symptoms. Pt is left-headed except for writing. PMH includes hemochromatosis, neuropathy, a-fib, L THR, R ankle fusion, DDD with changes in cervical and lumbar spine. Pt reports 2/10 posterior neck pain, 1/10 LBP between SI joints, 1/10 pain right ankle. Pt sleeps on his back or side . He has a small contour pillow. He has a CPAP. Prior Treatments and Tests Cervical spinal injections, PT for right foot/balance recently Treatment Goals Patient/Caregiver Goals Help decrease right arm symptoms PT-OP-C Subjective Start: 09/24/20 14:39 Freq: Status: Active Protocol: Document 10/28/20 08:17 MB (Rec: 10/28/20 08:34 MB [id number]) OP-PT Subjective Patient Comments Patient Comments Pt reports anterior right shoulder/clavicular pain today . He is walking stiffly. PT-OP-H Neuro Start: 09/24/20 14:39 Freq: Status: Active Protocol: Document 09/28/20 14:33 MB (Rec: 09/28/20 15:45 MB [id number]) Sensation Evaluation Gross Sensation Gross Sensation WNL Comments Summary Comments Pt reports he often has numbness down his right arm to his thumb and this is the most problematic thing for him . He is standing upright with head in neutral when PT checks him today. Known radiculopathy and so PT does not attempt to provoke with cervical testing today. PT-OP-J Posture/Palpation/Skin Start: 09/24/20 14:39 Freq: Status: Active Protocol: Document 09/28/20 14:33 MB (Rec: 09/28/20 15:45 MB [id number]) Posture Evaluation Comments Posture Comments Forward head, rounded shoulder , very limited cervical and thoracic mobility PT-OP-K Range of Motion Start: 09/24/20 14:39 Freq: Status: Active Protocol: Document 09/28/20 14:33 MB (Rec: 09/28/20 15:45 MB [id number]) Cervical Spine Range of Motion Cervical Spine Active Testing Position Standing Flexion 40 Extension 20 Rotation Left 18 Rotation Right 55 Lateral Flexion Left 8 Lateral Flexion Right 10 Shoulder Goniometric Range of Motion Shoulder Left Active Shoulder ROM WFL Yes Testing Position Standing Comments Normal flexion and abduction in standing Right Active Shoulder ROM WFL Yes Testing Position Standing Comments Normal flexion and abduction in standing Wrist Goniometric Range of Motion ROM Limitations Comments Pt does present with decreased B wrist extension and flexion movement in setting of arthritic changes PT-OP-M Strength Start: 09/24/20 14:39 Freq: Status: Active Protocol: Document 09/28/20 14:33 MB (Rec: 09/28/20 15:45 MB [id number]) Shoulder Strength Shoulder Manual Muscle Testing Left Flexion 5 Normal Abduction (C5) 5 Normal External Rotation 5 Normal Internal Rotation 5 Normal Right Flexion 4 Good Abduction (C5) 5 Normal External Rotation 3+ Fair+ Internal Rotation 4 Good Elbow/Forearm Strength Elbow and Forearm Manual Muscle Testing Left Flexion (C6) 5 Normal Extension (C7) 5 Normal Pronation 5 Normal Supination 5 Normal Right Flexion (C6) 5 Normal Extension (C7) 5 Normal Pronation 5 Normal Supination 5 Normal Wrist Strength Wrist Manual Muscle Testing Left Flexion (C7) 5 Normal Extension (C6) 5 Normal Comments In available range Right Flexion (C7) 5 Normal Extension (C6) 5 Normal Comments In available range PT-OP-Q Treatments Start: 09/24/20 14:39 Freq: Status: Active Protocol: Document 10/28/20 08:17 MB (Rec: 10/28/20 13:18 MB [id number]) Therapeutic Exercises Other Exercises Answered all HEP exercises Comments Reviewed all his exercises verbally in preparation for d/ c Manual Therapy Treatment Other Other Manual Treatments Pt hook lying: MWM and positional release B pects, greater tension and work on the right, B upper traps and left anterior scalene MWM with PT holding TrP and pt performing active ROM for MWM. Recoil technique for sternocostal and sternoclavicular joints. PT-OP-T Assessment and Plan Start: 09/24/20 14:39 Freq: Status: Active Protocol: Document 10/28/20 08:17 MB (Rec: 10/28/20 08:34 MB [id number]) Physical Therapy Assessment Rehab Potential Rehabilitation Potential Fair Evaluation Complexity Number of Personal Factors/Comorbidities 1-2 Number of Body Systems Impaired 1-2 Clinical Presentation at Evaluation Evolving Impairments Impairments Activity Tolerance,Balance, Pain,Posture,ROM,Sensation, Soft Tissue Mobility,Strength Goals 3 Sem Manager Goal (LTG) Pt will perform progressive HEP with I including postural, cervical and thoracic mobility, breathing, ROM, balance and strengthening exercises to improve cervical range and decrease paresthesias by 11/28/2020. 10/28/20: Pt is performing theraband exercises, upper traps ball massage, balance exercises, crab walking and backwards walking with band, luck cat MWM with racquet ball , intrascapular massage with racquet ball LTG Duration Met 2 Mcc Goal (LTG) Pt will present with improved active cervical ROM to at least 25 deg extension, 25 deg left rotation, B SB 15 deg to improve functional head turns with driving and gait by 11/28. 10/28/20: AROM in standin deg flexion, 19 deg extension, 13 deg right SB, 9 deg left SB, rotation right 55 deg, rotation left 30 deg LTG Duration Partially met 1 Sem Manager Goal (LTG) Pt will present with an improved QuickDASH score to no more than 5% impairment to reflect improved functional mobility and less numbness by 11/28/2020. 10/28/20: QuickDASH score not met: reflects 18.18% impairment LTG Duration Not met Assessment Summary Assessment Pt has progressed towards ROM and HEP goals since starting PT. His QuickDASH score has not progressed towards goal. Anatomical changes were a barrier to PT gains and PT reviews c-spine x-ray which reveals C5-6, C6-7 mod severe degenerative disc disease, OA and foraminal stenosis. Pt has maximized PT potential. Will d/c PT and recommend follow-up with provider and spinal specialist.
== END 2020-10-28 13:20 | disposition home or self-care (01) ==
LOC: PHYS 08:15
PROVIDERS: Family Provider Nurse Practitioner Family; PCP Nurse Practitioner Family; Referring Provider Nurse Practitioner Family; Visit Provider Nurse Practitioner Family
DX: M48.9 Spondylopathy, unspecified (principal)
CPT/HCPCS: 97110; 97140; 97161

== ENCOUNTER → 2020-11-22 08:53 | Outpatient (CLI) | payer MEDICARE, OTHER, SELFPAY ==
[2020-11-22 10:44] LABS: Add Manual Diff / Slide Review NO; Basophils Absolute Auto 100 /uL (0-100); Basophils Percent Auto 1.3 % (0-2); Eosinophils Absolute Auto 100 /uL (0-450); Eosinophils Percent Auto 1.8 % (2-4); Hematocrit 46.3 % (41-53); Hemoglobin 15.8 g/dL (13.5-17.5); Lymphocytes Absolute Auto 1300 /uL (1100-4500); Lymphocytes Percent Auto 22.7 % (25-40); Mean Corpuscular HGB Conc 34.1 % (30-36); Mean Corpuscular Hemoglobin 31.1 PG (26-34); Mean Corpuscular Volume 91.1 fL (80-100); Monocytes Absolute Auto 500 /uL (0-900); Monocytes Percent Auto 8.2 % (3-14); Neutrophils Absolute Auto 3800 /uL (1500-7000); Platelet Count 202 X10^3/uL (150-400); Red Blood Cell Count 5.09 X10^6/uL (4.5-5.9); Red Cell Distribution Width 13.4 % (11.6-14.8); White Blood Cell Count 5.8 X10^3/uL (4.5-11.0)
[2020-11-22 11:09] LABS: Blood Urea Nitrogen 15 mg/dL (9-20); Calcium 9.7 mg/dL (8.4-10.2); Carbon Dioxide 28 mmol/L (22-32); Chloride 105 mmol/L (98-107); Cholesterol 157 mg/dL (140-199); Estimated Glomerular Filt Rate > 60.0 mL/min (>60); Glucose 107 mg/dL (80-110); HDL Cholesterol 70 mg/dL (40-60); HEMOLYSIS < 15 (0-50); LDL Cholesterol Calculated 72 mg/dL (<100); Potassium 4.3 mmol/L (3.4-5.1); Sodium 141 mmol/L (137-145); Triglycerides 73 mg/dL (35-150)
== END ==
PROVIDERS: Family Provider Nurse Practitioner Family; PCP Nurse Practitioner Family; Referring Provider Internal Medicine Cardiovascular Disease; Visit Provider Internal Medicine Cardiovascular Disease
DX: I10 Essential (primary) hypertension (principal); I48.0 Paroxysmal atrial fibrillation
CPT/HCPCS: 36415; 80048; 80061; 85025

== ENCOUNTER → 2021-09-02 07:13 | Outpatient (CLI) | payer MEDICARE, OTHER, SELFPAY ==
[2021-09-02 08:51] LABS: Hematocrit 45.2 % (41-53); Hemoglobin 15.4 g/dL (13.5-17.5); Mean Corpuscular HGB Conc 34.1 % (30-36); Mean Corpuscular Hemoglobin 30.6 PG (26-34); Mean Corpuscular Volume 89.6 fL (80-100); Platelet Count 187 X10^3/uL (150-400); Red Blood Cell Count 5.04 X10^6/uL (4.5-5.9); Red Cell Distribution Width 13.7 % (11.6-14.8); White Blood Cell Count 5.7 X10^3/uL (4.5-11.0)
[2021-09-02 09:11] LABS: Alanine Aminotransferase 9 IU/L (<50); Albumin 4.2 g/dL (3.5-5.0); Albumin Globulin Ratio 1.8 (1.0-2.8); Alkaline Phosphatase 68 U/L (38-126); Aspartate Aminotransferase 22 IU/L (17-59); BUN Creatinine Ratio 21.2 (6-22); Bilirubin Total 0.6 mg/dL (0.2-1.3); Blood Urea Nitrogen 18 mg/dL (9-20); Calcium 9.3 mg/dL (8.4-10.2); Carbon Dioxide 29 mmol/L (22-32); Chloride 105 mmol/L (98-107); Cholesterol 155 mg/dL (140-199); Estimated Glomerular Filt Rate > 60.0 mL/min (>60); Globulin 2.3 g/dL (1.7-4.1); Glucose 113 mg/dL (80-110); HDL Cholesterol 68 mg/dL (40-60); HEMOLYSIS < 15 (0-50); LDL Cholesterol Calculated 64 mg/dL (<100); Potassium 4.2 mmol/L (3.4-5.1); Sodium 140 mmol/L (137-145); Total Protein 6.5 g/dL (6.3-8.2); Triglycerides 116 mg/dL (35-150)
[2021-09-02 09:37] LABS: Prostate Specific Antigen 0.829 ng/mL (0.10-4.00)
[2021-09-02 15:45] LABS: Hemoglobin A1C% w Est Avg Glu 5.6 % (4.0-6.0)
== END ==
PROVIDERS: Family Provider Nurse Practitioner Family; PCP Nurse Practitioner Family; Referring Provider Nurse Practitioner Family; Visit Provider Nurse Practitioner Family
DX: I10 Essential (primary) hypertension (principal); Z12.5 Encounter for screening for malignant neoplasm of prostate; Z13.220 Encounter for screening for lipoid disorders; Z00.00 Encounter for general adult medical examination without abnormal findings; Z13.1 Encounter for screening for diabetes mellitus
CPT/HCPCS: 36415; 80053; 80061; 83036; 84153; 85027; G0103

== ENCOUNTER 2021-11-13 20:27 | Emergency (ER) | payer MEDICARE, OTHER, SELFPAY ==
[2021-11-13 20:31] VITALS: BP 163/77; PULSE 68; RESP 18; TEMP 36.6; O2SAT 96
[2021-11-13 20:32] VITALS: PULSE 66; RESP 27; O2SAT 96
[2021-11-13 20:33] VITALS: BP 163/77; PULSE 68; RESP 25; O2SAT 96
--- NOTE | 2021-11-13 20:33 | DI.RAD.S_ITS ---
PROCEDURE: XR CHEST 1V INDICATIONS: chest pain TECHNIQUE: One view of the chest was acquired. COMPARISON: None. FINDINGS: Surgical changes and devices: None. Lungs and pleura: Lungs are clear. No pleural effusions or pneumothorax. Mediastinum: Mediastinal contours appear within normal limits. Heart size is normal. Bones and chest wall: No suspicious bony lesions. Overlying soft tissues appear unremarkable. IMPRESSION: 1. No acute cardiopulmonary disease. Dictated by: Reese Mcwilliams M.D. on 11/13/2021 at 21:41 Approved by: Reese Mcwilliams M.D. on 11/13/2021 at 21:43
--- NOTE | 2021-11-13 20:50 | PC.NURSE ---
pt c/o fluttering in chest, has had a-fib before states he could tell when he started feeling the fluttering, denies any c/p
[2021-11-13 20:56] LABS: Add Manual Diff / Slide Review NO; Basophils Absolute Auto 100 /uL (0-100); Basophils Percent Auto 0.7 % (0-2); Eosinophils Absolute Auto 200 /uL (0-450); Hematocrit 45.3 % (41-53); Hemoglobin 15.6 g/dL (13.5-17.5); Lymphocytes Absolute Auto 2100 /uL (1100-4500); Lymphocytes Percent Auto 22.6 % (25-40); Mean Corpuscular HGB Conc 34.4 % (30-36); Mean Corpuscular Hemoglobin 30.7 PG (26-34); Mean Corpuscular Volume 89.4 fL (80-100); Monocytes Absolute Auto 800 /uL (0-900); Monocytes Percent Auto 8.8 % (3-14); Neutrophils Absolute Auto 6200 /uL (1500-7000); Neutrophils Percent Auto 65.9 % (50-75); Platelet Count 192 X10^3/uL (150-400); Red Blood Cell Count 5.07 X10^6/uL (4.5-5.9); Red Cell Distribution Width 13.2 % (11.6-14.8); White Blood Cell Count 9.4 X10^3/uL (4.5-11.0)
[2021-11-13 21:00] VITALS: BP 140/66; PULSE 60; RESP 13; O2SAT 94
--- NOTE | 2021-11-13 21:06 | ED_ITS ---
HPI - Arrhythmia/Palpitations General Chief Complaint: Arrhythmia/Palpitations Stated Complaint: Thinks A-fib episode Time Seen by Provider: 11/13/21 20:37 Source: patient Mode of arrival: Ambulatory History of Present Illness HPI narrative: 66-year-old male former smoker with history of atrial fibrillation on anticoagulation presents with a chief complaint of a brief episode in a rhythmic at that started about 30 minutes prior to his arrival. He had been in his normal state of health up until this episode and denies any change in me dications or diet. He does state that he was slightly more active than normal today as he was preparing his boat for a long journey in the near future. 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 His symptoms included only palpitations and feeling a bit ?weird?, he denies any dizziness, weakness or lightheadedness. He denies chest pressure, pain or breathlessness. He has had no nausea, vomiting or diarrhea. He denies any significant alcohol, nicotine or caffeine. His local loan and credit manager is Dr. Osuna Related Data Home Medications Medication Instructions Recorded Confirmed cholecalciferol (vitamin D3) 25 1,000 unit PO BID cap 06/03/19 10/31/21 mcg (1,000 unit) capsule multivitamin 1 tab PO DAILY 06/03/19 10/31/21 propafenone 325 mg 325 mg PO BID cap 06/03/19 10/31/21 capsule,extended release 12 hr diltiazem HCl 420 mg capsule,24 420 mg PO QAM 09/15/19 10/31/21 hr,extended release apixaban 5 mg tablet (Eliquis) 5 mg PO BID 09/17/19 10/31/21 losartan 100 mg tablet 100 mg PO DAILY 02/26/20 10/31/21 Previous Rx's Medication Instructions Recorded gabapentin 600 mg tablet 600 mg PO TID #270 tab 10/31/21 hydrocodone 5 mg-acetaminophen 325 1 tab PO Q6H PRN #8 tab 10/31/21 mg tablet Allergies Allergy/AdvReac Type Severity Reaction Status Date / Time Penicillins Allergy Mild Hives, Verified 10/31/21 10:46 swelling Review of Systems Review of Systems Narrative: GENERAL: Denies chills, fatigue, malaise, fever, sweats. HEENT: Denies sinus pain, ear pain, sore throat, difficulty swallowing, dizziness. RESPIRATORY: Denies dyspnea, cough, wheezing, hemoptysis, sputum. CARDIOVASCULAR: See HPI GASTROINTESTINAL: Denies nausea, vomiting, abdominal pain, diarrhea, constipation, melena. : Denies dysuria, frequency, incontinence, hematuria, urinary retention. MUSCULOSKELETAL: denies weakness, joint pain, or bony pain SKIN: Denies rash, skin lesions, or other NEUROLOGIC: Denies weakness, headache, numbness, change in speech, confusion, seizures, incoordination. PSYCHIATRIC: No concerning psychosocial issues. 12 point review of systems is negative except for those stated above Patient History Medical History Ankle pain (~2001) Aortic ectasia, abdominal (07/2019) Atrial fibrillation (2004) Balance problem (2016) Cervical spine disease (~2007) Chronic back pain (~1993) Degenerative joint disease (DJD) of lumbar spine (~1994) Fractures (~1969) GERD (gastroesophageal reflux disease) (2004) GI bleeding (~2002) Hearing loss Hemochromatosis (2011) History of melanoma in situ (2016) History of smoking 10-25 pack years Hypertension (1999) Impaired fasting blood sugar Medicare annual wellness visit, subsequent (10/11/21) Melanoma (~2016) Mumps (~1959) Positive PPD (~1994) Rubella (~1960) Shoulder pain (~2018) Sleep apnea (~2008) Vision disorder Surgical History Anesthesia History of ankle fusion (~01/2013) History of arthroscopy of left knee (~01/2014) History of inguinal hernia repair History of left hip replacement (~2008) History of tonsillectomy (~1959) Family History Father History of heart disease Congestive heart failure Mother History of heart disease Congestive heart failure Brother Hypertension Grandfather History of heart disease Congestive heart failure Grandmother No problems noted. Grandfather Kidney disease Grandmother Aneurysm Social History household members: spouse Smoking Status: Former smoker Tobacco: How many years used: 20 second hand exposure: No alcohol intake: never substance use type: does not use, former substance user (Quit all listed in 1983.), marijuana, crack/cocaine and amphetamines Smoking Status: Former smoker Substance Use Type: does not use Exam Narrative Exam Narrative: GENERAL: [66] year old patient appears stated age. Well-developed patient, in mild distress. HEAD: Atraumatic. Normocephalic. EYES: Pupils equal round and reactive. Extraocular motions intact. No scleral icterus. No injection or drainage. ENT: Nose without bleeding, purulent drainage. Throat without erythema, tonsillar hypertrophy or exudate. Airway patent. NECK: Trachea midline. Non tender CARDIOVASCULAR: Regular rate and rhythm without murmurs, gallops, or rubs. RESPIRATORY: Clear to auscultation. Breath sounds equal bilaterally. No wheezes, rales, or rhonchi. GASTROINTESTINAL: Abdomen soft, non-tender, nondistended. EXTREMITIES: No edema or joint tenderness. BACK: Nontender without deformity or crepitance. No flank tenderness. NEURO: AOx3. SKIN: No rash or erythema of visible areas Initial Vital Signs Initial Vital Signs: Vital Signs Temperature 97.9 F 11/13/21 20:31 Pulse Rate 68 11/13/21 20:31 Respiratory Rate 18 11/13/21 20:31 Blood Pressure 163/77 H 11/13/21 20:31 Pulse Oximetry 96 11/13/21 20:31 Course Orders Ordered: ED Orders 11/13/21 20:33 XR chest 1V Stat EKG-12 Lead Stat 11/13/21 20:40 Complete Blood Count AUTO DIFF Stat Comprehensive Metabolic Panel Stat Lipase Stat Magnesium Stat Troponin & CK Cardiac Panel Stat Vital Signs Vital signs: Vital Signs - 8 hr 11/13/21 20:31 11/13/21 20:32 11/13/21 20:33 Temperature 97.9 F Pulse Rate 68 66 68 Respiratory Rate 18 27 H 25 H Blood Pressure 163/77 H 163/77 H Pulse Oximetry 96 96 96 11/13/21 21:00 11/13/21 21:30 Temperature Pulse Rate 60 59 L Respiratory Rate 13 13 Blood Pressure 140/66 123/58 L Pulse Oximetry 94 93 MDM - Arrhythmia/Palpitations Lab Data Result diagrams: 11/13/21 20:40 11/13/21 20:40 Labs: Lab Results 11/13/21 11/13/21 Range/Units 20:40 20:40 WBC 9.4 (4.5-11.0) X10^3/uL RBC 5.07 (4.5-5.9) X10^6/uL Hgb 15.6 (13.5-17.5) g/dL Hct 45.3 (41-53) % MCV 89.4 (80-100) fL MCH 30.7 (26-34) PG MCHC 34.4 (30-36) % RDW 13.2 (11.6-14.8) % Plt Count 192 (150-400) X10^3/uL Neut % (Auto) 65.9 (50-75) % Lymph % (Auto) 22.6 L (25-40) % Foard % (Auto) 8.8 (3-14) % Eos % (Auto) 2.0 (2-4) % Baso % (Auto) 0.7 (0-2) % Neut # (Auto) 6200 (5092-9051) /uL Lymph # (Auto) 2100 (0247-1187) /uL Foard # (Auto) 800 (0-900) /uL Eos # (Auto) 200 (0-450) /uL Baso # (Auto) 100 (0-100) /uL Sodium 142 (137-145) mmol/L Potassium 3.7 (3.4-5.1) mmol/L Chloride 106 (98-107) mmol/L Carbon Dioxide 26 (22-32) mmol/L BUN 29 H (9-20) mg/dL Creatinine 0.82 (0.66-1.25) mg/dL Estimated GFR > 60 (>60) mL/min BUN/Creatinine Ratio 35.4 H (6-22) Glucose 108 (80-110) mg/dL Calcium 9.0 (8.4-10.2) mg/dL Magnesium 1.9 (1.6-2.3) mg/dL Total Bilirubin 0.7 (0.2-1.3) mg/dL AST 27 (17-59) IU/L ALT 11 (<50) IU/L Alkaline Phosphatase 65 (38-126) U/L Total Creatine Kinase 130 (55-170) U/L CK-MB (CK-2) 2.08 (<2.37) ng/mL CK-MB (CK-2) Rel Index 1.6 (1.5-5.0) % Troponin I < 0.012 (0.01-0.034) ng/mL Total Protein 7.0 (6.3-8.2) g/dL Albumin 4.3 (3.5-5.0) g/dL Globulin 2.7 (1.7-4.1) g/dL Albumin/Globulin Ratio 1.6 (1.0-2.8) Lipase 97 (23-300) U/L ECG Data Interpretation: EKG is normal sinus rhythm rate [ 67] and free of any signs of ischemia or ectopy. No ST segmental elevation or depression. No T wave inversions MDM Narrative Medical decision making narrative: Patient has very reassuring history and physical exam. EKG shows normal sinus rhythm without evidence of a [place] me a, he has been monitored for an hour and telemetry shows no abnormalities. Labs are reassuring. Extensive discussion with patient and about return precautions, questions have been answered to their apparent satisfaction Discharge Plan Departure Patient Disposition: Home Clinical Impression: Atrial fibrillation Instructions: Arrhythmias Activity Restrictions/Additional Instructions: *You have been diagnosed with [atrial fibrillation, episode resolved. As we discussed your history and physical exam are very reassuring, it sounds like you had a brief episode of atrial fibrillation that thankfully resolved quickly and before we could catch it on EKG. Your labs demonstrate no abnormalities, there is no needed intervention at this time. *What to do: *Please continue to take your regular medications as directed. [ ] New medication prescriptions sent to your pharmacy: [ ] [ ] New medication written as a paper prescription [ ] No new medications given *Please follow up with your loan and credit manager as planned. Let them know you were seen in the Emergency Department and that we ask that you be seen in follow up. We will electronically transmit a record of today's note. Given your upcoming trip it seems reasonable to ask Dr. Osuna his thoughts about any medication options you may have while at sea should you become symptomatic again. *Consider searching Modified Valsalva Maneuver on youtube as it is proven to be an effective non-medicinal option to convert some arrhythmias. *Return to Emergency Department if you should have any new, worsening or concerning symptoms Prescriptions: No Action Eliquis 5 mg tablet 5 mg PO BID 0RF propafenone 325 mg capsule,extended release 12 hr 325 mg PO BID 0RF cholecalciferol (vitamin D3) 1,000 unit capsule 1,000 unit PO BID 0RF multivitamin Tablet 1 tab PO DAILY 0RF diltiazem HCl 420 mg capsule,extended release 24 hr 420 mg PO QAM 0RF hydrocodone-acetaminophen 5-325 mg tablet 1 tab PO Q6H PRN (Reason: pain (scale score 7-10)) Qty: 8 0RF gabapentin 600 mg tablet 600 mg PO TID Qty: 270 3RF losartan 100 mg Tablet 100 mg PO DAILY 0RF Referrals: Mae Osuna MD [Physician] - Hugo Rowland ARNP [Primary Care Provider] -
[2021-11-13 21:12] LABS: Alanine Aminotransferase 11 IU/L (<50); Albumin 4.3 g/dL (3.5-5.0); Albumin Globulin Ratio 1.6 (1.0-2.8); Alkaline Phosphatase 65 U/L (38-126); Aspartate Aminotransferase 27 IU/L (17-59); BUN Creatinine Ratio 35.4 (6-22); Bilirubin Total 0.7 mg/dL (0.2-1.3); Blood Urea Nitrogen 29 mg/dL (9-20); Carbon Dioxide 26 mmol/L (22-32); Chloride 106 mmol/L (98-107); Creatine Kinase 130 U/L (55-170); Estimated Glomerular Filt Rate > 60 mL/min (>60); Globulin 2.7 g/dL (1.7-4.1); Glucose 108 mg/dL (80-110); Lipase 97 U/L (23-300); Magnesium 1.9 mg/dL (1.6-2.3); Potassium 3.7 mmol/L (3.4-5.1); Sodium 142 mmol/L (137-145)
[2021-11-13 21:24] LABS: Troponin I < 0.012 ng/mL (0.01-0.034)
[2021-11-13 21:30] VITALS: BP 123/58; PULSE 59; RESP 13; O2SAT 93
[2021-11-13 22:43] LABS: CKMB % Relative Index 1.6 % (1.5-5.0); Creatine Kinase MB 2.08 ng/mL (<2.37); HEMOLYSIS < 15 (0-50)
== END 2021-11-13 21:45 | disposition home or self-care (01) ==
PROVIDERS: Emergency Provider Emergency Medicine; Family Provider Nurse Practitioner Family; PCP Registered Nurse Diabetes Educator
DX: I48.91 Unspecified atrial fibrillation (principal); Z79.01 Long term (current) use of anticoagulants
CPT/HCPCS: 36415; 71045; 80053; 82550; 82553; 83690; 83735; 84484; 85025; 93005; 93010; 99283; 99284

== ENCOUNTER → 2022-03-30 12:19 | Outpatient (CLI) | payer MEDICARE, OTHER, SELFPAY ==
--- NOTE | 2022-03-30 12:22 | DI.RAD.S_ITS ---
PROCEDURE: XR KNEE RT 3V INDICATIONS: ? abnl s/p fall January with peripatellar pain TECHNIQUE: 3 views of the knee were acquired. COMPARISON: None. FINDINGS: Bones: No fractures or dislocations. No suspicious bony lesions. Tricompartment osteophytes. There is at least some degree of medial and lateral compartment joint space loss. Chondral calcifications. Soft tissues: No joint effusion. No suspicious soft tissue calcifications. IMPRESSION: CPPD arthropathy. No evidence acute bony abnormality of the right knee. If clinical suspicion and/or symptoms persist, further assessment with repeat plain films, or advanced imaging (e.g., CT, MRI, or bone scan) may be helpful for further assessment. Dictated by: Gurdeep Wolf M.D. on 03/30/2022 at 15:40 Approved by: Gurdeep Wolf M.D. on 03/30/2022 at 15:40
== END ==
PROVIDERS: Family Provider Nurse Practitioner Family; PCP Registered Nurse Diabetes Educator; Referring Provider Pediatrics; Visit Provider Pediatrics
DX: M25.561 Pain in right knee (principal); M12.861 Other specific arthropathies, not elsewhere classified, right knee
CPT/HCPCS: 73562

== ENCOUNTER → 2022-04-17 06:59 | Outpatient (CLI) | payer MEDICARE, OTHER, SELFPAY ==
[2022-04-17 07:33] LABS: Add Manual Diff / Slide Review NO; Basophils Absolute Auto 0 /uL (0-100); Basophils Percent Auto 0.4 % (0-2); Eosinophils Absolute Auto 100 /uL (0-450); Eosinophils Percent Auto 1.8 % (2-4); Hematocrit 45.3 % (41-53); Hemoglobin 15.4 g/dL (13.5-17.5); Lymphocytes Absolute Auto 1400 /uL (1100-4500); Lymphocytes Percent Auto 20.9 % (25-40); Mean Corpuscular HGB Conc 33.9 % (30-36); Mean Corpuscular Hemoglobin 30.7 PG (26-34); Mean Corpuscular Volume 90.6 fL (80-100); Monocytes Absolute Auto 500 /uL (0-900); Monocytes Percent Auto 7.2 % (3-14); Neutrophils Absolute Auto 4500 /uL (1500-7000); Neutrophils Percent Auto 69.7 % (50-75); Platelet Count 181 X10^3/uL (150-400); Red Cell Distribution Width 13.6 % (11.6-14.8); White Blood Cell Count 6.5 X10^3/uL (4.5-11.0)
[2022-04-17 07:36] LABS: HEMOLYSIS < 15 (0-50)
[2022-04-17 07:43] LABS: Alanine Aminotransferase 8 IU/L (<50); Albumin Globulin Ratio 1.4 (1.0-2.8); Alkaline Phosphatase 63 U/L (38-126); Aspartate Aminotransferase 20 IU/L (17-59); BUN Creatinine Ratio 24.4 (6-22); Bilirubin Total 0.7 mg/dL (0.2-1.3); Blood Urea Nitrogen 22 mg/dL (9-20); Calcium 9.2 mg/dL (8.4-10.2); Carbon Dioxide 27 mmol/L (22-32); Chloride 104 mmol/L (98-107); Estimated Glomerular Filt Rate > 60 mL/min (>60); Globulin 2.8 g/dL (1.7-4.1); Glucose 112 mg/dL (80-110); Potassium 4.1 mmol/L (3.4-5.1); Sodium 140 mmol/L (137-145); Total Protein 6.8 g/dL (6.3-8.2)
[2022-04-17 07:46] LABS: HEMOLYSIS < 15 (0-50)
[2022-04-17 07:51] LABS: Iron 239 ug/dL (49-181)
[2022-04-17 08:04] LABS: Uric Acid 4.2 mg/dL (3.5-8.5)
[2022-04-17 08:42] LABS: Ferritin 80 ng/mL (18-464)
[2022-04-17 19:32] LABS: Total Iron Binding Capacity 247 ug/dL (261-462); Transferrin 183 mg/dL (206-381)
[2022-04-17 19:51] LABS: Percent Iron Saturation 97 % (20-50)
== END ==
PROVIDERS: Internal Medicine Hematology & Oncology; Family Provider Nurse Practitioner Family; PCP Registered Nurse Diabetes Educator; Referring Provider Pediatrics; Visit Provider Pediatrics
DX: G89.29 Other chronic pain (principal); E83.119 Hemochromatosis, unspecified; M11.20 Other chondrocalcinosis, unspecified site; M25.561 Pain in right knee
CPT/HCPCS: 36415; 80053; 82728; 83540; 83550; 83735; 84443; 84550; 85025

== ENCOUNTER → 2022-05-22 15:39 | Outpatient (CLI) | payer MEDICARE, OTHER, SELFPAY ==
--- NOTE | 2022-05-22 15:46 | DI.US.S_ITS ---
PROCEDURE: US PERIPH VENOUS LOW EXTREM RT INDICATIONS: SWELLING TECHNIQUE: Real-time imaging, as well as color and pulse Doppler interrogation, were performed of the lower extremity deep veins from the inguinal ligament to the popliteal fossa. COMPARISON: None. FINDINGS: The common femoral, femoral and popliteal veins are normally compressible, and free of intraluminal thrombus. Color and pulse Doppler demonstrate normal phasic intraluminal flow. There is normal augmentation response to distal compression maneuver. IMPRESSION: No evidence of right lower extremity DVT. Dictated by: John Gtz M.D. on 05/22/2022 at 16:14 Transcribed by: CHRISTINA on 05/22/2022 at 16:14 Approved by: John Gtz M.D. on 05/22/2022 at 16:17
== END ==
LOC: RAD 15:45 → US 15:45
PROVIDERS: Family Provider Nurse Practitioner Family; PCP Registered Nurse Diabetes Educator; Referring Provider Nurse Practitioner Family; Visit Provider Nurse Practitioner Family
DX: R22.41 Localized swelling, mass and lump, right lower limb (principal)
CPT/HCPCS: 93971

== ENCOUNTER → 2023-02-26 09:50 | Outpatient (CLI) | payer MEDICARE, OTHER, SELFPAY ==
[2023-02-26 10:31] LABS: Amount to Collect in grams 576 g; Amount to Collect in mL 500 mL
[2023-02-26 10:59] LABS: 585 Gram Check PASS; Patient Weight <110 lb YES; Therapeutic Phleb Consent Chec Consent signed @ reg; Zero Check Sebra Scale PASS
[2023-02-26 11:02] LABS: Prediastolic 72 mmHg; Presystolic 127 mmHg; Pulse 62 bpm; Temperature 98.3; Therapeutic Phleb Start Time 1046
[2023-02-26 11:03] LABS: Site of phlebotomy Right antecubital; Therapeutic Phleb Stop Time 1050
[2023-02-26 11:04] LABS: Amount Collected in g 579 g; Amount Collected mL calc 502 mL; Dizziness N; Postdiastolic BP 76 mmHg; Postsystolic BP 132 mmHg; Swelling N; Therapeutic Phleb Comment Y
== END ==
PROVIDERS: Family Provider Nurse Practitioner Family; PCP Registered Nurse Diabetes Educator; Referring Provider Internal Medicine Hematology & Oncology; Visit Provider Internal Medicine Hematology & Oncology
DX: E83.119 Hemochromatosis, unspecified (principal)
CPT/HCPCS: 99195

== ENCOUNTER → 2023-04-03 07:50 | Outpatient (CLI) | payer MEDICARE, OTHER, SELFPAY ==
[2023-04-03 09:41] LABS: Add Manual Diff / Slide Review NO; Basophils Absolute Auto 100 /uL (0-100); Basophils Percent Auto 1.2 % (0-2); Eosinophils Absolute Auto 100 /uL (0-450); Eosinophils Percent Auto 2.6 % (2-4); Hematocrit 45.2 % (41-53); Hemoglobin 15.3 g/dL (13.5-17.5); Lymphocytes Absolute Auto 1200 /uL (1100-4500); Lymphocytes Percent Auto 21.4 % (25-40); Mean Corpuscular HGB Conc 33.8 % (30-36); Mean Corpuscular Hemoglobin 30.9 PG (26-34); Mean Corpuscular Volume 91.4 fL (80-100); Monocytes Absolute Auto 400 /uL (0-900); Monocytes Percent Auto 7.2 % (3-14); Neutrophils Absolute Auto 3700 /uL (1500-7000); Neutrophils Percent Auto 67.6 % (50-75); Platelet Count 202 X10^3/uL (150-400); Red Blood Cell Count 4.94 X10^6/uL (4.5-5.9); Red Cell Distribution Width 13.7 % (11.6-14.8); White Blood Cell Count 5.5 X10^3/uL (4.5-11.0)
[2023-04-03 10:36] LABS: Alanine Aminotransferase 14 IU/L (<50); Albumin Globulin Ratio 1.6 (1.0-2.8); Alkaline Phosphatase 63 U/L (38-126); Aspartate Aminotransferase 22 IU/L (17-59); BUN Creatinine Ratio 18.8 (6-22); Bilirubin Total 0.6 mg/dL (0.2-1.3); Blood Urea Nitrogen 16 mg/dL (9-20); Calcium 9.5 mg/dL (8.4-10.2); Carbon Dioxide 29 mmol/L (22-32); Chloride 103 mmol/L (98-107); Estimated Glomerular Filt Rate > 60 mL/min (>60); Globulin 2.5 g/dL (1.7-4.1); Glucose 115 mg/dL (80-110); HEMOLYSIS < 15 (0-50); Potassium 4.2 mmol/L (3.4-5.1); Sodium 138 mmol/L (137-145); Total Protein 6.5 g/dL (6.3-8.2)
[2023-04-03 12:30] LABS: Creatine Kinase 92 U/L (55-170)
== END ==
PROVIDERS: PCP Registered Nurse Diabetes Educator; Referring Provider Registered Nurse Diabetes Educator; Visit Provider Registered Nurse Diabetes Educator
DX: I10 Essential (primary) hypertension (principal); M11.20 Other chondrocalcinosis, unspecified site; R73.01 Impaired fasting glucose; Z01.818 Encounter for other preprocedural examination
CPT/HCPCS: 36415; 80053; 82550; 85025

== ENCOUNTER 2023-05-28 08:18 | Emergency (ER) | payer MEDICARE, OTHER, SELFPAY ==
[2023-05-28 08:26] VITALS: BP 136/75; PULSE 81; RESP 11; O2SAT 97
[2023-05-28 08:30] VITALS: BP 144/74; PULSE 80; RESP 18; O2SAT 97
--- NOTE | 2023-05-28 08:31 | DI.RAD.S_ITS ---
PROCEDURE: XR CHEST 1V INDICATIONS: chest pain TECHNIQUE: One view of the chest was acquired. COMPARISON: [facility], CR, XR CHEST 1V, 11/13/2021, 20:35. FINDINGS: Surgical changes and devices: None. Lungs and pleura: Lungs are clear. No pleural effusions or pneumothorax. Mediastinum: Mediastinal contours appear normal. Heart size is normal. Bones and chest wall: No suspicious bony lesions. Overlying soft tissues appear unremarkable. IMPRESSION: No acute pulmonary process. Dictated by: Jayla Fisher M.D. on 05/28/2023 at 9:14 Approved by: Jayla Fisher M.D. on 05/28/2023 at 9:15
[2023-05-28 08:35] VITALS: BP 144/74; PULSE 84; RESP 20; TEMP 36.7; O2SAT 97; BMI 31.6
--- NOTE | 2023-05-28 08:41 | ED_ITS ---
HPI - Chest Pain General Chief Complaint: Arrhythmia/Palpitations Stated Complaint: fluttering in chest/Heart rate is up Time Seen by Provider: 05/28/23 08:29 History of Present Illness HPI narrative: Patient is a 68-year-old male history of atrial fibrillation with an ablation hypertension presenting today with fluttering in his chest. He reports that he was standing cooking breakfast when he felt some fluttering he will dizzy and lightheaded it has since resolved. He is in sinus rhythm with a heart rate of 78 on the monitor. He actually has atul on his phone he can touch his apple watch it records his rhythm. I have reviewed it it does look like a sinus rhythm with frequent PVCs. He denies any fever chills or chest pain now. He is feeling a bit better but still says he feels lightheaded. Related Data Home Medications Medication Instructions Recorded Confirmed cholecalciferol (vitamin D3) 25 2,000 unit PO DAILY 06/03/19 04/09/23 mcg (1,000 unit) capsule multivitamin 1 tab PO DAILY 06/03/19 04/09/23 propafenone 325 mg 325 mg PO BID 06/03/19 04/09/23 capsule,extended release 12 hr diltiazem HCl 420 mg capsule,24 420 mg PO QAM 09/15/19 04/09/23 hr,extended release apixaban 5 mg tablet (Eliquis) 5 mg PO BID 09/17/19 04/09/23 losartan 100 mg tablet 100 mg PO DAILY 02/26/20 04/09/23 colchicine 0.6 mg tablet 0.6 mg PO DAILY 11/23/22 04/09/23 Previous Rx's Medication Instructions Recorded bilateral knee high compression #1 ea 06/05/22 stockings gabapentin 600 mg tablet 600 mg PO TID #270 tabs 04/09/23 Allergies Allergy/AdvReac Type Severity Reaction Status Date / Time Penicillins Allergy Mild Hives, Verified 05/28/23 08:41 swelling Review of Systems Review of Systems ROS Unobtainable: All systems reviewed & are unremarkable except as noted in HPI and below Patient History Medical History Calcium pyrophosphate deposition disease (CPPD) Knee pain, right Impaired fasting blood sugar Medicare annual wellness visit, subsequent (10/11/21) Aortic ectasia, abdominal (07/2019) History of smoking 10-25 pack years Balance problem (2017) History of melanoma in situ (2016) Vision disorder Hearing loss Sleep apnea (~2008) Shoulder pain (~2018) Degenerative joint disease (DJD) of lumbar spine (~1994) Fractures (~1969) Chronic back pain (~1993) Cervical spine disease (~2007) Ankle pain (~2001) Rubella (~196) Positive PPD (~1994) Mumps (~1959) Hemochromatosis (2011) GI bleeding (~2002) GERD (gastroesophageal reflux disease) (2004) Hypertension (1999) Atrial fibrillation (2004) Melanoma (~2016) Surgical History Anesthesia History of tonsillectomy (~1959) History of arthroscopy of left knee (~01/2014) History of inguinal hernia repair History of ankle fusion (~01/2013) History of left hip replacement (~2008) Family History Father History of heart disease Congestive heart failure Mother History of heart disease Congestive heart failure Brother Hypertension Grandfather History of heart disease Congestive heart failure Grandmother No problems noted. Grandfather Kidney disease Grandmother Aneurysm Social History household members: spouse Smoking Status: Former smoker Tobacco: How many years used: 20 second hand exposure: No alcohol intake: never substance use type: does not use, former substance user (Quit all listed in 1982.), marijuana, crack/cocaine and amphetamines Smoking Status: Former smoker Substance Use Type: does not use Exam Initial Vital Signs Initial Vital Signs: Vital Signs Pulse Rate 81 05/28/23 08:26 Respiratory Rate 11 L 05/28/23 08:26 Blood Pressure 136/75 05/28/23 08:26 Pulse Oximetry 97 05/28/23 08:26 GENERAL: Alert pleasant 68-year-old and in no distress. HEENT: Head atraumatic,EOMI, pupils reactive, face symmetric, moist mucous membranes CARDIOVASCULAR: Regular rate and rhythm without murmurs, rubs or gallops. RESPIRATORY: Breath sounds equal bilaterally, no wheezes rales or rhonchi. ABDOMEN: Soft, nontender. Normoactive bowel sounds all 4 quadrants. No guarding or rebound. EXTREMITIES: Normal range of motion, no clubbing or edema. Neurovascularly intact NEUROLOGICAL: Alert and oriented x4. SKIN: Warm, dry, no laceration, no petechiae, no rashes or lesions. Course Orders Ordered: ED Orders 05/28/23 08:30 Complete Blood Count AUTO DIFF Stat Comprehensive Metabolic Panel Stat Lipase Stat Troponin & CK Cardiac Panel Stat 05/28/23 08:31 XR chest 1V Stat EKG-12 Lead Stat Discontinued Medications Sodium Chloride (Normal Saline 0.9%) 1,000 mls @ 1,000 mls/hr IV BOLUS ONE Stop: 05/28/23 09:53 Last Infusion: 05/28/23 09:55 Dose: Infused Documented By: Admin: 05/28/23 09:02 Dose: 1,000 mls/hr Documented By: COSME Vital Signs Vital signs: Vital Signs - 8 hr 05/28/23 08:26 05/28/23 08:26 05/28/23 08:30 Temperature Pulse Rate 81 80 Respiratory Rate 11 L 18 Blood Pressure 136/75 Pulse Oximetry 97 97 Oxygen Delivery Method 05/28/23 08:30 05/28/23 08:35 05/28/23 09:00 Temperature 98.1 F Pulse Rate 84 Respiratory Rate 20 Blood Pressure 144/74 H 144/74 H 127/72 Pulse Oximetry 97 Oxygen Delivery Method Room Air 05/28/23 09:00 05/28/23 09:30 05/28/23 09:30 Temperature Pulse Rate 70 68 Respiratory Rate 22 20 Blood Pressure 138/67 Pulse Oximetry 95 96 Oxygen Delivery Method Room Air Room Air MDM - Chest Pain Lab Data 05/28/23 08:30 05/28/23 08:30 Labs: Lab Results 05/28/23 Range/Units 08:30 WBC 6.2 (4.5-11.0) X10^3/uL RBC 4.85 (4.5-5.9) X10^6/uL Hgb 15.2 (13.5-17.5) g/dL Hct 44.8 (41-53) % MCV 92.3 (80-100) fL MCH 31.3 (26-34) PG MCHC 33.8 (30-36) % RDW 13.9 (11.6-14.8) % Plt Count 212 (150-400) X10^3/uL Neut % (Auto) 66.0 (50-75) % Lymph % (Auto) 21.6 L (25-40) % [place] % (Auto) 7.6 (3-14) % Eos % (Auto) 3.8 (2-4) % Baso % (Auto) 1.0 (0-2) % Neut # (Auto) 4100 (7329-5923) /uL Lymph # (Auto) 1300 (5406-3411) /uL [place] # (Auto) 500 (0-900) /uL Eos # (Auto) 200 (0-450) /uL Baso # (Auto) 100 (0-100) /uL Sodium 139 (137-145) mmol/L Potassium 3.9 (3.4-5.1) mmol/L Chloride 105 (98-107) mmol/L Carbon Dioxide 27 (22-32) mmol/L BUN 21 H (9-20) mg/dL Creatinine 0.79 (0.66-1.25) mg/dL Estimated GFR > 60 (>60) mL/min BUN/Creatinine Ratio 26.6 H (6-22) Glucose 140 H (80-110) mg/dL Calcium 9.7 (8.4-10.2) mg/dL Total Bilirubin 0.8 (0.2-1.3) mg/dL AST 23 (17-59) IU/L ALT 13 (<50) IU/L Alkaline Phosphatase 79 (38-126) U/L Total Creatine Kinase 52 L (55-170) U/L Troponin I < 0.012 (0.01-0.034) ng/mL Total Protein 6.9 (6.3-8.2) g/dL Albumin 4.1 (3.5-5.0) g/dL Globulin 2.8 (1.7-4.1) g/dL Albumin/Globulin Ratio 1.5 (1.0-2.8) Lipase 88 (23-300) U/L Imaging Data Chest x-ray: Radiologist's Impression: PROCEDURE: XR CHEST 1V INDICATIONS: chest pain TECHNIQUE: One view of the chest was acquired. COMPARISON: [facility], CR, XR CHEST 1V, 11/13/2021, 20:35. FINDINGS: Surgical changes and devices: None. Lungs and pleura: Lungs are clear. No pleural effusions or pneumothorax. Mediastinum: Mediastinal contours appear normal. Heart size is normal. Bones and chest wall: No suspicious bony lesions. Overlying soft tissues appear unremarkable. IMPRESSION: No acute pulmonary process. Dictated by: Jayla Fisher M.D. on 05/28/2023 at 9:14 ECG Data Interpretation: Normal sinus rhythm rate 69 CA interval 184 QRS [address] changes no PVCs MDM Narrative Medical decision making narrative: Patient 68-year-old male history of atrial fibrillation with ablation presents today fluttering in his chest. I have reviewed his phone which does not look like atrial fibrillation looks like regular PVCs but not bigeminy or trigeminy. No PVCs in the ED. Blood work has been reviewed. No anemia leukocytosis electrolyte abnormality RACHEL or elevated troponin. BUN slightly up at 21 creatinine 0.79. Feels a little lightheaded he got a L of fluid. Chest x-ray has been reviewed there is no abnormality EKG shows a normal sinus rhythm. At this time I think patient's symptoms were secondary to PVCs. Discharge Plan Departure Patient Disposition: Home Clinical Impression: Frequent PVCs Instructions: Premature Ventricular Beats Activity Restrictions/Additional Instructions: *You have been diagnosed with PVCs *What to do: At this time you continue to be in normal sinus rhythm. 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 Stay hydrated today. *Continue to take medications as directed *Follow up with your primary care provider in 2-3 days or call [phone] *Return to ER if you should have increasing fluttering in chest dizziness lightheadedness or chest or any new, worsening or concerning symptoms Prescriptions: No Action Eliquis 5 mg tablet 5 mg PO BID (DME) bilateral knee high compression stockings See Rx Instructions .Route .MEDSUPPLY Qty: 1 0RF Rx Instructions: 15-20 mmHg, 2 pair. propafenone 325 mg capsule,extended release 12 hr 325 mg PO BID cholecalciferol (vitamin D3) 1,000 unit capsule 2,000 unit PO DAILY multivitamin Tablet 1 tab PO DAILY diltiazem HCl 420 mg capsule,extended release 24 hr 420 mg PO QAM gabapentin 600 mg tablet 600 mg PO TID Qty: 270 3RF losartan 100 mg Tablet 100 mg PO DAILY colchicine 0.6 mg Tablet 0.6 mg PO DAILY Referrals: Hugo Rowland ARNP [Primary Care Provider] - Stand Alone Forms: Patient Portal/API
[2023-05-28 08:45] LABS: Add Manual Diff / Slide Review NO; Basophils Absolute Auto 100 /uL (0-100); Eosinophils Absolute Auto 200 /uL (0-450); Eosinophils Percent Auto 3.8 % (2-4); Hematocrit 44.8 % (41-53); Hemoglobin 15.2 g/dL (13.5-17.5); Lymphocytes Absolute Auto 1300 /uL (1100-4500); Lymphocytes Percent Auto 21.6 % (25-40); Mean Corpuscular HGB Conc 33.8 % (30-36); Mean Corpuscular Hemoglobin 31.3 PG (26-34); Mean Corpuscular Volume 92.3 fL (80-100); Monocytes Absolute Auto 500 /uL (0-900); Monocytes Percent Auto 7.6 % (3-14); Neutrophils Absolute Auto 4100 /uL (1500-7000); Platelet Count 212 X10^3/uL (150-400); Red Blood Cell Count 4.85 X10^6/uL (4.5-5.9); Red Cell Distribution Width 13.9 % (11.6-14.8); White Blood Cell Count 6.2 X10^3/uL (4.5-11.0)
[2023-05-28 08:54] LABS: Alanine Aminotransferase 13 IU/L (<50); Albumin 4.1 g/dL (3.5-5.0); Albumin Globulin Ratio 1.5 (1.0-2.8); Alkaline Phosphatase 79 U/L (38-126); Aspartate Aminotransferase 23 IU/L (17-59); BUN Creatinine Ratio 26.6 (6-22); Bilirubin Total 0.8 mg/dL (0.2-1.3); Blood Urea Nitrogen 21 mg/dL (9-20); Calcium 9.7 mg/dL (8.4-10.2); Carbon Dioxide 27 mmol/L (22-32); Chloride 105 mmol/L (98-107); Creatine Kinase 52 U/L (55-170); Estimated Glomerular Filt Rate > 60 mL/min (>60); Globulin 2.8 g/dL (1.7-4.1); Glucose 140 mg/dL (80-110); HEMOLYSIS < 15 (0-50); Lipase 88 U/L (23-300); Potassium 3.9 mmol/L (3.4-5.1); Sodium 139 mmol/L (137-145); Total Protein 6.9 g/dL (6.3-8.2)
[2023-05-28 09:00] VITALS: BP 127/72; PULSE 70; RESP 22; O2SAT 95
[2023-05-28] MEDS: SODIUM CHLORIDE 0.9% 1,000 ML 1000 ML IV (09:02)
[2023-05-28 09:05] LABS: Troponin I < 0.012 ng/mL (0.01-0.034)
[2023-05-28 09:30] VITALS: BP 138/67; PULSE 68; RESP 20; O2SAT 96
== END 2023-05-28 10:00 | disposition home or self-care (01) ==
PROVIDERS: Emergency Provider Emergency Medicine; PCP Registered Nurse Diabetes Educator
DX: I49.3 Ventricular premature depolarization (principal); R07.9 Chest pain, unspecified; Z79.01 Long term (current) use of anticoagulants
CPT/HCPCS: 36415; 71045; 80053; 82550; 83690; 84484; 85025; 93005; 93010; 96360; 99284

== ENCOUNTER 2023-06-20 14:43 | Emergency (ER) | payer MEDICARE, OTHER, SELFPAY ==
[2023-06-20 14:47] VITALS: BP 158/74; PULSE 72; RESP 18; TEMP 37.3; O2SAT 97; BMI 31.1
--- NOTE | 2023-06-20 14:50 | ED_ITS ---
HPI - General Adult General Chief complaint: Dizziness Stated complaint: dizzy spells/ swelling Lower Lleg 05/02 surgery Time Seen by Provider: 06/20/23 14:49 History of Present Illness HPI narrative: 68-year-old male with history of AFib on Eliquis and hemochromatosis presents for evaluation of dizzy spells and swelling of his leg in the aftermath of a surgery on May 02. Patient was at physical therapy earlier today and the therapist and patient state that when he was rolling from his back to his side he became dizzy and states that his eyes were twitching, the symptoms lasted 15- 30 seconds and then resolved. He is not currently dizzy. He denies any lightheadedness, blurred vision, chest pain or shortness of breath. He denies any trauma or headaches, no fever chills, no neck pain. He is not dizzy at all when he remains still and quickly returns to normal after changing position. Additionally they note a bit of swelling in his left calf over the past few days. His surgery was May 02 and in the aftermath he had some problems with the incision site and had a revision with the orthopedist Related Data Home Medications Medication Instructions Recorded Confirmed cholecalciferol (vitamin D3) 25 2,000 unit PO DAILY 06/03/19 05/31/23 mcg (1,000 unit) capsule multivitamin 1 tab PO DAILY 06/03/19 05/31/23 propafenone 325 mg 325 mg PO BID 06/03/19 05/31/23 capsule,extended release 12 hr diltiazem HCl 420 mg capsule,24 420 mg PO QAM 09/15/19 05/31/23 hr,extended release apixaban 5 mg tablet (Eliquis) 5 mg PO BID 09/17/19 05/31/23 losartan 100 mg tablet 100 mg PO DAILY 02/26/20 05/31/23 colchicine 0.6 mg tablet 0.6 mg PO DAILY 11/23/22 05/31/23 Previous Rx's Medication Instructions Recorded bilateral knee high compression #1 ea 06/05/22 stockings gabapentin 600 mg tablet 600 mg PO TID #270 tabs 04/09/23 meclizine 25 mg tablet 25 mg PO BID-TID PRN dizziness #14 06/20/23 tabs Allergies Allergy/AdvReac Type Severity Reaction Status Date / Time Penicillins Allergy Mild Hives, Verified 06/20/23 14:51 swelling Review of Systems Review of Systems Narrative: GENERAL: Denies chills, fatigue, malaise, fever, sweats. HEENT: See HPI RESPIRATORY: See HPI CARDIOVASCULAR: See HPI GASTROINTESTINAL: Denies nausea, vomiting, abdominal pain, diarrhea, constipation, melena. : Denies dysuria, frequency, incontinence, hematuria, urinary retention. MUSCULOSKELETAL: See HPI SKIN: Denies rash, skin lesions, or other NEUROLOGIC: See HPI PSYCHIATRIC: No concerning psychosocial issues. 12 point review of systems is negative except for those stated above Patient History Medical History Calcium pyrophosphate deposition disease (CPPD) Knee pain, right Impaired fasting blood sugar Medicare annual wellness visit, subsequent (10/11/21) Aortic ectasia, abdominal (07/2019) History of smoking 10-25 pack years Balance problem (2016) History of melanoma in situ (2016) Vision disorder Hearing loss Sleep apnea (~2008) Shoulder pain (~2018) Degenerative joint disease (DJD) of lumbar spine (~1994) Fractures (~1969) Chronic back pain (~1993) Cervical spine disease (~2007) Ankle pain (~2001) Rubella (~196) Positive PPD (~1994) Mumps (~1959) Hemochromatosis (2011) GI bleeding (~2002) GERD (gastroesophageal reflux disease) (2004) Hypertension (1999) Atrial fibrillation (2004) Melanoma (~2016) Surgical History Anesthesia History of tonsillectomy (~1959) History of arthroscopy of left knee (~01/2014) History of inguinal hernia repair History of ankle fusion (~01/2013) History of left hip replacement (~2008) Family History Father History of heart disease Congestive heart failure Mother History of heart disease Congestive heart failure Brother Hypertension Grandfather History of heart disease Congestive heart failure Grandmother No problems noted. Grandfather Kidney disease Grandmother Aneurysm Social History household members: spouse Smoking Status: Former smoker Tobacco: How many years used: 20 second hand exposure: No alcohol intake: never substance use type: does not use, former substance user (Quit all listed in 1983.), marijuana, crack/cocaine and amphetamines Smoking Status: Former smoker Substance Use Type: does not use Exam Narrative Exam Narrative: GENERAL: [68] year old patient appears stated age. Well-developed patient, in mild distress. HEAD: Atraumatic. Normocephalic. EYES: Pupils equal round and reactive. Extraocular motions intact. No scleral icterus. No injection or drainage. Very short episode horizontal nystagmus with fast wish to the right when patient rolls to the right, lasts 15 seconds before resolving ENT: Nose without bleeding, purulent drainage. Throat without erythema, tonsillar hypertrophy or exudate. Airway patent. NECK: Trachea midline. Non tender CARDIOVASCULAR: Regular rate and rhythm without murmurs, gallops, or rubs. RESPIRATORY: Clear to auscultation. Breath sounds equal bilaterally. No wheezes, rales, or rhonchi. GASTROINTESTINAL: Abdomen soft, non-tender, nondistended. EXTREMITIES: left knee with midline incision noting a small amount of dehiscence, no active drainage, minimal surrounding erythema, no fluctuance or induration, left calf is slightly edematous compared to the right, no redness or warmth BACK: Nontender without deformity or crepitance. No flank tenderness. NEURO: AOx3. SKIN: No rash or erythema of visible areas Initial Vital Signs Initial Vital Signs: Vital Signs Temperature 99.2 F 06/20/23 14:47 Pulse Rate 72 06/20/23 14:47 Respiratory Rate 18 06/20/23 14:47 Blood Pressure 158/74 H 06/20/23 14:47 Pulse Oximetry 97 06/20/23 14:47 Oxygen Delivery Method Room Air 06/20/23 14:47 Course Orders Ordered: Discontinued Medications Sodium Chloride (Normal Saline 0.9%) 1,000 mls @ 150 mls/hr IV CONT MICHAEL Last Infusion: 06/20/23 16:41 Dose: Infused Documented By: Admin: 06/20/23 15:55 Dose: 150 mls/hr Documented By: AMAguilar Vital Signs Vital signs: Vital Signs - 8 hr 06/20/23 14:47 Temperature 99.2 F Pulse Rate 72 Respiratory Rate 18 Blood Pressure 158/74 H Pulse Oximetry 97 Oxygen Delivery Method Room Air Medical Decision Making Lab Data 06/20/23 15:25 06/20/23 15:25 Labs: Lab Results 06/20/23 06/20/23 Range/Units 15:00 15:25 WBC 7.3 (4.5-11.0) X10^3/uL RBC 4.80 (4.5-5.9) X10^6/uL Hgb 15.0 (13.5-17.5) g/dL Hct 44.0 (41-53) % MCV 91.6 (80-100) fL MCH 31.3 (26-34) PG MCHC 34.1 (30-36) % RDW 13.7 (11.6-14.8) % Plt Count 229 (150-400) X10^3/uL Neut % (Auto) 66.0 (50-75) % Lymph % (Auto) 21.8 L (25-40) % [place] % (Auto) 8.0 (3-14) % Eos % (Auto) 3.4 (2-4) % Baso % (Auto) 0.8 (0-2) % Neut # (Auto) 4800 (7950-2598) /uL Lymph # (Auto) 1600 (3933-5779) /uL [place] # (Auto) 600 (0-900) /uL Eos # (Auto) 200 (0-450) /uL Baso # (Auto) 100 (0-100) /uL Sodium 138 (137-145) mmol/L Potassium 3.9 (3.4-5.1) mmol/L Chloride 105 (98-107) mmol/L Carbon Dioxide 26 (22-32) mmol/L BUN 24 H (9-20) mg/dL Creatinine 0.72 (0.66-1.25) mg/dL Estimated GFR > 60 (>60) mL/min BUN/Creatinine Ratio 33.3 H (6-22) Glucose 104 (80-110) mg/dL Calcium 9.2 (8.4-10.2) mg/dL Troponin I < 0.012 (0.01-0.034) ng/mL Urine Color Yellow Urine Appearance Clear Urine pH 6.5 (4.5-8.0) Ur Specific [place] <=1.005 (1.000-1.035) Urine Protein Negative (Negative) Urine Glucose (UA) Negative (Negative) g/dL Urine Ketones Negative (NEGATIVE) Urine Occult Blood Negative (Negative) Urine Nitrate Negative (Negative) Urine Bilirubin Negative (NEGATIVE) Urine Urobilinogen 1.0 (0.2) E.U./dL Ur Leukocyte Esterase Negative (NEGATIVE) MDM Narrative Medical decision making narrative: [68] year old patient presents with dizziness with change in position Multiple etiologies for patient's symptoms considered including, but not limited to: [Peripheral vertigo such as BPPV versus central causes such as posterior circulation stroke versus intracranial hemorrhage versus cardiac versus] Prior Charts reviewed in our EMR Primary Historian: patient Labs reviewed and interpreted by myself: No leukocytosis or left shift, no signs of anemia, primary electrolytes, renal function and troponin within normal Imaging reviewed: CT of the head without intracranial hemorrhage Patient presents with a chief complaint a vertiginous type dizziness that was noted when rolling from [id number], most severe when rolling to his right side. He states the dizziness is reproducible and seems to last less than 30 seconds, he states it is better now than earlier. He denies any vertigo or dizziness when sitting still, symptoms improved with eyes closed. He denies cardiac equivalent such as chest pain or shortness of breath, no palpitations. He is had no trauma or injury. Symptoms most consistent with a peripheral vertigo given its reproducibility and fatigability as well as horizontal nystagmus with fast twitch of the right on exam. Head CT is unremarkable and we did discuss further pursuit less likely diagnoses such as posterior circulation stroke with CT angiogram and even possibly an MRI but sure the opinion that given his significant improvement symptoms and short duration along with lack of ataxia that we will hold off for now, prescription sent for meclizine and patient encouraged to follow closely with his PCP Findings and discharge diagnosis discussed with patient/family followed by verbalization of understanding Return precautions discussed with patient/family whom verbalize understanding of diagnosis and plan Discharge Plan Departure Patient Disposition: Home Clinical Impression: Vertigo Instructions: DI for Vertigo Activity Restrictions/Additional Instructions: *You have been diagnosed with [peripheral vertigo. As we discussed your history and physical exam are very reassuring as are the labs and imaging. There is no evidence of dehydration or electrolyte abnormality nor any evidence of bleeding or abnormality on your head.] *What to do: *Please continue to take your regular medications as directed. [ x] New medication prescriptions sent to your pharmacy: [ [facility]] [ ] New medication written as a paper prescription [ ] No new medications given *Please follow up with your primary care provider in 2-3 days, call for an appointment. Let them know you were seen in the Emergency Department and that we ask that you be seen in follow up. We will electronically transmit a record of today's note if your PCP is in our system *If you do not have a primary care provider please contact the [facility] Resource line at [phone]. They will ask some questions about your medical history and help get you set up with a doctor in the community. *Return to Emergency Department if you should have any new, worsening or concerning symptoms, such as [fever greater than 101 F, shaking chills, worsening pain, persistent vomiting or other bothersome symptoms] Prescriptions: New meclizine 25 mg tablet 25 mg PO BID-TID PRN (Reason: dizziness) Qty: 14 0RF No Action Eliquis 5 mg tablet 5 mg PO BID (DME) bilateral knee high compression stockings See Rx Instructions .Route .MEDSUPPLY Qty: 1 0RF Rx Instructions: 15-20 mmHg, 2 pair. propafenone 325 mg capsule,extended release 12 hr 325 mg PO BID cholecalciferol (vitamin D3) 1,000 unit capsule 2,000 unit PO DAILY multivitamin Tablet 1 tab PO DAILY diltiazem HCl 420 mg capsule,extended release 24 hr 420 mg PO QAM gabapentin 600 mg tablet 600 mg PO TID Qty: 270 3RF losartan 100 mg Tablet 100 mg PO DAILY colchicine 0.6 mg Tablet 0.6 mg PO DAILY Referrals: Hugo Rowland ARNP [Primary Care Provider] - Stand Alone Forms: Patient Portal/API
--- NOTE | 2023-06-20 15:25 | DI.US.S_ITS ---
PROCEDURE: US PERIPH VENOUS LOW EXTREM LT INDICATIONS: LEFT LEG EDEMA POST TKA TECHNIQUE: Real-time imaging, as well as color and pulse Doppler interrogation, were performed of the lower extremity deep veins from the inguinal ligament to the popliteal fossa, with documentation of the visualized calf veins. COMPARISON: None. FINDINGS: The common femoral, femoral, popliteal, and the visualized calf veins are normally compressible, and free of intraluminal thrombus. Color and pulse Doppler demonstrate normal phasic intraluminal flow. There is normal augmentation response to distal compression maneuver. IMPRESSION: No findings of lower extremity deep venous thrombosis. Dictated by: John Gtz M.D. on 06/20/2023 at 16:05 Approved by: John Gtz M.D. on 06/20/2023 at 16:05
--- NOTE | 2023-06-20 15:25 | DI.CT.S_ITS ---
PROCEDURE: CT HEAD/BRAIN WO CON INDICATIONS: dizzy, on thinners TECHNIQUE: Noncontrast 4.5 mm thick angled axial sections acquired from the foramen magnum to the vertex, with coronal and sagittal reformats. For radiation dose reduction, the following was used: automated exposure control, adjustment of mA and/or kV according to patient size. COMPARISON: None. FINDINGS: Image quality: Excellent. CSF spaces: Basal cisterns are patent. No extra-axial fluid collections. The ventricles are symmetric in size and shape. Brain: No intracranial bleeds or masses. There is cerebral volume loss for age, with resultant ventricular and sulcal prominence. There are periventricular and deep white matter chronic small vessel ischemic changes. There is intracranial internal carotid artery atherosclerosis. Skull and face: Calvarium and visualized facial bones appear intact, without suspicious lesions. Sinuses: Visualized sinuses and mastoids are clear. IMPRESSION: No acute intracranial pathology. Dictated by: Gurdeep Wolf M.D. on 06/20/2023 at 15:43 Approved by: Gurdeep Wolf M.D. on 06/20/2023 at 15:44
[2023-06-20 15:48] LABS: Add Manual Diff / Slide Review NO; Basophils Absolute Auto 100 /uL (0-100); Basophils Percent Auto 0.8 % (0-2); Eosinophils Absolute Auto 200 /uL (0-450); Eosinophils Percent Auto 3.4 % (2-4); Lymphocytes Absolute Auto 1600 /uL (1100-4500); Lymphocytes Percent Auto 21.8 % (25-40); Mean Corpuscular HGB Conc 34.1 % (30-36); Mean Corpuscular Hemoglobin 31.3 PG (26-34); Mean Corpuscular Volume 91.6 fL (80-100); Monocytes Absolute Auto 600 /uL (0-900); Neutrophils Absolute Auto 4800 /uL (1500-7000); Platelet Count 229 X10^3/uL (150-400); Red Cell Distribution Width 13.7 % (11.6-14.8); White Blood Cell Count 7.3 X10^3/uL (4.5-11.0)
[2023-06-20 15:49] LABS: Appearance Urine UA CLEAR; Bilirubin Urine UA NEGATIVE (NEGATIVE); Color Urine UA YELLOW; Glucose Urine UA NEGATIVE (Negative); Ketones Urine UA NEGATIVE (NEGATIVE); Leukocyte Esterase Urine UA NEGATIVE (NEGATIVE); Nitrite Urine UA NEGATIVE (Negative); Occult Blood Urine UA NEGATIVE (Negative); Protein Urine UA NEGATIVE (Negative); Specific Gravity Urine UA <=1.005 (1.000-1.035); pH Urine UA 6.5 (4.5-8.0)
[2023-06-20] MEDS: SODIUM CHLORIDE 0.9% 1,000 ML 150 ML IV (15:55)
[2023-06-20 16:03] VITALS: PULSE 64; O2SAT 97
[2023-06-20 16:06] LABS: BUN Creatinine Ratio 33.3 (6-22); Blood Urea Nitrogen 24 mg/dL (9-20); Calcium 9.2 mg/dL (8.4-10.2); Carbon Dioxide 26 mmol/L (22-32); Chloride 105 mmol/L (98-107); Estimated Glomerular Filt Rate > 60 mL/min (>60); Glucose 104 mg/dL (80-110); HEMOLYSIS < 15 (0-50); Potassium 3.9 mmol/L (3.4-5.1); Sodium 138 mmol/L (137-145)
[2023-06-20 16:16] LABS: Troponin I < 0.012 ng/mL (0.01-0.034)
[2023-06-20 16:30] VITALS: BP 161/75; PULSE 61; RESP 21; O2SAT 96
== END 2023-06-20 16:40 | disposition home or self-care (01) ==
PROVIDERS: Emergency Provider Emergency Medicine; PCP Registered Nurse Diabetes Educator
DX: R42 Dizziness and giddiness (principal); I48.91 Unspecified atrial fibrillation; Z87.891 Personal history of nicotine dependence
CPT/HCPCS: 36415; 70450; 80048; 81003; 84484; 85025; 93005; 93971; 96360; 99284

== ENCOUNTER → 2023-08-21 06:43 | Outpatient (CLI) | payer MEDICARE, OTHER, SELFPAY ==
--- NOTE | 2023-08-21 06:45 | DI.ECHO.S_ITS ---
[facility] +---------+ : : [address] : : : : [id number] : : : : Phone: [phone]---------+ Echocardiogram Report + + :Name: EVER WESLEY Study Date: 08/21/2023 Height: 73 in : :[facility] ReadingLocation: Weight: 230 lb : : Gender: Male BSA: 2.3 m2 : :: 1955 Age: 68 yrs BP: 142/82 mmHg: :Reason For Study: PVC : :Ordering Physician: ROHITH, : :MODESTO Performed By: Rose Kumari : :Referring: MODESTO OSUNA : + + Interpretation Summary 1) Normal left ventricular thickness, size, wall motion, and systolic function (EF 55-60%). 2) Mildly enlarged right ventricle with normal function. 3) No significant valvular abnormalities. 4) The ascending aorta is at the upper limits of normal in size at 3.7cm. 5) Compared to the Echo done 09/22/2019, no significant change. Procedure: A two-dimensional transthoracic echocardiogram with color flow and Doppler was performed. The study quality was technically adequate. Comparison is made with the echocardiogram of 09/22/2019. The patient was in sinus rhythm with heart rates between 60-85 bpm during the exam. The patient had occasional PVCs during the exam. Left Ventricle: The left ventricle is normal in size and wall thickness. The ejection fraction is estimated to be 55-60%. Left ventricular systolic function appears normal without focal wall motion abnormalities. Diastolic parameters suggest a relaxation abnormality of the left ventricle, consistent with probable normal filling pressures. Right Ventricle: The right ventricle is mildly dilated. The right ventricular systolic function is normal. Atria: The left atrium is moderately dilated. Right atrial size is normal. There is no Doppler evidence for an interatrial shunt. Mitral Valve: The mitral valve is normal in structure and function. There is trace mitral regurgitation. Aortic Valve: The aortic valve is trileaflet. The aortic valve opens well. The aortic valve is slightly calcified. There is no aortic valve stenosis. No aortic regurgitation is present. Tricuspid Valve: The tricuspid valve is normal in structure and function. There is mild tricuspid regurgitation. Right ventricular systolic pressure is estimated to be 24 mmHg plus the clinically estimated CVP which cannot be estimated on this exam. Pulmonic Valve: The pulmonic valve leaflets are thin and pliable; valve motion is normal. There is a trace or physiologic amount of pulmonic regurgitation. Great Vessels: The aortic root is normal size. The ascending aorta is at the upper limits of normal in size. The inferior vena cava was not well visualized. Pericardium/ Pleura There is no pericardial effusion. There is no pleural effusion. MMode/2D Measurements & Calculations LVIDd: 5.4 cm LVOT diam: 2.5 cm LVIDs: 3.5 cm Ao root diam: 3.8 cm FS: 35.9 % asc Aorta Diam: 3.7 cm EPSS: 0.91 cm Ao Arch Diam (Prox Trans): 2.8 cm IVSd: 1.0 cm LVPWd: 0.83 cm LV l[place]. diameter/BSA (cm/m^2): 2.4 LV sys. diameter/BSA (cm/m^2): 1.5 LA A2 area: 25.8 cm2 RA long axis: 5.7 cm LA A4 area: 22.3 cm2 RA area: 22.5 cm2 LA length (vol): 6.3 cm RA vol: 75.3 ml LA vol: 77.8 ml RA : 33.0 ml/m2 LA vol index: 34.1 ml/m2 RVD1 (basal): 4.5 cm TAPSE: 2.2 cm Doppler Measurements & Calculations Ao V2 max: 161.2 cm/sec LVOT Max Tyrone: 104.5 cm/sec Ao V2 mean: 116.2 cm/sec LV V1 max P.4 mmHg Ao max P.4 mmHg LV V1 VTI: 22.4 cm Ao mean P.9 mmHg JAREN(I,D): 3.3 cm2 Ao V2 VTI: 32.3 cm JAREN(V,D): 3.1 cm2 sev ratio: 0.70 JAREN indexed to BSA (cm^2/m^2): 1.5 MV E max tyrone: 71.8 cm/sec TR max tyrone: 246.9 cm/sec MV A max tyrone: 88.2 cm/sec TR max P.4 mmHg MV E/A: 0.81 PA V2 max: 119.3 cm/sec Med Peak E' Tyrone: 7.4 cm/sec PA V2 mean: 82.3 cm/sec E/E' med: 9.7 PA mean P.0 mmHg Lat Peak E' Tyrone: 11.4 cm/sec PA pr(Accel): 43.0 mmHg E/E' lat: 6.3 E/e' average: 8.0 MV dec time: 0.24 sec SV(LVOT): 107.8 ml Reading Physician:09:12 AM
== END ==
LOC: ECHO 06:44
PROVIDERS: PCP Registered Nurse Diabetes Educator; Referring Provider Internal Medicine Cardiovascular Disease; Visit Provider Internal Medicine Cardiovascular Disease
DX: I07.1 Rheumatic tricuspid insufficiency (principal); I49.3 Ventricular premature depolarization
CPT/HCPCS: 93306

== ENCOUNTER → 2024-07-03 06:43 | Outpatient (CLI) | payer MEDICARE, OTHER, SELFPAY ==
--- NOTE | 2024-07-03 06:44 | DI.US.S_ITS ---
PROCEDURE: US RETRO PERITONEAL LIMITED INDICATIONS: RE-EVALUATE AORTA TECHNIQUE: Real time scanning was performed of the aorta and iliac arteries, with image documentation. COMPARISON: None. FINDINGS: Aorta: Proximal aortic diameter measures 2.2 cm. Mid-aorta measures 1.9 cm. Distal aortic diameter is 1.7 cm. Iliac arteries: Right common iliac artery measures 1.2 cm. Left common iliac artery measures 1.2 cm. IMPRESSION: No evidence of AAA. Dictated by: Deshawn Newton M.D. on 07/03/2024 at 14:56 Approved by: Deshawn Newton M.D. on 07/03/2024 at 15:01
== END ==
LOC: US 06:43
PROVIDERS: Family Provider Registered Nurse Diabetes Educator; PCP Registered Nurse Diabetes Educator; Referring Provider Registered Nurse Diabetes Educator; Visit Provider Registered Nurse Diabetes Educator
DX: I77.811 Abdominal aortic ectasia (principal)
CPT/HCPCS: 76775

== ENCOUNTER → 2025-01-15 08:36 | Outpatient (CLI) | payer MEDICARE, OTHER, SELFPAY ==
--- NOTE | 2025-01-15 18:17 | ST.SWALLOW ---
Visit Care Team Role Provider Type Amanda Dickerson MD Primary Care Provider Non-Staff Specialty: Medical Address: [address] [facility], [place], [address] Email: VIVI Veloz Family Provider Advanced Activities Leader Specialty: Medical Address: [address] [place] [address], [id number] Email: [email or web address] Scott Greco MD Attending Provider Physician Referring Provider Specialty: Ear, Nose, Throat Address: [address] [place] [address], [id number] Email: [email or web address] Modified Barium Swallow Study [employer] Modified Barium Swallow Study Start: 01/15/25 17:17 Freq: Status: Active Protocol: Document 01/15/25 17:17 LNK (Rec: 01/15/25 18:17 LNK Desktop) Modified Barium Swallow Study Total Time Visit Start Time 09:00 Visit Stop Time 09:45 Total Visit Minutes [address] Greco ENT Setting Setting Outpatient Care Patient Information Identification Type Name,Date of Patient History Pt was seen for a Modified Barium Swallow Study with c/ o of frequent coughing when eating/drinking. Pt repots cough and congestion. He denies any shortness of breath or fever. Patient noted that his cough appears to be worse in the morning. Pt has a PMH that includes GERD , smoking, use of a CPAP. Subjective Pt was seated in the flouroscopy chair with directions Observations and procedures explained for him. He indicated he understood and agreed to proceed. Patient Positioning Position View Lat-A/P Imaging Lateral View Textures Administered Trials Presented Thin Liquid via Spoon (IDDSI 0),Thin Liquid via Cup ( IDDSI 0),Extremely Thick Liquid via Spoon (IDDSI 4), Regular (IDDSI 7) Barium Tablet Yes The IDDSI Framework Protocol: IDDSI.1 Oral Impairment Source: The Modified Barium Swallow Impairment Profile (MBSImP??) Initiation of Bolus head at posterior laryngeal surface of epiglottis Pharyngeal Swallow Additional Oral Oral phase of swallow observed to be WNL Impairment *OME and DKS were observed to be WNL. Observations *Dentition natural and in good hygiene *Mastication observed with rotary chew pattern. *Good bolus formation, control and AP transition. *Velopharyngeal closure was WNL. Pharyngeal Impairment Source: The Modified Barium Swallow Impairment Profile (MBSImP??) Soft Palate No bolus between soft palate & pharyngeal wall Elevation Laryngeal Elevation Part.sup.move.thyroid cart/part.approx.arytenoids to epiglot.petiole Anterior Hyoid Partial anterior movement Excursion Epiglottic Movement Partial inversion Laryngeal Vestibular Incomplete; narrow column air/contrast in laryngeal Closure vestibule Pharyngeal Stripping Present - complete Wave Pharyngoesophageal Complete distention & complete duration; no obstruction Segment Opening of flow Tongue Base Trace column of contrast/air betwn tongue base & post. Retraction pharyngeal wall Pharyngeal Residue Trace residue within/on pharyngeal structures Location Diffuse (>3 areas) Additional *Reduced base of tongue strength Pharyngeal *Reduced hyolaryngeal elevation and movement Impairment *Reduced epiglottic inversion Observations *Irregular tissue formation on posterior wall of the pharynx and at UES opening altering bolus flow to esophagus *Unusual tissue noted between the larynx and posterior pharyngeal wall when pharynx contracted *Laryngeal penetration with consecutive swallows x4; No tracheal aspiration A/P View Textures Administered Trials Presented Thin Liquid via Cup (IDDSI 0) The IDDSI Framework Protocol: IDDSI.1 A/P View Observations Pharyngeal Complete Contraction Esophageal Clearance Complete clearance; esophageal coating Upright Position Vocal Fold Function Good Additional A-P Esophageal phase of swallow observed to be WNL Observations Clinical Impressions Dysphagia Type Pharyngeal Findings Pharyngeal phase dysphagia characterized by overall weakness was observed. Laryngeal penetration observed without tracheal aspiration. Pt could benefit from swallow therapy targeting base of tongue exercises to increase strength, ROM and improve airway protection for large, rapid boluses such as consecutive swallows of liquids. Unusual and irregular tissue was noted within the pharynx. It is unknown if this is a normal variant or something that needs to be examined more thoroughly. There did appear to be altered flow of the boluses through the pharynx outlining these pharyngeal structures. Referral back to ENT for further examination is recommended. Additionally ST for swallow exercises is recommended. Rehabilitation Excellent Potential Patient Appropriate Yes for Therapy Recommendations Diet Comments No diet changes recommended Treatment Plan Therapy Outpatient Speech Therapy Recommendations Recommended ENT Consult Referrals
== END ==
LOC: RAD 08:37
PROVIDERS: Family Provider Registered Nurse Diabetes Educator; PCP Internal Medicine; Referring Provider Otolaryngology; Visit Provider Otolaryngology
DX: R13.19 Other dysphagia (principal)
CPT/HCPCS: 74230; 92611

== ENCOUNTER → 2025-02-05 10:18 | Outpatient (CLI) | payer OTHER, SELFPAY ==
--- NOTE | 2025-02-05 10:19 | DI.MRI.S_ITS ---
PROCEDURE: MR CERVICAL SPINE WO CON INDICATIONS: Cervical disc disorder with radiculopathy, unspeci TECHNIQUE: Noncontrast sagittal T1 spin echo and T2 fast spin echo, sagittal STIR, foraminal oblique sagittal T2 fast spin echo, and axial gradient echo or T2 fast spin echo through the cervical spine. COMPARISON: None. FINDINGS: Image quality: Excellent. Alignment and Curvature: There is a mild reversal of the cervical lordotic curvature. Bone Marrow: Marrow demonstrates normal overall signal. Severe disc space narrowing with degenerative endplate changes at C5-C6 and C6-C7. Spinal Cord: Visualized spinal cord has normal size and signal. No cerebellar tonsillar herniation. Paraspinous Soft Tissues: No paravertebral masses. Prevertebral soft tissues are normal in thickness. The combination of disc bulging with endplate spurring and facet arthropathy result in the following: C2-C3: Moderate right and severe left foraminal stenosis with mild central canal stenosis. C3-C4: Moderate central canal stenosis with severe left and moderate right foraminal stenosis. C4-C5: Mild central canal stenosis with severe left and moderate right foraminal stenosis. C5-C6: Moderate central canal stenosis with moderate bilateral foraminal stenosis. C6-C7: Moderate central canal stenosis with severe bilateral foraminal stenosis. C7-T1: Moderate left and mild right foraminal stenosis. IMPRESSION: Multilevel degenerative disc disease results in varying degrees of central canal and foraminal stenosis. Dictated by: Carly Foley M.D. on 02/05/2025 at 16:37 Approved by: Carly Foley M.D. on 02/05/2025 at 16:40
== END ==
PROVIDERS: Family Provider Registered Nurse Diabetes Educator; PCP Family Medicine; Referring Provider Physician Assistant; Visit Provider Physician Assistant
DX: M50.10 Cervical disc disorder with radiculopathy, unspecified cervical region (principal); M48.02 Spinal stenosis, cervical region
CPT/HCPCS: 72141

== ENCOUNTER → 2025-05-27 07:13 | Outpatient (CLI) | payer MEDICARE, OTHER, SELFPAY ==
--- NOTE | 2025-05-27 08:25 | DI.CT.S_ITS ---
PROCEDURE: CT LUNG LOW DOSE SCREENING INDICATIONS: hx of nicotine dependence TECHNIQUE: Noncontrast 2.0-2.5 mm thick sections acquired from the pulmonary apices to the posterior costophrenic angles. 7 mm thick axial MIP, and 5 mm coronal and sagittal reformats were then acquired. For radiation dose reduction, the following was used: automated exposure control, adjustment of mA and/or kV according to patient size. COMPARISON: None. FINDINGS: Image quality: Diagnostic. Lower Neck: No enlarged lymph nodes. Thyroid: No thyroid nodules which require sonographic follow up, per consensus guidelines.>> Axillae: No enlarged lymph nodes. Chest Wall: Unremarkable. Bones: No aggressive appearing bony lesions. Lungs and Pleura: No pneumothorax or pleural effusions. No consolidation or suspicious nodules. Heart: Heart size is normal. No pericardial effusion. Thoracic Vessels: The aorta and pulmonary arteries demonstrate normal size. Mild single vessel coronary artery atherosclerotic calcifications are seen. Mediastinum and Rosario: No enlarged lymph nodes. Esophagus: No wall thickening. No hiatal hernia. Upper Abdomen: Single calcified is seen in dependent portion of gallbladder lumen without gallbladder wall thickening. No abnormalities are seen in visualized portion of liver, spleen, and pancreas. IMPRESSION: 1. No suspicious pulmonary nodules. 2. Scattered atelectasis in periphery of bilateral lower lung keenan. LUNG-RADS 1; continued annual screening, if eligible. Clinically Significant Non-pulmonary Findings: Cholelithiasis without CT evidence of acute cholecystitis. [id number] coronary artery atherosclerotic calcifications. Dictated by: Chau Bahena M.D. on 05/27/2025 at 15:11 Approved by: Chau Bahena M.D. on 05/27/2025 at 15:24
[2025-05-27 09:32] LABS: Hematocrit 47.0 % (41-53); Hemoglobin 16.0 g/dL (13.5-17.5); Mean Corpuscular HGB Conc 34.0 % (30-36); Mean Corpuscular Hemoglobin 31.2 PG (26-34); Mean Corpuscular Volume 91.8 fL (80-100); Platelet Count 169 X10^3/uL (150-400)
[2025-05-27 09:51] LABS: Blood Urea Nitrogen 17 mg/dL (9-20); Calcium 9.7 mg/dL (8.4-10.2); Carbon Dioxide 31 mmol/L (22-32); Chloride 103 mmol/L (98-107); Cholesterol 154 mg/dL (140-199); Estimated Glomerular Filt Rate > 60 mL/min (>60); Glucose 116 mg/dL (70-99); HDL Cholesterol 73 mg/dL (40-60); HEMOLYSIS < 15 (0-50); Potassium 4.6 mmol/L (3.4-5.1); Sodium 142 mmol/L (137-145); Triglycerides 122 mg/dL (35-150)
== END ==
LOC: CT 07:16
PROVIDERS: Internal Medicine Cardiovascular Disease; PCP Family Medicine; Referring Provider Family Medicine; Visit Provider Family Medicine
DX: Z12.2 Encounter for screening for malignant neoplasm of respiratory organs (principal); Z87.891 Personal history of nicotine dependence; I10 Essential (primary) hypertension; J98.11 Atelectasis; K80.20 Calculus of gallbladder without cholecystitis without obstruction; I25.10 Atherosclerotic heart disease of native coronary artery without angina pectoris; Z79.01 Long term (current) use of anticoagulants
CPT/HCPCS: 36415; 71271; 80048; 80061; 85027

== ENCOUNTER → 2025-06-02 08:19 | Outpatient (CLI) | payer MEDICARE, OTHER, SELFPAY ==
[2025-06-02 08:47] LABS: Hemoglobin A1C% w Est Avg Glu 5.5 % (4.0-6.0)
== END ==
PROVIDERS: PCP Family Medicine; Referring Provider Family Medicine; Visit Provider Family Medicine
DX: R73.01 Impaired fasting glucose (principal)
CPT/HCPCS: 36415; 83036